=== PATIENT | female | born 1940 | race Caucasian/White ===

== ENCOUNTER 2017-07-09 18:04 | Inpatient (IN) | payer BC, OTHER ==
[~2017-07-09] VITALS: Ht 157.5 cm; Wt 98.6 kg
[2017-07-09 00:45] VITALS: BP 130/68; PULSE 81; TEMP 36.4
[~2017-07-09 18:04] MED LIST: AMOX500C3 PO; BENA1TAB53 PO; CHOL4POW6 PO; DILT-117 PO; FURO40TA3 PO; GLCSR10 PO; GLYCDRO6 OP; LEVO150T9 PO; LUTE6CAP PO; METF500T PO; MULT-845 PO; POTA10CA28 PO; TYLOTC500 PO; ZINC50TA3 PO; [UNRECOGNIZED DRUG - CODE] PO
[2017-07-09] MEDS ORDERED: SODIUM CHLORIDE 0.9% 1000ML 1,000 ML IV SCH (21:15)
[2017-07-09] MEDS ORDERED: ICU PROTOCOL FOR HYPERGLYCEMIA PRN (21:15)
[2017-07-09] MEDS ORDERED: LORAZEPAM 2 MG/ML 1 ML VIAL IV PRN (21:15)
[2017-07-09 21:55] LABS: BLOOD UREA NITROGEN 32 mg/dl (7-18); CALCIUM 9.8 mg/dl (8.5-10.1); CARBON DIOXIDE 19 mmol/L (21-32); CREATININE 1.33 mg/dl (0.60-1.20); GLUCOSE 145 mg/dl (70-99); PHOSPHORUS 4.5 mg/dl (2.5-4.9); POTASSIUM 8.2 mmol/L (3.5-5.1); SODIUM 141 mmol/L (136-145)
[2017-07-09 22:01] VITALS: BP 148/67; PULSE 84; TEMP 36.4; O2SAT 92
[2017-07-09] MEDS ORDERED: ONDANSETRON INJ 2 MG/ML 2 ML VIAL ONE (22:17)
[2017-07-09 22:38] LABS: ISTAT POTASSIUM 7.8 mEq/L (3.3-5.0); ISTAT SODIUM 143 mEq/L (135-144)
[2017-07-09] MEDS ORDERED: GLUCOSE 40% GEL 15 GM TUBE PO PRN (22:45)
[2017-07-09] MEDS ORDERED: GLUCAGON FOR INJ 1 MG VIAL SQ PRN (22:45)
[2017-07-09] MEDS ORDERED: DEXTROSE 50% 50 ML SYR IV PRN (22:45)
[2017-07-09] MEDS ORDERED: GLUCOSE 10 TABS/TUBE PO PRN (22:45)
--- NOTE | 2017-07-09 23:16 | History and Physical ---
History & Physical Date & Time of Service: Jul 09, 2017 at 21:54 Chief Complaint: Hypokalemia, Bradycardia Primary Care Physician: Betsy Jolley D.O. History of Present Illness Source: patient Patient is a 77 year old female with a past medical history of Right Sided CVA with hemiparesis in 2016, HTN, HLD, DM, Stage 2 CKD, and Hypothyroidism s/p treatment of thyroid cancer that presents as a Direct Admit from [facility] with Hyperkalemia. The patient reports having nausea and vomiting over the last week with minimal po intake. The patient also states that she has been having a productive cough but denies any shortness of breath, fevers, chills, or sweats. The patient was found to have a Potassium of 9.2 with a Creatinine of 1.4. The patient was given Sodium Bicarb 50ml, Calcium Cl 1gm, Dextrose 50% 50ml, Insulin Regular 2.5 units, Albuterol 1 amp, and 500ml of NS. The patient denies any chest pain, palpitations, shortness of breath, abdominal discomfort, or any other acute complaints. The patient at baseline has right sided hemiparesis, paralysis with sensation of the left lower extremity, and limited mobility of her left upper extremity. The patient is incontinent to urine and stool and has a steve placed at [facility] but does not have a chronic steve. The patient has only had 1 bowel movement over the last week and normally has 1 bowel movement daily. Social History Smoking Status: Never Smoker Drug Use: none Marital Status: single Housing status: lives alone Occupational Status: employed Immunizations History of Influenza Vaccine: Yes Influenza Vaccine Date: Feb 22, 2010 History of Tetanus Vaccine?: Yes History of Pneumococcal: Yes Pneumococcal Date: Apr 29, 2009 History of Hepatitis B Vaccine: No Multi-Drug Resistant Organisms History of MDRO: No Allergies Coded Allergies: Latex1 -Allergic Contact Dermititis (Verified Allergy, Intermediate, SKIN PEELS, 02/18/16) Sulfa Drugs (Verified Allergy, Intermediate, "SKIN TURNS RED", 02/18/16) Codeine (Verified Adverse Reaction, Mild, MAKES HER SICK, 02/18/16) Home Medications Scheduled Acetaminophen (Tylenol), 1,000 MG PO PRN Albuterol Sulfate (Albuterol Sulfate), 2.5 MG INH Q6 Aspirin (Aspirin), 81 MG PO DAILY Atorvastatin (Lipitor), 40 MG PO DAILY Benazepril (Lotensin), 40 MG PO HS Diltiazem Hcl Ext Rel (Tiazac), 300 MG PO DAILY Fish Oil ([place]-3), 1 CAP PO BID Furosemide (Lasix), 60 MG PO DAILY Glipizide (Glucotrol), 10 MG PO DAILY Glipizide (Glucotrol), 5 MG PO DAILY Levothyroxine Sodium (Levothyroxine Sodium), 137 MCG PO DAILY Metformin Ext Rel (Glucophage Ext Rel), 1,000 MG PO BID Multiple Vitamins W/ Minerals (Centrum Silver Adult 50+), 1 TAB PO DAILY Potassium Chloride (Micro-K Ext Rel), 10 MEQ PO DAILY Ranitidine (Zantac), 150 MG PO BID Spironolactone (Spironolactone), 25 MG PO DAILY Scheduled PRN Ondansetron Odt (Zofran Odt), 4 MG PO Q6 PRN for Nausea Tramadol HCl (Tramadol HCl), 50 MG PO TID PRN for Pain Review of Systems Constitutional: + fatigue, No fever, No chills, No sweats Respiratory: + cough, + sputum, No wheezing, No shortness of breath Cardiovascular: No chest pain, No PND, No edema, No palpitations Abdomen: No pain, No nausea, No vomiting, No diarrhea, No constipation Musculoskeletal: No joint pain Genitourinary - Female: No dysuria Physical Exam General Appearance: WD/WN, no apparent distress Head: normocephalic, atraumatic Respiratory/Chest: chest non-tender, lungs clear, normal breath sounds Cardiovascular: regular rate, rhythm, no edema, no gallop Abdomen/GI: normal bowel sounds, non tender, soft Extremities/Musculoskelatal: no calf tenderness, no pedal edema, + swelling Neurologic/Psych: alert, normal mood/affect, oriented x 3 Diagnostics Laboratory Results Results Past 24 Hours Test 07/09/17 21:12 Range/Units Microbiology Results 07/09/17 MRSA DNA Surveillance Screen, Received Pending Impression Assessment and Plan Patient is a 77 year old female with a past medical history of Right Sided CVA with hemiparesis in 2016, HTN, HLD, DM, Stage 2 CKD, and Hypothyroidism s/p treatment of thyroid cancer that presents as a Direct Admit from [facility] with Hyperkalemia Acute Hyperkalemia - Most likely 2/2 medication use (Aldactone, Benazepril, and K+) --> Currently holding - Administered at outside hospital: Sodium Bicarb 50ml, Calcium Cl 1gm, Dextrose 50% 50ml, Insulin Regular 2.5 units, Albuterol 1 amp, and 500ml of NS - STAT BMP --> Repeat K+ of 8.2 (9.2 at [facility]) - ABG: pH 7.328, PCO2 32.0, PO2 70, HCO3 16.8 - Consult Nephrology - Placement in ICU --> Temporary dialysis catheter placed - Plan for Dialysis --> Consult placed to Dr. Huang who is assessing patient - STAT EKG: NSR, No ST Changes or T wave abnormalities - 1/2 NS @ 75 mls + NaHCO3 @ 100mls/hr - CK - Lactic Acid CKD Stage 2 - Cr currently 1.33 --> Last Cr in 2016 0.76 --> Previously followed Dr. Garcia in outpatient setting - Magnesium of 1.3 --> 2gm Magnesium IV Urinary Incontinence 2/2 CVA - Steve Catheter - Urinalysis and Urine Culture - Monitor I/O Diabetes - ISS with BSG Checks AC/HS - Hold home Metformin and Glipizide Hypothyroidism - Synthroid 75 mcg IV QAM Hypertension - Hold home Benazepril, Aldactone, and Cardizem CVD - Holding home Aspirin - Holding home Tramadol GERD - Pepcid IV DVT - SCDs Resuscitation Status - DNR 77 y/o F CVA with R hemiparesis 2016, HTN, HPL, DM II, CKD II, Thyroid CA, Hypothyroidism. Presents from [facility] due to hyperkalemia primarily. She had presented to [facility] with c/o nausea and periodic vomiting over the past week in addition to a productive cough. Her initial K was 9.0. This was confirmed. She was treated prior to arrival and had a repeat K confirmed at 8.2. Interestingly, she does not have related EKG changes. OE AAO x 3 S1,2 R CTAB NT, ND No CCE A dialysis cath has been placed in her R neck Chronic R weakness is noted P: Pt has been evaluated by nephrology on arrival and dialysis is being considered She is admitted to the ICU in the interim - she was provided with Ca gluconate, bicarb, insulin/D50 - we have ordered Kayexalate - She had been prescribed an ARB, Aldactone and K which are obviously held Placed on SS for DM and can resume Diltiazem when K improves as bradycardia was reported prior to treatment Level of Care Critical Care Resuscitation Status DO NOT RESUSCITATE VTE Prophylaxis VTE Risk Assessment Done? Y/N: Yes Risk Level: Moderate Given or contraindicated: SCD's
[2017-07-09 23:18] VITALS: BP 157/77; PULSE 78; TEMP 36.4; O2SAT 92; BMI 36.0
--- NOTE | 2017-07-09 23:25 | Critical Care Consultation ---
Critical Care Consultation Date of Consultation: Jul 09, 2017. Attending Physician: Nicol Mcdonald MD Reason for Consultation: Hyperkalemia History of Present Illness Angelica Roca is 77yo retirement resident with NIDDM, HTN, HL, and 2016 stroke level her left side paralyzed that presents as a direct admit today from [facility] after increasing nausea and vomiting. She was found to have a K of 9.0 and was transferred here after initial medical management was completed in their ED. patient received 1 g of calcium chloride, 50 mEq of sodium bicarbonate , 2.5 units of insulin 2, 40 mg of IV furosemide, 1 hour long albuterol nebulizer treatment upon arrival to our hospital patient's labs will be drawn and her potassium was still elevated at 8.2. I have had a long conversation with Dr. Garner, the online communications manager afternoon nanny for [employer] this evening. Per her evaluation she states that this is not a typical presentation for hyperkalemia as patient's EKG remains at her prior baseline without signs of elevated potassium, minimal acid-base and electrolyte disturbances. She believes this is likely medication induced as the patient has been taking potassium supplements, ACEi, and mineralocorticosteroids antagonists. She has recommended dialysis emergently tonight for rapid reduction of potassium levels. Patient has undergone a right internal jugular temporary hemodialysis catheter insertion by myself this evening without consultation and dialysis has begun. Per patient she followed with Dr. Gaona to prior to her stroke when she lives locally in [place]. Now that she lives in [place] the retirement she follows with the physicians provided there. The patient denies weight loss, fever, dizziness, headache, muscle weakness, numbness, change in vision, sore throat, chest pain, palpitations, awareness of tachyarrhythmias, leg swelling, shortness of breath, bloody stools, diarrhea, constipation, abdominal pain, other changes in urine or bowel habits. Pt has had intermittent dry cough and continues with some N/V since admission. Past Medical/Surgical History Medical Problems: Acquired hypothyroidism HERMINIO (acute kidney injury) Arthritis of knee Benign essential hypertension Chronic low back pain Diabetes mellitus type 2 History of thrombolytic therapy Hyperkalemia Obesity Serum cholesterol borderline high Stroke Family History No family hx of kidney dz. Otherwise not pertinent. Social History Smoking Status: Never Smoker Drug Use: none Marital Status: single Housing Status: lives alone Occupation Status: employed Allergies Coded Allergies: Latex1 -Allergic Contact Dermititis (Verified Allergy, Intermediate, SKIN PEELS, 02/18/16) Sulfa Drugs (Verified Allergy, Intermediate, "SKIN TURNS RED", 02/18/16) Codeine (Verified Adverse Reaction, Mild, MAKES HER SICK, 02/18/16) Home Medications Scheduled Acetaminophen (Tylenol), 1,000 MG PO PRN Albuterol Sulfate (Albuterol Sulfate), 2.5 MG INH Q6 Aspirin (Aspirin), 81 MG PO DAILY Atorvastatin (Lipitor), 40 MG PO DAILY Benazepril (Lotensin), 40 MG PO HS Diltiazem Hcl Ext Rel (Tiazac), 300 MG PO DAILY Fish Oil ([place]-3), 1 CAP PO BID Furosemide (Lasix), 60 MG PO DAILY Glipizide (Glucotrol), 10 MG PO DAILY Glipizide (Glucotrol), 5 MG PO DAILY Levothyroxine Sodium (Levothyroxine Sodium), 137 MCG PO DAILY Metformin Ext Rel (Glucophage Ext Rel), 1,000 MG PO BID Multiple Vitamins W/ Minerals (Centrum Silver Adult 50+), 1 TAB PO DAILY Potassium Chloride (Micro-K Ext Rel), 10 MEQ PO DAILY Ranitidine (Zantac), 150 MG PO BID Spironolactone (Spironolactone), 25 MG PO DAILY Scheduled PRN Ondansetron Odt (Zofran Odt), 4 MG PO Q6 PRN for Nausea Tramadol HCl (Tramadol HCl), 50 MG PO TID PRN for Pain Current Inpatient Medications Current Inpatient Medications Medications (Trade) Dose Ordered Sig/Ld Route Start Time Stop Time Status Last Admin Dose Admin Acetaminophen (Tylenol Tab) 650 mg Q4H PRN PO 07/09/17 21:15 08/08/17 21:14 Lorazepam (Ativan Inj) 0.5 mg Q4H PRN IV 07/09/17 21:15 08/08/17 21:14 Miscellaneous Information (Icu Protocol For Hyperglycemia) 1 ea PRN PRN N/A 07/09/17 21:15 07/11/17 21:14 Sodium Chloride 1,000 ml @ 100 mls/hr Q10H IV 07/09/17 21:15 07/10/17 17:14 Insulin Aspart (novoLOG ASPART) SLIDING SCALE If C... Q6 SC 07/10/17 00:00 08/09/17 00:00 Glucose (Glucose 40% Gel) 15-30 GRAMS 15 GRAMS... UD PRN PO 07/09/17 22:45 08/08/17 22:44 Glucose (Glucose Chew Tab) 4-8 Tablets 4 Tabl... UD PRN PO 07/09/17 22:45 08/08/17 22:44 Dextrose (Dextrose 50% 50ML Syringe) 25-50ML OF 50% DW IV FOR... UD PRN IV 07/09/17 22:45 08/08/17 22:44 Glucagon (Glucagon Inj) 1 mg UD PRN SQ 07/09/17 22:45 08/08/17 22:44 Review of Systems 12 systems reviewed and negative other than previously mentioned in the HPI. Physical Exam Date Time Temp Pulse Resp B/P (MAP) Pulse Ox O2 Delivery O2 Flow Rate FiO2 07/09/17 22:01 36.4 84 18 148/67 (94) 92 Room Air Vital Signs - as noted Laboratory Data - as noted Physical Exam: General - NAD, appears fatigued Eyes - PERRL, EOMI No icterus, gaze conjugate ENT - Mucosa dry, no lesions or candidiasis Neck - Supple, trachea midline, no masses or lymphadenopathy, no JVD or bruits Lungs - No paradoxical chest wall movement, clear to auscultation bilaterally, no wheezes, rales, or rhonchi Heart - Reg rate and rhythm, No murmur, rubs, clicks, or gallops appreciated Abdomen - BS present, no bruits noted, tympanic to percussion, soft, nontender, nondistended, no organomegaly Extremities - No edema, pedal pulses intact, right hand in brace, right hemiparesis Neuro - A&OX3 CN:PERRL, EOMI, no facial asymmetry, uvula/tongue midline Laboratory Results Last 24 Hours Test 07/09/17 21:12 07/09/17 22:27 07/09/17 22:38 07/09/17 22:49 Sodium Level 141 mmol/L Potassium Level 8.2 mmol/L Chloride Level 117 mmol/L Carbon Dioxide Level 19 mmol/L Anion Gap 5.0 mmol/L Blood Urea Nitrogen 32 mg/dl Creatinine 1.33 mg/dl Estimated GFR () 44.9 Estimated GFR (Non- 38.7 BUN/Creatinine Ratio 24.1 Random Glucose 145 mg/dl Calcium Level 9.8 mg/dl Phosphorus Level 4.5 mg/dl Magnesium Level 1.3 mg/dl Bedside Hemoglobin 10.5 g/dl Bedside Hematocrit 31 % Bedside Blood Gas pH (LAB) 7.33 Bedside Blood Gas pCO2 (LAB) 32 mmHg Bedside Blood Gas pO2 (LAB) 70 mmHg Bedside Blood Gas HCO3 (LAB) 17 meq/L Bedside Blood Gas Total CO2 18 mEq/l Bedside Blood Gas Base Excess (LAB) -9.0 meq/L Bedside Blood Gas O2 Saturation 93.0 % Bedside Sodium 143 mEq/L Bedside Potassium 7.8 mEq/L Diagnostic Results CXR 07/09/17 without pulmonary process. Right IJ Catheter in place without pneumo. Assessment & Plan (1) Hyperkalemia (2) HERMINIO (acute kidney injury) (3) Acquired hypothyroidism (4) Benign essential hypertension (5) Diabetes mellitus type 2 (6) Obesity PLAN: Fluids/Renal: * Renal on Board * HD Catheter placed for planned emergent HD * K 8.2 now, prior 9.0, repeat after HD * Per Nephro: 1/2NS with 75meq of HCO3 @ 100mL/hr * Replace 2g MG IV * Monitor I&Os * Eason in place to gravity * Obtain U/A Neuro: * No reported pain * Neuro checks per protocol * Remaining Right Hemiparesis 06/14 to 2015 stroke Resp: * Supplemental oxygen as required; Room Air Currently * Adequate Saturations * Dry nagging cough, no production * CXR without obvious acute process CV: * At increased risk for arrhythmia 2/2 hyperkalemia * EKG unchanged from baseline, monitor * Troponin Neg at [facility] * Holding ACEi, K Supplements * Monitor on telemetry ID: * No signs of infection currently * Trend Fever Curve * WBC elevated, repeat in AM GI/Nutrition: * Sips and Chips overnight * Zofran for nausea, monitor QTc * Likely increase to full liquids as nausea allows * GERD: Continue PPI Heme: * H&H WNL * Monitor CBC * DVT Prophylaxis: SCDs ordered Endocrine: * DIDDM * Accu-Checks per protocol, started insulin infusion for 2 blood sugars greater than 180 * Holding Metformin and Glipizide * SSI in place * Hypothyroidism * Continue Synthroid Access: Difficult stick, Failed attempts by IV team. 24g currently. Consider consent for PICC in AM CCT: 65 Minutes; This time is exclusive of all separately billable procedures. Thank you for involving us in the care of this patient. Please refer to Dr. Henri Simpson's addendum for further recommendations. I have personally evaluated and examined this patient. I agree with assessment and plan of Patrizia Briceño PA-C. During my evaluation I provided consent for the temporary hemodialysis catheter. This point the patient is critically ill due to acute renal failure with severe hyperkalemia necessitating emergent dialysis.
[2017-07-09] MEDS ORDERED: SODIUM POLYST. SULF SUSP 15G/60ML PO STA (23:26)
--- NOTE | 2017-07-09 23:33 | Procedure Note ---
Procedure Note Procedure Date Jul 09, 2017. Central Line Procedure time out: side/site verified, patient ID confirmed, sterile procedure used Consent obtained: written Time of procedure: 22:20 Performed by: physician virtual reality specialist Indications: other (Hemodialysis) Prep: chlorhexadine prep, sterile drape, sterile procedures used Anesthesia: lidocaine 1% without epi Volume anesthetic (ml's): 10 Central line lumen: double Central line location: internal jugular (R) Additional details: percutaneous placement, ultrasound guidance, Selinger technique used, line sutured, good blood return CXR: appropriate position, no pneumothorax Complications: none Patient tolerated procedure: well Post-procedure vital signs: reviewed and stable Comments: Critical Care Medicine Point of Care Bedside Ultrasound Procedure: Procedural Ultrasound Procedure Date: 07/09/17 Indication: Hyperkalemia requiring Attending: Ligia Simpson DO Resident/Physician Textiles Sales Representative: Nai Briceño; BECKI If for central venous access Artery AND Vein visualized: Y Compressible Vein: Y Guidewire or Short Catheter seen in vein prior to dilation: Y Line confirmed in Vein with ultrasound: Y If no lung sliding or not obtained has CXR been ordered: Y Impression: Hyperkalemia Plan: * Line in place with good blood return * May dialyze at the Computer Operations Analyst's discretion Images obtained are saved for permanent record
--- NOTE | 2017-07-09 23:56 | Nephrology Consultation ---
Nephrology Consultation Date of Consultation: Jul 09, 2017. Attending Physician: Dr Ortiz Requesting Physician: Dr Ortiz Reason for Consultation: Hyperkalemia History of Present Illness 77 year old female [place] resident w/ stroke hx sent from her facility to [facility] this evening after a week of malaise, N, vomiting and found to have K 9.1, creat 1.6. States her vomiting had been going on for a few days and was mostly clear phlegm; no blood, no bile. PMH includes L lacunar stroke w/ R hemiparesis , hypothyroid, IDDM, HTN, HL, urethral sling surgery. She received albuterol nebs, IV insulin 5 units, 40 mg IV lasix, 1/2L NS, 1 gm calcium chloride, 1 amp sodium bicarb and was transferred directly to our icu. Her outpt meds include low dose K supplements, nathan inhibitor, spironolactone, metformin. Her ECG at outside hospital showed junctional rhythm w/ HR in 40s. Her ECG here shows NSR w/ stable/chronic changes in lead II. Past Medical/Surgical History Medical Problems: (1) Hypokalemia Status: Acute -HTN -HL -NIDDM on metformin -hypothyroid after resection for thyroid CA 2011 -previous strokes > L lacunar stroke 02/2016 -CKD 2 w/ nephrotic range proteinuria, has followed w/ Dr Gaona in the past most recently 2016 -s/p 04/2015 [facility] [place] urethral sling/partial hysterectomy -s/p knee replacement, cholecystectomy, achilles tendon repair Family History no CKD/ESRD Social History Smoking Status: Never Smoker Alcohol Use: none Drug Use: none Marital Status: single Housing Status: shelter Occupation Status: disabled Allergies Coded Allergies: Latex1 -Allergic Contact Dermititis (Verified Allergy, Intermediate, SKIN PEELS, 02/18/16) Sulfa Drugs (Verified Allergy, Intermediate, "SKIN TURNS RED", 02/18/16) Codeine (Verified Adverse Reaction, Mild, MAKES HER SICK, 02/18/16) Medications Current Inpatient Medications Medications (Trade) Dose Ordered Sig/Ld Route Start Time Stop Time Status Last Admin Dose Admin Acetaminophen (Tylenol Tab) 650 mg Q4H PRN PO 07/09/17 21:15 08/08/17 21:14 Lorazepam (Ativan Inj) 0.5 mg Q4H PRN IV 07/09/17 21:15 08/08/17 21:14 Miscellaneous Information (Icu Protocol For Hyperglycemia) 1 ea PRN PRN N/A 07/09/17 21:15 07/11/17 21:14 Sodium Chloride 1,000 ml @ 100 mls/hr Q10H IV 07/09/17 21:15 07/10/17 17:14 Home Meds and Scripts FROM LAST ADMISSion MEDS 06/2017 reviewed, remarkable for metformin, K suppls, benazepril, spironolactone, diltiazem Review of Systems Constitutional: + fatigue, No fever, No weight loss Eyes: No worsening of vision ENT: No hearing loss, No unusual epistaxis Respiratory: No cough, No shortness of breath Cardiac: No chest pain, No edema, No palpitations Abdomen: + see HPI, + nausea, + vomiting, No pain, No diarrhea Musculoskeletal: No joint pain, No muscle pain Female : + problem reported (since her stroke states that her chronic voiding sx have resolved) Neuro: + see HPI, + paralysis (R side), No memory loss, No numbness/tingling Psych: No depression symptoms, No anxiety Heme: No abnormal bleeding/bruising Endo: + fatigue Skin: No rash, No itch Physical Exam General Appearance: WD/WN, no apparent distress, + obese, + pertinent finding ( on RA, oriented x 3) Eyes: EOMI ENT: hearing grossly normal Neck: supple Respiratory/Chest: lungs clear, normal breath sounds, no respiratory distress Cardiovascular: regular rate, rhythm, no edema Abdomen: normal bowel sounds, non tender, soft, + pertinent finding (steve w/ ample yellow urine) Extremities: non-tender, no pedal edema, + pertinent finding (R hand / english teacher brace) Neurologic/Psych: alert, normal mood/affect, oriented x 3, + pertinent finding (R hemiparesis) Skin: no jaundice, warm/dry, no rash, + pallor Diagnostics Last 24 Hours Test 07/09/17 21:12 Sodium Level 141 mmol/L Potassium Level 8.2 mmol/L Chloride Level 117 mmol/L Carbon Dioxide Level 19 mmol/L Anion Gap 5.0 mmol/L Blood Urea Nitrogen 32 mg/dl Creatinine 1.33 mg/dl Estimated GFR () 44.9 Estimated GFR (Non- 38.7 BUN/Creatinine Ratio 24.1 Random Glucose 145 mg/dl Calcium Level 9.8 mg/dl Phosphorus Level 4.5 mg/dl Magnesium Level 1.3 mg/dl Diagnostic Radiology: see cxr from osh OSH labs/studies BMP > 139/ 9.1/ 115/ 17/ 34/ 1.4/ BG 126; albumin 3.1 TSH 0.12 hgb 10.9; plts 258 UACM > hazy yellow urine, 1030, 2+ protein, many bacteria, wbc, LE CXR > no acute cp process 02/2017 outpatient labs >> creat 0.6, K 4.1 Assessment & Plan 77 y/o F w/ NIDDM, hx of nephrotic range proteinuria, stroke w/ chronic R hemiparesis, HTN, HL, past urethral sling procedure had N/ V/ malaise worse midday today and sent to ER for eval where labs showed HERMINIO w/ K 9.1 at OSH, 8.2 here. Baseline creatinine 0.6. Severe hyperkalemia, likely induced by her outpatient medications and complicated by junctional cardiac rhythm at OSH This is not a typical presentation > she has minimal acid base or other electrolyte perturbations, no current ECG changes (though she has had stabilizing medical therapy); likeliest hyperkalemia is medication induced (K supplements + NATHAN + mineralcorticoid antagonist -- all of which are now held). No hemolysis or other concerns about lab error, no thyroid so no hyperthyroid role here, no CBC abnormalities to suggest pseudohyperkalemia. She would likely improve acceptably with medical therapies, but the risks if she does not are unacceptable. -will do acute dialysis tonight to lower her K; no fluid removal -indications, risks, alternatives to dialysis were discussed w/ pt >10 min; consent on chart -she may not need more than one or two dialysis treatments -recommend 1/2 NS w/ 75 mEq/ L sodium bicarbonate to run at 100 mL hourly as well Hypomagnesemia -pls give 2 gm IV mag -look to start po in AM when taking pills/po Nonoliguric HERMINIO, presume prerenal -fluids as above -hold nephrotoxic meds Hypertension on rate control med -recommend continue calcium channel grace from prior to admission w/ hold parameters Complexity high. Appreciate consult; care coordinated w/ Bashir Walker.
[2017-07-09 23:59] VITALS: O2SAT 92
[2017-07-10] VITALS (103 sets, daily range): BP systolic 53–168; BP diastolic 38–90; PULSE 70–143; TEMP 36.4–37.4; O2SAT 77–100
[2017-07-10] MEDS ORDERED: FAMOTIDINE IV INJ 20 MG in SYRINGE 3 ML IV SCH (01:00)
[2017-07-10] MEDS: SODIUM BICARBONATE 8.4% INJ 75 MEQ in SODIUM CHLORIDE 0.45% 1000ML 1,000 ML IV SCH ×2 (01:08→11:25)
[2017-07-10] MEDS ORDERED: METOCLOPRAMIDE HCL INJ 5 MG/ML 2 ML VIAL ONE (02:20)
[2017-07-10] MEDS ORDERED: MAGNESIUM SULFATE 1GM / D5W 1 GM in PREMIXED IN D5W 100 ML IV SCH (02:30)
[2017-07-10] MEDS ORDERED: ACETAMINOPHEN 500 MG TAB PO SCH (04:45)
[2017-07-10 05:43] LABS: HEMATOCRIT 30.8 % (37-47); HEMOGLOBIN 10.2 g/dL (12.0-16.0); MEAN CELL VOLUME 100.7 fL (80-100); MEAN CORPUSCULAR HEMOGLOBIN 33.3 pg (25-34); MEAN CORPUSCULAR HGB CONC 33.1 g/dl (32-36); MEAN PLATELET VOLUME 9.2 fL (7.4-10.4); PLATELET COUNT 184 K/uL (130-400); RED CELL DISTRIBUTION WIDTH CV 13.2 % (11.5-14.5); RED CELL DISTRIBUTION WIDTH SD 48.1 fL (36.4-46.3); WHITE BLOOD COUNT 16.64 K/uL (4.8-10.8)
[2017-07-10] MEDS: INSULIN ASPART 100 UNITS/ML 3 ML PEN SC SCH ×4 (06:00→17:20)
[2017-07-10 06:16] LABS: BASO % 0.1 %; BASO ABS # 0.01 K/uL (0-0.2); EOS % 0.1 %; EOS ABS # 0.02 K/uL (0-0.5); IG# 0.08 K/uL (0.00-0.02); LYMPH % 9.9 %; LYMPH ABS # 1.64 K/uL (1.2-3.4); MONO % 6.9 %; MONO ABS # 1.14 K/uL (0.11-0.59); NEUT % 82.5 %; NEUT ABS # 13.75 K/uL (1.4-6.5)
[2017-07-10 06:17] LABS: CREATININE 0.94 mg/dl (0.60-1.20)
[2017-07-10 06:18] LABS: CALCIUM 8.4 mg/dl (8.5-10.1); PHOSPHORUS 3.2 mg/dl (2.5-4.9); POTASSIUM 5.5 mmol/L (3.5-5.1)
[2017-07-10] MEDS ORDERED: OMEG10007 PO (06:29)
[2017-07-10] MEDS ORDERED: LEVO137T3 PO (06:29)
[2017-07-10] MEDS ORDERED: ONDA8TAB62 PO (06:29)
[2017-07-10] MEDS ORDERED: SPR25 PO (06:29)
[2017-07-10] MEDS ORDERED: ALBU1.257 INH (06:29)
[2017-07-10] MEDS ORDERED: METFTAB PO (06:29)
[2017-07-10] MEDS ORDERED: GLIP10TA9 PO (06:29)
[2017-07-10] MEDS ORDERED: GLIP5TAB3 PO (06:29)
[2017-07-10] MEDS ORDERED: MULT-506 PO (06:29)
[2017-07-10] MEDS ORDERED: ASPI81CH2 PO (06:29)
[2017-07-10] MEDS ORDERED: ULT50 PO (06:29)
[2017-07-10] MEDS ORDERED: ATOR-24 PO (06:29)
[2017-07-10] MEDS ORDERED: RANI150T85 PO (06:29)
--- NOTE | 2017-07-10 06:39 | DIAGNOSTIC IMAGING REPORT ---
CHEST ONE VIEW PORTABLE CLINICAL HISTORY: dialysis catheter placement tube position COMPARISON STUDY: 10/23/2011 FINDINGS: Central catheter place in superior vena cava junction with right atrium. Remainder the study is unchanged. Prominence of pulmonary vasculature is present. No evidence pneumothorax. IMPRESSION: Central catheter placed in the superior vena cava at the juncture with the right atrium. No evidence for pneumothorax. The above report was generated using voice recognition software. It may contain grammatical, syntax or spelling errors. Electronically signed by: Clifton Wesley M.D. 07/10/2017 6:38 AM Dictated Date/Time: 07/10/2017 6:35 AM
[2017-07-10 06:51] LABS: HEMOGLOBIN A1C 5.9 % (4.5-5.6)
--- NOTE | 2017-07-10 08:49 | Nephrology Progress Note ---
Nephrology Progress Note Date of Service: Jul 10, 2017. Subjective 77 yo female who presented with hyperkalemia thought to be medication induced and required a dialysis treatment last night. pt awake. appears somewhat confused with the fact she thought she was getting a kidney transplant last night but knows where she is and that she has a history of a stroke and unable to move her right side. Objective Date Time Temp Pulse Resp B/P (MAP) Pulse Ox O2 Delivery O2 Flow Rate FiO2 07/10/17 08:00 37.3 90 18 103/56 (72) 94 Nasal Cannula 2.0 07/10/17 08:00 Nasal Cannula 2.0 07/10/17 06:46 87 108/63 (78) 07/10/17 06:31 94 18 104/58 (73) 93 Nasal Cannula 2.0 07/10/17 06:16 94 107/57 (74) 87 07/10/17 05:46 97 130/71 (90) 84 07/10/17 05:31 98 120/58 (78) 86 07/10/17 05:01 99 107/71 (83) 89 07/10/17 04:46 94 119/72 (88) 90 07/10/17 04:31 96 112/67 (82) 92 07/10/17 04:16 106 121/88 (99) 83 07/10/17 04:01 36.9 94 18 122/68 (86) 89 Room Air 07/10/17 04:00 92 Room Air 07/10/17 03:46 96 103/65 (78) 90 07/10/17 03:16 96 110/64 (79) 93 07/10/17 03:14 103 104/54 (71) 92 07/10/17 03:13 99 104/54 (71) 94 07/10/17 03:01 104 129/67 (87) 94 07/10/17 03:00 100 129/67 07/10/17 02:46 101 118/61 (80) 90 07/10/17 02:45 99 118/61 07/10/17 02:32 105 119/55 (76) 92 07/10/17 02:30 105 119/55 07/10/17 02:17 114 168/90 (116) 93 07/10/17 02:15 103 168/90 07/10/17 02:01 92 18 120/66 (84) 91 Room Air 07/10/17 01:46 89 127/62 (83) 93 07/10/17 01:45 87 120/66 07/10/17 01:33 83 123/62 (82) 96 07/10/17 01:30 84 123/62 07/10/17 01:16 86 116/77 (90) 81 07/10/17 01:15 86 116/77 07/10/17 01:01 79 130/68 (88) 07/10/17 00:46 81 136/68 (90) 93 07/10/17 00:01 36.6 78 20 124/84 (97) 92 Room Air 07/09/17 23:59 92 Room Air 07/09/17 23:18 36.4 78 18 157/77 92 Room Air 07/09/17 22:01 36.4 84 18 148/67 (94) 92 Room Air Physical Exam: General-aaox3 with periods of delirium Eyes-no scleral icterus ENT-mmm Neck-supple Lungs-cta Heart-rrr Abdomen-bs+ s/nt/nd Extremities-no c/c/e Neuro-right sided hemiparesis Current Inpatient Medications Medications (Trade) Dose Ordered Sig/Ld Route Start Time Stop Time Status Last Admin Dose Admin Acetaminophen (Tylenol Tab) 650 mg Q4H PRN PO 07/09/17 21:15 08/08/17 21:14 Lorazepam (Ativan Inj) 0.5 mg Q4H PRN IV 07/09/17 21:15 08/08/17 21:14 Miscellaneous Information ([facility] Protocol For Hyperglycemia) 1 ea PRN PRN N/A 07/09/17 21:15 07/11/17 21:14 Insulin Aspart (novoLOG ASPART) SLIDING SCALE If C... Q6 SC 07/10/17 00:00 08/09/17 00:00 Glucose (Glucose 40% Gel) 15-30 GRAMS 15 GRAMS... UD PRN PO 07/09/17 22:45 08/08/17 22:44 Glucose (Glucose Chew Tab) 4-8 Tablets 4 Tabl... UD PRN PO 07/09/17 22:45 08/08/17 22:44 Dextrose (Dextrose 50% 50ML Syringe) 25-50ML OF 50% DW IV FOR... UD PRN IV 07/09/17 22:45 08/08/17 22:44 Glucagon (Glucagon Inj) 1 mg UD PRN SQ 07/09/17 22:45 08/08/17 22:44 Famotidine 20 mg/ Syringe 5 ml @ 2.5 mls/min Q12H IV 07/10/17 01:00 08/09/17 00:59 07/10/17 01:53 2.5 MLS/MIN Sodium Bicarbonate 75 meq/Sodium Chloride 1,075 ml @ 100 mls/hr [id number] IV 07/10/17 00:30 08/09/17 00:29 07/10/17 01:08 100 MLS/HR Furosemide (Lasix Tab) 60 mg DAILY PO 07/10/17 09:00 08/09/17 08:59 Multivitamins/ Minerals (Multivitamin W/ Minerals Tab) 1 tab DAILY PO 07/10/17 09:00 08/09/17 08:59 Diltiazem HCl (TIAzac CAP) 120 mg DAILY PO 07/10/17 09:00 08/09/17 08:59 Diltiazem HCl (TIAzac CAP) 180 mg DAILY PO 07/10/17 09:00 08/09/17 08:59 Levothyroxine Sodium 75 mcg/ Syringe 3.75 ml @ 2 mls/min DAILY@09 IV 07/10/17 09:00 08/09/17 08:59 Last 24 Hours Test 07/09/17 21:12 07/09/17 22:27 07/10/17 00:27 07/10/17 05:14 Sodium Level 141 mmol/L 140 mmol/L Potassium Level 8.2 mmol/L 5.5 mmol/L Chloride Level 117 mmol/L 109 mmol/L Carbon Dioxide Level 19 mmol/L 22 mmol/L Anion Gap 5.0 mmol/L 9.0 mmol/L Blood Urea Nitrogen 32 mg/dl 19 mg/dl Creatinine 1.33 mg/dl 0.94 mg/dl Estimated GFR () 44.9 68.3 Estimated GFR (Non- 38.7 58.9 BUN/Creatinine Ratio 24.1 20.5 Random Glucose 145 mg/dl 149 mg/dl Calcium Level 9.8 mg/dl 8.4 mg/dl Phosphorus Level 4.5 mg/dl 3.2 mg/dl Magnesium Level 1.3 mg/dl 1.5 mg/dl Bedside Hemoglobin 10.5 g/dl Bedside Hematocrit 31 % Bedside Blood Gas pH (LAB) 7.33 Bedside Blood Gas pCO2 (LAB) 32 mmHg Bedside Blood Gas pO2 (LAB) 70 mmHg Bedside Blood Gas HCO3 (LAB) 17 meq/L Bedside Blood Gas Total CO2 18 mEq/l Bedside Blood Gas Base Excess (LAB) -9.0 meq/L Bedside Blood Gas O2 Saturation 93.0 % Bedside Sodium 143 mEq/L Bedside Potassium 7.8 mEq/L Bedside Glucose 156 mg/dl Lactic Acid Level 1.1 mmol/L Total Creatine Kinase 114 U/L White Blood Count 16.64 K/uL Red Blood Count 3.06 M/uL Hemoglobin 10.2 g/dL Hematocrit 30.8 % Mean Corpuscular Volume 100.7 fL Mean Corpuscular Hemoglobin 33.3 pg Mean Corpuscular Hemoglobin Concent 33.1 g/dl Platelet Count 184 K/uL Mean Platelet Volume 9.2 fL Neutrophils (%) (Auto) 82.5 % Lymphocytes (%) (Auto) 9.9 % Monocytes (%) (Auto) 6.9 % Eosinophils (%) (Auto) 0.1 % Basophils (%) (Auto) 0.1 % Neutrophils # (Auto) 13.75 K/uL Lymphocytes # (Auto) 1.64 K/uL Monocytes # (Auto) 1.14 K/uL Eosinophils # (Auto) 0.02 K/uL Basophils # (Auto) 0.01 K/uL RDW Standard Deviation 48.1 fL RDW Coefficient of Variation 13.2 % Immature Granulocyte % (Auto) 0.5 % Immature Granulocyte # (Auto) 0.08 K/uL Est Creatinine Clear Calc Drug Dose 52.9 ml/min Estimated Average Glucose 123 mg/dl Hemoglobin A1c 5.9 % Test 07/10/17 05:24 07/10/17 06:26 Bedside Glucose 148 mg/dl Date/Time Source Procedure Growth Status 07/10/17 06:26 Urine,Catheterized Urine Culture Pending Ordered Assessment & Plan hyperkalemia-thought to be medication induced requiring a dialysis treatment. k is better today and urinating very well. heart rate much improved. concerned with potassium rebound with k levels trending back up. would like to repeat bmp at noon today and if k levels continue to improve, plan on removal of catheter today. however if k continues to trend back up, will do another treatment again today.
[2017-07-10] MEDS ORDERED: LEVOTHYROXINE 150 MCG TAB PO SCH (09:00)
[2017-07-10] MEDS ORDERED: FUROSEMIDE 40 MG TAB PO SCH (09:00)
[2017-07-10] MEDS: DILTIAZEM HCL 120 MG EXT REL CAP PO SCH ×2 (09:00→15:38)
[2017-07-10] MEDS ORDERED: LEVOTHYROXINE SODIUM 20 MCG/1 ML IM SCH (09:00)
[2017-07-10] MEDS: DILTIAZEM HCL (TIAzac) 180 MG CAPCR PO SCH ×2 (09:00→15:37)
[2017-07-10] MEDS: CEROVITE ADV FORMULA TAB PO SCH (09:00)
[2017-07-10] MEDS: LEVOTHYROXINE SODIUM INJ 75 MCG in SYRINGE 0 ML IV SCH (09:48)
[2017-07-10 11:32] LABS: ISTAT CREATININE 0.8 mg/dl (0.6-1.3); ISTAT IONIZED CALCIUM 1.24 mmol/l (1.12-1.32); ISTAT POTASSIUM 5.3 mEq/L (3.3-5.0)
[2017-07-10 11:43] LABS: INFLUENZA A PCR Neg for Influ A (NEG); INFLUENZA B PCR Neg for Influ B (NEG)
[2017-07-10 13:08] LABS: CALCIUM 8.5 mg/dl (8.5-10.1); CREATININE 0.93 mg/dl (0.60-1.20); POTASSIUM 5.5 mmol/L (3.5-5.1)
[2017-07-10] MEDS: HEPARIN SOD 5000 UNIT/0.5 ML CARP SC SCH ×2 (14:06→21:29)
[2017-07-10] MEDS ORDERED: METOPROLOL TARTRATE 1 MG/ML VIAL ONE ×2 (15:52→17:27)
[2017-07-10] MEDS ORDERED: ASPIRIN 81 MG CHEW PO ONE (16:30)
[2017-07-10] MEDS ORDERED: NURSING VERBAL MED ORDER ONE ×2 (17:00→17:30)
[2017-07-10] MEDS ORDERED: AMIODARONE IV BOLUS / DRIP IV STA (19:19)
[2017-07-10] MEDS ORDERED: AMIODARONE / D5W 100 ML IV SCH (19:25)
[2017-07-10] MEDS ORDERED: AMIODARONE / D5W 200 ML IV SCH (19:35)
--- NOTE | 2017-07-10 20:14 | Critical Care Progress Note ---
Critical Care Progress Note Date of Service Jul 10, 2017. Attending Dr. Simpson Subjective This is a 77-year-old female that was transferred from [facility] yesterday with a potassium greater than 9. A temporary dialysis catheter was placed on arrival in [facility] last evening and patient received urgent dialysis. Throughout the day today the patient has remained stable and mentally alert. She does have a history of previous CVA with flaccid left side. The patient is able to describe the stroke and the residual symptoms. The patient was followed by Dr. Garner for nephrology yesterday on admission. She was seen by Dr. Gaona. She is undergoing dialysis again today. The patient is alert and oriented and denies any pain, SOB, chest pain, back pain. She has no fever, chills, sweats or rigors. She further denies nausea, vomiting, or diarrhea. Objective GENERAL : No acute distress. Pleasant EYES: No icterus, gaze conjugate NOSE: No evidence of epistaxis MOUTH: No lesions or candidiasis NECK: Supple LUNGS: CTA B/L, no wheezes, rales or rhonchi HEART: Regular, rate controlled ABDOMEN: Soft, NT, ND, BS Present EXTREMITIES: No LE edema, pedal pulses intact. Flaccid right side. 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 Cardiovascular * History of paroxysmal atrial fibrillation on diltiazem as an outpatient * Continue diltiazem * Patient also got 2 doses of metoprolol today * Start on Amiodarone * Follow on telemetry * Rate controlled Pulmonary * Oxygenating well -titrate supplemental O2 to maintain saturations above 90% * Chest x-ray unremarkable Renal * Electrolyte imbalance with hyperkalemia * No history of dialysis in the past * Nephrology following * Etiology for electrolyte imbalance most likely medication related * BUN 19, creatinine 0.93 * Further management per nephrology ID * MRSA screening negative * urine culture pending * WBC 16.64 * Afebrile Endocrine * Diabetes mellitus type 2 * Hemoglobin A1c 5.9 * BSG as per protocol * Old outpatient metformin and glipizide * Continue levothyroxine for hypothyroidism Heme * Hemoglobin 10.2, hematocrit 30.8 * Follow clinically Electrolytes * Electrolyte balance as above * Dialysis and correction per nephrology * Follow serial labs Nutrition * Diet as tolerated GI * Famotidine IV access * Difficult stick * 2 peripheral IVs currently in place DVT prophylaxis * Subcu heparin every 8 hours CCT: 30 minutes independent of any procedures Thank you for including us in the care of this patient. Please refer to Dr. Simpson's addendum for further recommendations. I have personally evaluated and examined this patient. I agree with assessment and plan of Marvin Lambert PA-C. Patient converted into A. fib with RVR today. She is several months removed from her stroke, she denies any significant history of intracranial hemorrhage. I reviewed the patient's chart I was not able to find any evidence of intracranial hemorrhage. At this time we will start a heparin infusion in case the patient needs cardioversion, I have also started amiodarone for rhythm control. We were able to achieve rate control with IV beta-blockade and continuing the patient's calcium channel grace. I have personally spent 35 minutes of critical care time in the direct management of this patient. This is a life/limb threatening event. This includes time spent evaluating patient, direct bedside care, chart review, placing orders, interpretation of diagnostic studies, discussion with consultants, patient, and/or family members regarding treatment decisions, as well as other required patient management activities. This time is exclusive of all separately billable procedures, and teaching time and separate from and in addition to any other critical care service time. Consults & Procedures Consultants: Nephrology -Dr. Garner Allopathic Doctor -Dr. Simpson Procedures: Temporary dialysis catheter 07/09/2017 Hemodialysis Data Medications: Current Inpatient Medications Medications (Trade) Dose Ordered Sig/Ld Route Start Time Stop Time Status Last Admin Dose Admin Acetaminophen (Tylenol Tab) 650 mg Q4H PRN PO 07/09/17 21:15 08/08/17 21:14 Lorazepam (Ativan Inj) 0.5 mg Q4H PRN IV 07/09/17 21:15 08/08/17 21:14 Miscellaneous Information ([facility] Protocol For Hyperglycemia) 1 ea PRN PRN N/A 07/09/17 21:15 07/11/17 21:14 Glucose (Glucose 40% Gel) 15-30 GRAMS 15 GRAMS... UD PRN PO 07/09/17 22:45 08/08/17 22:44 Glucose (Glucose Chew Tab) 4-8 Tablets 4 Tabl... UD PRN PO 07/09/17 22:45 08/08/17 22:44 Dextrose (Dextrose 50% 50ML Syringe) 25-50ML OF 50% DW IV FOR... UD PRN IV 07/09/17 22:45 08/08/17 22:44 Glucagon (Glucagon Inj) 1 mg UD PRN SQ 07/09/17 22:45 08/08/17 22:44 Furosemide (Lasix Tab) 60 mg DAILY PO 07/10/17 09:00 08/09/17 08:59 Multivitamins/ Minerals (Multivitamin W/ Minerals Tab) 1 tab DAILY PO 07/10/17 09:00 08/09/17 08:59 Diltiazem HCl (TIAzac CAP) 120 mg DAILY PO 07/10/17 09:00 08/09/17 08:59 07/10/17 15:38 120 MG Diltiazem HCl (TIAzac CAP) 180 mg DAILY PO 07/10/17 09:00 08/09/17 08:59 07/10/17 15:37 180 MG Levothyroxine Sodium 75 mcg/ Syringe 3.75 ml @ 2 mls/min DAILY@09 IV 07/10/17 09:00 08/09/17 08:59 07/10/17 09:48 2 MLS/MIN Heparin Sodium (Porcine) (Heparin Sq 5000 Unit/0.5ml) 5,000 unit Q8 SC 07/10/17 14:00 08/09/17 13:59 07/10/17 14:06 5,000 UNIT Insulin Aspart (novoLOG ASPART) SLIDING SCALE If C... ACHS SC 07/10/17 21:00 08/09/17 20:59 Amiodarone HCL/ Dextrose 200 ml @ 33.3 mls/hr Q6H1M IV 07/10/17 19:35 07/11/17 01:35 Amiodarone HCL/ Dextrose 200 ml @ 16.7 mls/hr [id number] IV 07/11/17 01:35 08/10/17 01:34 I & O: 24-Hour Column 07/11/17 08:00 Intake Total 843 ml Output Total 350 ml Balance 493 ml Vital Signs: Date Time Temp Pulse Resp B/P (MAP) Pulse Ox O2 Delivery O2 Flow Rate FiO2 07/10/17 19:00 85 105/60 07/10/17 18:45 106 89/69 07/10/17 18:30 102 106/67 07/10/17 18:15 101 88/64 07/10/17 18:00 37.4 108 20 88/67 (74) 97 Nasal Cannula 2.0 07/10/17 18:00 114 88/67 07/10/17 17:45 106 113/69 07/10/17 17:30 108 89/60 07/10/17 17:30 118 99/71 07/10/17 17:15 96 99/71 07/10/17 17:00 95 99 07/10/17 17:00 106 102/50 07/10/17 16:46 114 115/56 (75) 07/10/17 16:45 87 99 07/10/17 16:45 114 115/56 07/10/17 16:33 90 111/74 (86) 99 07/10/17 16:31 105 79/68 (72) 99 07/10/17 16:30 116 99 07/10/17 16:30 90 111/74 07/10/17 16:16 106 92/71 (78) 94 07/10/17 16:15 106 92/71 07/10/17 16:15 109 99 07/10/17 16:03 128 117/69 07/10/17 16:01 128 117/69 (85) 07/10/17 16:00 120 100 07/10/17 16:00 Nasal Cannula 2.0 07/10/17 16:00 37.2 123 20 102/50 (67) 97 Nasal Cannula 2.0 07/10/17 15:59 125 111/69 07/10/17 15:55 36.4 120 111/66 (81) 07/10/17 15:47 120 111/66 (81) 84 07/10/17 15:45 111 95 07/10/17 15:31 120 102/90 (94) 79 07/10/17 15:30 106 94 07/10/17 15:20 142 123/72 (89) 85 07/10/17 15:17 143 96/76 (83) 77 07/10/17 15:15 112 95 07/10/17 15:01 86 105/65 (78) 85 07/10/17 15:00 90 87 07/10/17 13:30 37.2 76 18 115/90 (98) 96 Nasal Cannula 2.0 07/10/17 11:30 37.2 88 18 129/65 (86) 96 Nasal Cannula 2.0 07/10/17 11:20 Nasal Cannula 2.0 07/10/17 11:00 95 98 07/10/17 10:46 78 120/57 (78) 07/10/17 10:31 83 116/64 (81) 07/10/17 10:16 90 142/66 (91) 95 07/10/17 10:01 88 133/69 (90) 94 07/10/17 10:00 90 95 07/10/17 10:00 37.3 82 18 142/66 (91) 96 Nasal Cannula 2.0 07/10/17 09:51 84 133/68 (89) 89 07/10/17 09:01 76 109/67 (81) 88 07/10/17 09:00 87 94 07/10/17 08:46 87 113/69 (84) 07/10/17 08:32 98 118/90 (99) 97 07/10/17 08:16 95 101/80 (87) 95 07/10/17 08:01 85 114/70 (85) 90 07/10/17 08:00 86 95 07/10/17 08:00 37.3 90 18 103/56 (72) 94 Nasal Cannula 2.0 07/10/17 08:00 Nasal Cannula 2.0 07/10/17 08:00 Nasal Cannula 07/10/17 07:46 93 111/64 (80) 82 07/10/17 07:31 86 103/56 (72) 07/10/17 07:16 83 101/56 (71) 07/10/17 07:01 83 102/59 (73) 92 07/10/17 07:00 84 94 07/10/17 06:46 87 108/63 (78) 07/10/17 06:31 94 18 104/58 (73) 93 Nasal Cannula 2.0 07/10/17 06:16 94 107/57 (74) 87 07/10/17 05:46 97 130/71 (90) 84 07/10/17 05:31 98 120/58 (78) 86 07/10/17 05:01 99 107/71 (83) 89 07/10/17 04:46 94 119/72 (88) 90 07/10/17 04:31 96 112/67 (82) 92 07/10/17 04:16 106 121/88 (99) 83 07/10/17 04:01 36.9 94 18 122/68 (86) 89 Room Air 07/10/17 04:00 92 Room Air 07/10/17 03:46 96 103/65 (78) 90 07/10/17 03:16 96 110/64 (79) 93 07/10/17 03:14 103 104/54 (71) 92 07/10/17 03:13 99 104/54 (71) 94 07/10/17 03:01 104 129/67 (87) 94 07/10/17 03:00 100 129/67 07/10/17 02:46 101 118/61 (80) 90 07/10/17 02:45 99 118/61 07/10/17 02:32 105 119/55 (76) 92 07/10/17 02:30 105 119/55 07/10/17 02:17 114 168/90 (116) 93 07/10/17 02:15 103 168/90 07/10/17 02:01 92 18 120/66 (84) 91 Room Air 07/10/17 01:46 89 127/62 (83) 93 07/10/17 01:45 87 120/66 07/10/17 01:33 83 123/62 (82) 96 07/10/17 01:30 84 123/62 07/10/17 01:16 86 116/77 (90) 81 07/10/17 01:15 86 116/77 07/10/17 01:01 79 130/68 (88) 07/10/17 00:46 81 136/68 (90) 93 07/10/17 00:01 36.6 78 20 124/84 (97) 92 Room Air 07/09/17 23:59 92 Room Air 07/09/17 23:18 36.4 78 18 157/77 92 Room Air 07/09/17 22:01 36.4 84 18 148/67 (94) 92 Room Air Laboratory Results: Last 24 Hours Test 07/09/17 21:12 07/09/17 22:27 07/10/17 00:27 07/10/17 03:09 Sodium Level 141 mmol/L Potassium Level 8.2 mmol/L Chloride Level 117 mmol/L Carbon Dioxide Level 19 mmol/L Anion Gap 5.0 mmol/L 17.0 mmol/L Blood Urea Nitrogen 32 mg/dl Creatinine 1.33 mg/dl Estimated GFR () 44.9 Estimated GFR (Non- 38.7 BUN/Creatinine Ratio 24.1 Random Glucose 145 mg/dl Calcium Level 9.8 mg/dl Phosphorus Level 4.5 mg/dl Magnesium Level 1.3 mg/dl Bedside Hemoglobin 10.5 g/dl 8.8 g/dl Bedside Hematocrit 31 % 26 % Bedside Blood Gas pH (LAB) 7.33 Bedside Blood Gas pCO2 (LAB) 32 mmHg Bedside Blood Gas pO2 (LAB) 70 mmHg Bedside Blood Gas HCO3 (LAB) 17 meq/L Bedside Blood Gas Total CO2 18 mEq/l Bedside Blood Gas Base Excess (LAB) -9.0 meq/L Bedside Blood Gas O2 Saturation 93.0 % Bedside Sodium 143 mEq/L 140 mEq/L Bedside Potassium 7.8 mEq/L 5.3 mEq/L Bedside Glucose 156 mg/dl Lactic Acid Level 1.1 mmol/L Total Creatine Kinase 114 U/L Bedside Chloride 107 mEq/L Bedside Total CO2 22 mEq/l Bedside Blood Urea Nitrogen 17 mg/dl Bedside Creatinine 0.8 mg/dl Bedside Glucose (other) 153 mg/dl Bedside Ionized Calcium (Tammi) 1.24 mmol/l Test 07/10/17 05:14 07/10/17 05:20 07/10/17 05:24 07/10/17 10:00 White Blood Count 16.64 K/uL Red Blood Count 3.06 M/uL Hemoglobin 10.2 g/dL Hematocrit 30.8 % Mean Corpuscular Volume 100.7 fL Mean Corpuscular Hemoglobin 33.3 pg Mean Corpuscular Hemoglobin Concent 33.1 g/dl Platelet Count 184 K/uL Mean Platelet Volume 9.2 fL Neutrophils (%) (Auto) 82.5 % Lymphocytes (%) (Auto) 9.9 % Monocytes (%) (Auto) 6.9 % Eosinophils (%) (Auto) 0.1 % Basophils (%) (Auto) 0.1 % Neutrophils # (Auto) 13.75 K/uL Lymphocytes # (Auto) 1.64 K/uL Monocytes # (Auto) 1.14 K/uL Eosinophils # (Auto) 0.02 K/uL Basophils # (Auto) 0.01 K/uL RDW Standard Deviation 48.1 fL RDW Coefficient of Variation 13.2 % Immature Granulocyte % (Auto) 0.5 % Immature Granulocyte # (Auto) 0.08 K/uL Sodium Level 140 mmol/L Potassium Level 5.5 mmol/L Chloride Level 109 mmol/L Carbon Dioxide Level 22 mmol/L Anion Gap 9.0 mmol/L Blood Urea Nitrogen 19 mg/dl Creatinine 0.94 mg/dl Est Creatinine Clear Calc Drug Dose 52.9 ml/min Estimated GFR () 68.3 Estimated GFR (Non- 58.9 BUN/Creatinine Ratio 20.5 Random Glucose 149 mg/dl Estimated Average Glucose 123 mg/dl Hemoglobin A1c 5.9 % Calcium Level 8.4 mg/dl Phosphorus Level 3.2 mg/dl Magnesium Level 1.5 mg/dl Hepatitis B Surface Antigen NEG Hepatitis B Surface Antibody NEG Urine Color YELLOW Urine Appearance CLOUDY Urine pH 5.0 Urine Specific [place] 1.009 Urine Protein 1+ Urine Glucose (UA) NEG Urine Ketones 1+ Urine Occult Blood 3+ Urine Nitrite NEG Urine Bilirubin NEG Urine Urobilinogen NEG Urine Leukocyte Esterase SMALL Urine WBC (Auto) 10-30 /hpf Urine RBC (Auto) >30 /hpf Urine Hyaline Casts (Auto) 1-5 /lpf Urine Epithelial Cells (Auto) 10-20 /lpf Urine Bacteria (Auto) 2+ Urine Renal Epithelial Cells 0-5 /lpf Bedside Glucose 148 mg/dl Influenza Type A (RT-PCR) Neg for Influ A Influenza Type B (RT-PCR) Neg for Influ B Test 07/10/17 11:41 07/10/17 11:54 07/10/17 16:20 Bedside Glucose 105 mg/dl 132 mg/dl Sodium Level 140 mmol/L Potassium Level 5.5 mmol/L Chloride Level 109 mmol/L Carbon Dioxide Level 27 mmol/L Anion Gap 4.0 mmol/L Blood Urea Nitrogen 19 mg/dl Creatinine 0.93 mg/dl Est Creatinine Clear Calc Drug Dose 53.5 ml/min Estimated GFR () 69.2 Estimated GFR (Non- 59.7 BUN/Creatinine Ratio 20.2 Random Glucose 113 mg/dl Calcium Level 8.5 mg/dl
--- NOTE | 2017-07-10 20:51 | Family Medicine Progress Note ---
Progress Note Date of Service Jul 10, 2017. Subjective Pt sleeping comfortably in bed in ICU, awakened from sleep on interview. Says she feels frustrated "it's been a long night". Denies pain anywhere. ROS See HPI for pertinent positives and negatives. Constitutional: No fever, No chills ENT: + unusual epistaxis Respiratory: No cough Cardiovascular: No chest pain Abdomen: No nausea, No vomiting, No diarrhea Female : No dysuria, No urinary frequency Neurologic: + memory loss Endo: + fatigue Medications Current Inpatient Medications Medications (Trade) Dose Ordered Sig/Ld Route Start Time Stop Time Status Last Admin Dose Admin Acetaminophen (Tylenol Tab) 650 mg Q4H PRN PO 07/09/17 21:15 08/08/17 21:14 Lorazepam (Ativan Inj) 0.5 mg Q4H PRN IV 07/09/17 21:15 08/08/17 21:14 Miscellaneous Information (Icu Protocol For Hyperglycemia) 1 ea PRN PRN N/A 07/09/17 21:15 07/11/17 21:14 Glucose (Glucose 40% Gel) 15-30 GRAMS 15 GRAMS... UD PRN PO 07/09/17 22:45 08/08/17 22:44 Glucose (Glucose Chew Tab) 4-8 Tablets 4 Tabl... UD PRN PO 07/09/17 22:45 08/08/17 22:44 Dextrose (Dextrose 50% 50ML Syringe) 25-50ML OF 50% DW IV FOR... UD PRN IV 07/09/17 22:45 08/08/17 22:44 Glucagon (Glucagon Inj) 1 mg UD PRN SQ 07/09/17 22:45 08/08/17 22:44 Furosemide (Lasix Tab) 60 mg DAILY PO 07/10/17 09:00 08/09/17 08:59 Multivitamins/ Minerals (Multivitamin W/ Minerals Tab) 1 tab DAILY PO 07/10/17 09:00 08/09/17 08:59 Diltiazem HCl (TIAzac CAP) 120 mg DAILY PO 07/10/17 09:00 08/09/17 08:59 07/10/17 15:38 120 MG Diltiazem HCl (TIAzac CAP) 180 mg DAILY PO 07/10/17 09:00 08/09/17 08:59 07/10/17 15:37 180 MG Levothyroxine Sodium 75 mcg/ Syringe 3.75 ml @ 2 mls/min DAILY@09 IV 07/10/17 09:00 08/09/17 08:59 07/10/17 09:48 2 MLS/MIN Heparin Sodium (Porcine) (Heparin Sq 5000 Unit/0.5ml) 5,000 unit Q8 SC 07/10/17 14:00 08/09/17 13:59 07/10/17 14:06 5,000 UNIT Insulin Aspart (novoLOG ASPART) SLIDING SCALE If C... ACHS SC 07/10/17 21:00 08/09/17 20:59 Amiodarone HCL/ Dextrose 200 ml @ 33.3 mls/hr Q6H1M IV 07/10/17 19:35 07/11/17 01:35 Amiodarone HCL/ Dextrose 200 ml @ 16.7 mls/hr [id number] IV 07/11/17 01:35 08/10/17 01:34 Objective Vital Signs Date Time Temp Pulse Resp B/P (MAP) Pulse Ox O2 Delivery O2 Flow Rate FiO2 07/10/17 19:31 37.4 82 106/65 (79) 07/10/17 19:00 85 105/60 07/10/17 18:45 106 89/69 07/10/17 18:30 102 106/67 07/10/17 18:15 101 88/64 07/10/17 18:00 37.4 108 20 88/67 (74) 97 Nasal Cannula 2.0 07/10/17 18:00 114 88/67 07/10/17 17:45 106 113/69 07/10/17 17:30 108 89/60 07/10/17 17:30 118 99/71 07/10/17 17:15 96 99/71 07/10/17 17:00 95 99 07/10/17 17:00 106 102/50 07/10/17 16:46 114 115/56 (75) 07/10/17 16:45 87 99 07/10/17 16:45 114 115/56 07/10/17 16:33 90 111/74 (86) 99 07/10/17 16:31 105 79/68 (72) 99 07/10/17 16:30 116 99 07/10/17 16:30 90 111/74 07/10/17 16:16 106 92/71 (78) 94 07/10/17 16:15 106 92/71 07/10/17 16:15 109 99 07/10/17 16:03 128 117/69 07/10/17 16:01 128 117/69 (85) 07/10/17 16:00 120 100 07/10/17 16:00 Nasal Cannula 2.0 07/10/17 16:00 37.2 123 20 102/50 (67) 97 Nasal Cannula 2.0 07/10/17 15:59 125 111/69 07/10/17 15:55 36.4 120 111/66 (81) 07/10/17 15:47 120 111/66 (81) 84 07/10/17 15:45 111 95 07/10/17 15:31 120 102/90 (94) 79 07/10/17 15:30 106 94 07/10/17 15:20 142 123/72 (89) 85 07/10/17 15:17 143 96/76 (83) 77 07/10/17 15:15 112 95 07/10/17 15:01 86 105/65 (78) 85 07/10/17 15:00 90 87 07/10/17 13:30 37.2 76 18 115/90 (98) 96 Nasal Cannula 2.0 07/10/17 11:30 37.2 88 18 129/65 (86) 96 Nasal Cannula 2.0 07/10/17 11:20 Nasal Cannula 2.0 07/10/17 11:00 95 98 07/10/17 10:46 78 120/57 (78) 07/10/17 10:31 83 116/64 (81) 07/10/17 10:16 90 142/66 (91) 95 07/10/17 10:01 88 133/69 (90) 94 07/10/17 10:00 90 95 07/10/17 10:00 37.3 82 18 142/66 (91) 96 Nasal Cannula 2.0 07/10/17 09:51 84 133/68 (89) 89 07/10/17 09:01 76 109/67 (81) 88 07/10/17 09:00 87 94 07/10/17 08:46 87 113/69 (84) 07/10/17 08:32 98 118/90 (99) 97 07/10/17 08:16 95 101/80 (87) 95 07/10/17 08:01 85 114/70 (85) 90 07/10/17 08:00 86 95 07/10/17 08:00 37.3 90 18 103/56 (72) 94 Nasal Cannula 2.0 07/10/17 08:00 Nasal Cannula 2.0 07/10/17 08:00 Nasal Cannula 07/10/17 07:46 93 111/64 (80) 82 07/10/17 07:31 86 103/56 (72) 07/10/17 07:16 83 101/56 (71) 07/10/17 07:01 83 102/59 (73) 92 07/10/17 07:00 84 94 07/10/17 06:46 87 108/63 (78) 07/10/17 06:31 94 18 104/58 (73) 93 Nasal Cannula 2.0 07/10/17 06:16 94 107/57 (74) 87 07/10/17 05:46 97 130/71 (90) 84 07/10/17 05:31 98 120/58 (78) 86 07/10/17 05:01 99 107/71 (83) 89 07/10/17 04:46 94 119/72 (88) 90 07/10/17 04:31 96 112/67 (82) 92 07/10/17 04:16 106 121/88 (99) 83 07/10/17 04:01 36.9 94 18 122/68 (86) 89 Room Air 07/10/17 04:00 92 Room Air 07/10/17 03:46 96 103/65 (78) 90 07/10/17 03:16 96 110/64 (79) 93 07/10/17 03:14 103 104/54 (71) 92 07/10/17 03:13 99 104/54 (71) 94 07/10/17 03:01 104 129/67 (87) 94 07/10/17 03:00 100 129/67 07/10/17 02:46 101 118/61 (80) 90 07/10/17 02:45 99 118/61 07/10/17 02:32 105 119/55 (76) 92 2/28/18 02:30 105 119/55 07/10/17 02:17 114 168/90 (116) 93 07/10/17 02:15 103 168/90 07/10/17 02:01 92 18 120/66 (84) 91 Room Air 07/10/17 01:46 89 127/62 (83) 93 07/10/17 01:45 87 120/66 07/10/17 01:33 83 123/62 (82) 96 07/10/17 01:30 84 123/62 07/10/17 01:16 86 116/77 (90) 81 07/10/17 01:15 86 116/77 07/10/17 01:01 79 130/68 (88) 07/10/17 00:46 81 136/68 (90) 93 07/10/17 00:01 36.6 78 20 124/84 (97) 92 Room Air 07/09/17 23:59 92 Room Air 07/09/17 23:18 36.4 78 18 157/77 92 Room Air 07/09/17 22:01 36.4 84 18 148/67 (94) 92 Room Air Physical Exam Notes: GENERAL: Awake, AOx2, in no distress. Eason draining yellow clear urine HENT: Normocephalic, atraumatic. EYES: Normal conjunctiva. Sclera non-icteric. NECK: Supple. Dialysis port in place RESPIRATORY: Clear to auscultation. CARDIAC: Regular rate, normal rhythm. Extremities warm and well perfused. Pulses equal. ABDOMEN: Soft, non-distended. No tenderness to palpation. No rebound or guarding. No masses. NEURO: No motor deficits noted. SKIN: No rash or jaundice noted. Assessment and Plan Patient is a 77 year old female with a past medical history of Right Sided CVA with hemiparesis in 2016, HTN, HLD, DM, Stage 2 CKD, and Hypothyroidism s/p treatment of thyroid cancer that presents as a Direct Admit from [facility] with Hyperkalemia of 8.2 Acute Hyperkalemia - Most likely 2/2 medication use (Aldactone, Benazepril, and K+) --> Currently holding - Administered at outside hospital: Sodium Bicarb 50ml, Calcium Cl 1gm, Dextrose 50% 50ml, Insulin Regular 2.5 units, Albuterol 1 amp, and 500ml of NS - Repeat bmp shows K at 5.5 today. - received dialysis, per Nephro management CKD Stage 2 - last cr .9, resolved. Hypomagnesemia - Magnesium of 1.3 --> 2gm Magnesium IV given. Trending up. - Continue repletion per nephro mgmt Urinary Incontinence 2/2 CVA - Eason Catheter - Urinalysis shows small leuks, no nitrites - Urine Culture pending - Monitor I/O [id number] - ISS with BSG Checks AC/HS - Hold home Metformin and Glipizide Hypothyroidism - Synthroid 75 mcg IV QAM Hypertension - Hold home Benazepril, Aldactone, and Cardizem as above CVD - Holding home Aspirin - Holding home Tramadol GERD - Pepcid IV DVT: Heparin 5000u sc Code Status: DNR Dispo: ICU Resident Physician Supervision Note: I interviewed and examined the patient. Discussed with the resident and agree with findings and plan as documented in the note. I also discussed care with nephrology and agricultural engineering teacher team. Will follow while in ICU to assist in the transitioning of care when condition permits. Documented By: Andrew Quesada Continued [facility] stay due to: multiple IV medications needed Resident Tracking Resident Involvement: Resident Care Provided Care Provided: Adult Hospital Medicine
[2017-07-10] MEDS ORDERED: SODIUM CHLORIDE 0.9% 500ML 500 ML IV ONE (23:00)
[2017-07-10] MEDS ORDERED: HEPARIN IV LOW DOSE NO BOLUS STA (23:39)
[2017-07-11] VITALS (19 sets, daily range): BP systolic 87–122; BP diastolic 42–67; PULSE 68–103; TEMP 36.5–37.2; O2SAT 93–99
[2017-07-11 00:38] LABS: BASO % 0.2 %; BASO ABS # 0.03 K/uL (0-0.2); EOS % 3.7 %; EOS ABS # 0.53 K/uL (0-0.5); HEMATOCRIT 28.5 % (37-47); HEMOGLOBIN 9.5 g/dL (12.0-16.0); IG# 0.03 K/uL (0.00-0.02); LYMPH % 15.7 %; LYMPH ABS # 2.27 K/uL (1.2-3.4); MEAN CELL VOLUME 99.7 fL (80-100); MEAN CORPUSCULAR HEMOGLOBIN 33.2 pg (25-34); MEAN PLATELET VOLUME 9.2 fL (7.4-10.4); MONO % 7.5 %; MONO ABS # 1.09 K/uL (0.11-0.59); NEUT % 72.7 %; NEUT ABS # 10.54 K/uL (1.4-6.5); PLATELET COUNT 153 K/uL (130-400); RED CELL DISTRIBUTION WIDTH CV 13.3 % (11.5-14.5); RED CELL DISTRIBUTION WIDTH SD 47.9 fL (36.4-46.3); WHITE BLOOD COUNT 14.49 K/uL (4.8-10.8)
[2017-07-11 00:42] LABS: MEAN CORPUSCULAR HGB CONC 33.3 g/dl (32-36)
[2017-07-11 00:48] LABS: INR 1.2 (0.9-1.1); PTT PATIENT 27.5 SECONDS (21.0-31.0)
[2017-07-11] MEDS: HEPARIN 25,000 UNIT/500ML D5W 500 ML IV PRN (00:56)
[2017-07-11] MEDS: AMIODARONE / D5W 200 ML IV SCH ×2 (03:18→16:06)
[2017-07-11 05:35] LABS: BASO % 0.2 %; BASO ABS # 0.03 K/uL (0-0.2); EOS % 4.1 %; EOS ABS # 0.57 K/uL (0-0.5); HEMATOCRIT 28.4 % (37-47); HEMOGLOBIN 9.5 g/dL (12.0-16.0); IG# 0.02 K/uL (0.00-0.02); LYMPH % 16.1 %; LYMPH ABS # 2.21 K/uL (1.2-3.4); MEAN CELL VOLUME 99.6 fL (80-100); MEAN CORPUSCULAR HEMOGLOBIN 33.3 pg (25-34); MEAN CORPUSCULAR HGB CONC 33.5 g/dl (32-36); MEAN PLATELET VOLUME 9.1 fL (7.4-10.4); MONO % 8.5 %; MONO ABS # 1.17 K/uL (0.11-0.59); NEUT ABS # 9.75 K/uL (1.4-6.5); PLATELET COUNT 153 K/uL (130-400); RED CELL DISTRIBUTION WIDTH CV 13.4 % (11.5-14.5); RED CELL DISTRIBUTION WIDTH SD 48.5 fL (36.4-46.3); WHITE BLOOD COUNT 13.75 K/uL (4.8-10.8)
[2017-07-11 06:07] LABS: CALCIUM 7.4 mg/dl (8.5-10.1); CREATININE 1.03 mg/dl (0.60-1.20)
--- NOTE | 2017-07-11 06:53 | Nephrology Progress Note ---
Nephrology Progress Note Date of Service: Jul 11, 2017. Subjective 77 yo female who presented with hyperkalemia thought to be medication induced and has required two dialysis treatments. pt also went into afib yesterday and now on amio and heparin drips. pt awake and more alert. urine output decreased overnight. Objective Date Time Temp Pulse Resp B/P (MAP) Pulse Ox O2 Delivery O2 Flow Rate FiO2 07/11/17 06:31 85 101/55 (70) 95 Nasal Cannula 2.0 07/11/17 06:01 94 93/56 (68) 93 Nasal Cannula 2.0 07/11/17 05:57 87 122/42 (68) 97 Nasal Cannula 2.0 07/11/17 05:31 93 94/48 (63) 96 Nasal Cannula 2.0 07/11/17 05:01 95 104/47 (66) 95 Nasal Cannula 2.0 07/11/17 04:32 101 100/57 (71) 97 Nasal Cannula 2.0 07/11/17 04:01 37.1 80 18 106/52 (70) 95 Nasal Cannula 2.0 07/11/17 04:00 Room Air 07/11/17 03:31 94 97/50 (66) 93 Nasal Cannula 2.0 07/11/17 03:01 94 97/58 (71) 94 Nasal Cannula 2.0 07/11/17 02:31 93 91/54 (66) 99 Nasal Cannula 2.0 07/11/17 02:01 92 93/65 (74) 96 Nasal Cannula 2.0 07/11/17 01:32 93 100/48 (65) 96 Nasal Cannula 2.0 07/11/17 01:01 87 113/50 (71) 97 Nasal Cannula 2.0 07/11/17 00:31 94 20 93/55 (68) 94 Nasal Cannula 2.0 07/11/17 00:01 37.2 89 98/46 (63) 96 Nasal Cannula 2.0 07/11/17 00:01 Room Air 07/10/17 23:31 83 94/45 (61) 97 Nasal Cannula 2.0 07/10/17 23:17 114 95/50 (65) 95 Nasal Cannula 2.0 07/10/17 23:01 83 85/50 (62) 99 Nasal Cannula 2.0 07/10/17 22:46 90 88/43 (58) 96 Nasal Cannula 2.0 07/10/17 22:31 85 110/54 (72) 96 Nasal Cannula 2.0 07/10/17 22:16 89 80/38 (52) 91 Nasal Cannula 2.0 07/10/17 22:01 80 18 95/50 (65) 95 Nasal Cannula 2.0 07/10/17 21:46 70 94/51 (65) 97 Nasal Cannula 2.0 07/10/17 21:31 74 88/43 (58) 96 Nasal Cannula 2.0 07/10/17 21:16 85 96/43 (60) 97 Nasal Cannula 2.0 07/10/17 21:06 81 95/47 (63) 97 Nasal Cannula 2.0 07/10/17 20:59 76 21 98/45 (62) 91 Nasal Cannula 2.0 07/10/17 20:47 71 53/47 (49) 96 Nasal Cannula 2.0 07/10/17 20:31 87 76/46 (56) 96 Nasal Cannula 2.0 07/10/17 20:16 86 110/69 (83) 96 Nasal Cannula 2.0 07/10/17 20:05 74 96/52 (67) 97 Nasal Cannula 2.0 07/10/17 20:00 36.9 84 22 89/55 (66) 95 Nasal Cannula 2.0 07/10/17 20:00 Room Air 07/10/17 19:31 82 106/65 (79) 98 Nasal Cannula 2.0 07/10/17 19:31 37.4 82 106/65 (79) 07/10/17 19:16 108 118/69 (85) 95 Nasal Cannula 2.0 07/10/17 19:01 85 18 105/60 (75) 98 Nasal Cannula 2.0 07/10/17 19:00 85 105/60 07/10/17 18:45 106 89/69 07/10/17 18:30 102 106/67 07/10/17 18:15 101 88/64 07/10/17 18:00 37.4 108 20 88/67 (74) 97 Nasal Cannula 2.0 07/10/17 18:00 114 88/67 07/10/17 17:45 106 113/69 07/10/17 17:30 108 89/60 07/10/17 17:30 118 99/71 18 17:15 96 99/71 18 17:00 95 99 18 17:00 106 102/50 18 16:46 114 115/56 (75) 07/10/17 16:45 87 99 18 16:45 114 115/56 18 16:33 90 111/74 (86) 99 18 16:31 105 79/68 (72) 99 07/10/17 16:30 116 99 18 16:30 90 111/74 18 16:16 106 92/71 (78) 94 07/10/17 16:15 106 92/71 07/10/17 16:15 109 99 07/10/17 16:03 128 117/69 07/10/17 16:01 128 117/69 (85) 07/10/17 16:00 120 100 07/10/17 16:00 Nasal Cannula 2.0 07/10/17 16:00 37.2 123 20 102/50 (67) 97 Nasal Cannula 2.0 07/10/17 15:59 125 111/69 07/10/17 15:55 36.4 120 111/66 (81) 07/10/17 15:47 120 111/66 (81) 84 07/10/17 15:45 111 95 07/10/17 15:31 120 102/90 (94) 79 07/10/17 15:30 106 94 07/10/17 15:20 142 123/72 (89) 85 07/10/17 15:17 143 96/76 (83) 77 07/10/17 15:15 112 95 07/10/17 15:01 86 105/65 (78) 85 07/10/17 15:00 90 87 07/10/17 13:30 37.2 76 18 115/90 (98) 96 Nasal Cannula 2.0 07/10/17 11:30 37.2 88 18 129/65 (86) 96 Nasal Cannula 2.0 07/10/17 11:20 Nasal Cannula 2.0 07/10/17 11:00 95 98 07/10/17 10:46 78 120/57 (78) 07/10/17 10:31 83 116/64 (81) 07/10/17 10:16 90 142/66 (91) 95 07/10/17 10:01 88 133/69 (90) 94 07/10/17 10:00 90 95 07/10/17 10:00 37.3 82 18 142/66 (91) 96 Nasal Cannula 2.0 07/10/17 09:51 84 133/68 (89) 89 07/10/17 09:01 76 109/67 (81) 88 07/10/17 09:00 87 94 07/10/17 08:46 87 113/69 (84) 07/10/17 08:32 98 118/90 (99) 97 07/10/17 08:16 95 101/80 (87) 95 07/10/17 08:01 85 114/70 (85) 90 07/10/17 08:00 86 95 07/10/17 08:00 37.3 90 18 103/56 (72) 94 Nasal Cannula 2.0 07/10/17 08:00 Nasal Cannula 2.0 07/10/17 08:00 Nasal Cannula 07/10/17 07:46 93 111/64 (80) 82 07/10/17 07:31 86 103/56 (72) 07/10/17 07:16 83 101/56 (71) 07/10/17 07:01 83 102/59 (73) 92 07/10/17 07:00 84 94 Physical Exam: [id number] Eyes-no scleral icterus ENT-mmm Neck-supple Lungs-clear Heart-irregular Abdomen-bs+ s/nt/nd Extremities-no c/c/e Neuro-right sided hemiparesis Current Inpatient Medications Medications (Trade) Dose Ordered Sig/Ld Route Start Time Stop Time Status Last Admin Dose Admin Acetaminophen (Tylenol Tab) 650 mg Q4H PRN PO 07/09/17 21:15 08/08/17 21:14 Lorazepam (Ativan Inj) 0.5 mg Q4H PRN IV 07/09/17 21:15 08/08/17 21:14 Miscellaneous Information (Icu Protocol For Hyperglycemia) 1 ea PRN PRN N/A 07/09/17 21:15 07/11/17 21:14 Glucose (Glucose 40% Gel) 15-30 GRAMS 15 GRAMS... UD PRN PO 07/09/17 22:45 08/08/17 22:44 Glucose (Glucose Chew Tab) 4-8 Tablets 4 Tabl... UD PRN PO 07/09/17 22:45 08/08/17 22:44 Dextrose (Dextrose 50% 50ML Syringe) 25-50ML OF 50% DW IV FOR... UD PRN IV 07/09/17 22:45 08/08/17 22:44 Glucagon (Glucagon Inj) 1 mg UD PRN SQ 07/09/17 22:45 08/08/17 22:44 Furosemide (Lasix Tab) 60 mg DAILY PO 07/10/17 09:00 08/09/17 08:59 Multivitamins/ Minerals (Multivitamin W/ Minerals Tab) 1 tab DAILY PO 07/10/17 09:00 08/09/17 08:59 Diltiazem HCl (TIAzac CAP) 120 mg DAILY PO 07/10/17 09:00 08/09/17 08:59 07/10/17 15:38 120 MG Diltiazem HCl (TIAzac CAP) 180 mg DAILY PO 07/10/17 09:00 08/09/17 08:59 07/10/17 15:37 180 MG Levothyroxine Sodium 75 mcg/ Syringe 3.75 ml @ 2 mls/min DAILY@09 IV 07/10/17 09:00 08/09/17 08:59 07/10/17 09:48 2 MLS/MIN Insulin Aspart (novoLOG ASPART) SLIDING SCALE If C... ACHS SC 07/10/17 21:00 08/09/17 20:59 Amiodarone HCL/ Dextrose 200 ml @ 16.7 mls/hr [id number] IV 07/11/17 01:35 08/10/17 01:34 07/11/17 03:18 16.7 MLS/HR Heparin Sodium/ Dextrose 500 ml @ 16 mls/hr Q24H PRN IV 07/10/17 23:45 08/09/17 23:44 07/11/17 00:56 16 MLS/HR Last 24 Hours Test 07/10/17 10:00 07/10/17 11:41 07/10/17 11:54 07/10/17 16:20 Influenza Type A (RT-PCR) Neg for Influ A Influenza Type B (RT-PCR) Neg for Influ B Bedside Glucose 105 mg/dl 132 mg/dl Sodium Level 140 mmol/L Potassium Level 5.5 mmol/L Chloride Level 109 mmol/L Carbon Dioxide Level 27 mmol/L Anion Gap 4.0 mmol/L Blood Urea Nitrogen 19 mg/dl Creatinine 0.93 mg/dl Est Creatinine Clear Calc Drug Dose 53.5 ml/min Estimated GFR () 69.2 Estimated GFR (Non- 59.7 BUN/Creatinine Ratio 20.2 Random Glucose 113 mg/dl Calcium Level 8.5 mg/dl Test 07/10/17 21:35 07/11/17 00:13 07/11/17 05:07 Bedside Glucose 166 mg/dl White Blood Count 14.49 K/uL 13.75 K/uL Red Blood Count 2.86 M/uL 2.85 M/uL Hemoglobin 9.5 g/dL 9.5 g/dL Hematocrit 28.5 % 28.4 % Mean Corpuscular Volume 99.7 fL 99.6 fL Mean Corpuscular Hemoglobin 33.2 pg 33.3 pg Mean Corpuscular Hemoglobin Concent 33.3 g/dl 33.5 g/dl Platelet Count 153 K/uL 153 K/uL Mean Platelet Volume 9.2 fL 9.1 fL Neutrophils (%) (Auto) 72.7 % 71.0 % Lymphocytes (%) (Auto) 15.7 % 16.1 % Monocytes (%) (Auto) 7.5 % 8.5 % Eosinophils (%) (Auto) 3.7 % 4.1 % Basophils (%) (Auto) 0.2 % 0.2 % Neutrophils # (Auto) 10.54 K/uL 9.75 K/uL Lymphocytes # (Auto) 2.27 K/uL 2.21 K/uL Monocytes # (Auto) 1.09 K/uL 1.17 K/uL Eosinophils # (Auto) 0.53 K/uL 0.57 K/uL Basophils # (Auto) 0.03 K/uL 0.03 K/uL RDW Standard Deviation 47.9 fL 48.5 fL RDW Coefficient of Variation 13.3 % 13.4 % Immature Granulocyte % (Auto) 0.2 % 0.1 % Immature Granulocyte # (Auto) 0.03 K/uL 0.02 K/uL Prothrombin Time 12.1 SECONDS Prothromb Time International Ratio 1.2 Activated Partial Thromboplast Time 27.5 SECONDS Partial Thromboplastin Ratio 1.1 Sodium Level 138 mmol/L Potassium Level 4.0 mmol/L Chloride Level 104 mmol/L Carbon Dioxide Level 27 mmol/L Anion Gap 7.0 mmol/L Blood Urea Nitrogen 11 mg/dl Creatinine 1.03 mg/dl Est Creatinine Clear Calc Drug Dose 48.3 ml/min Estimated GFR () 61.2 Estimated GFR (Non- 52.8 BUN/Creatinine Ratio 10.2 Random Glucose 139 mg/dl Calcium Level 7.4 mg/dl Phosphorus Level 3.0 mg/dl Magnesium Level 1.8 mg/dl Assessment & Plan hyperkalemia-thought to be medication induced requiring two dialysis treatments. k is now 4. urination has trended down. in my clinical opinion, appears dry and may have had an element of atn given junctional bradycardia on admission and then afib yesterday. would leave dialysis catheter in for another 24 hours and re-evaluate tomorrow. would stop the lasix and start normal saline.
[2017-07-11 07:30] LABS: PTT PATIENT 30.1 SECONDS (21.0-31.0)
[2017-07-11] MEDS: SODIUM CHLORIDE 0.9% 1000ML 1,000 ML IV SCH ×2 (07:44→17:18)
[2017-07-11] MEDS: CEROVITE ADV FORMULA TAB PO SCH (07:44)
[2017-07-11] MEDS: DILTIAZEM HCL 120 MG EXT REL CAP PO SCH (07:45)
[2017-07-11] MEDS: DILTIAZEM HCL (TIAzac) 180 MG CAPCR PO SCH (07:45)
[2017-07-11] MEDS: INSULIN ASPART 100 UNITS/ML 3 ML PEN SC SCH ×4 (07:47→20:38)
[2017-07-11] MEDS ORDERED: NURSING VERBAL MED ORDER ONE (08:00)
[2017-07-11] MEDS ORDERED: HEPARIN IV BOLUS 4,500 UNIT in SYRINGE 0 ML IV ONE (08:45)
[2017-07-11] MEDS: LEVOTHYROXINE SODIUM INJ 75 MCG in SYRINGE 0 ML IV SCH (08:52)
--- NOTE | 2017-07-11 08:56 | DIAGNOSTIC IMAGING REPORT ---
(RENAL)RETROPERITON COMP HISTORY: 77 years-old Female anthony acute kidney injury COMPARISON: Renal ultrasound 11/25/2015 TECHNIQUE: Multiple real-time sonographic images of the kidneys and urinary bladder were obtained assessing grayscale appearance FINDINGS: Study is a portable exam. Study is limited secondary to patient body habitus. The right kidney measures 12.3 cm in length and demonstrates no hydronephrosis, renal calculi or suspicious focal renal mass lesions. 1.1 cm cyst of the interpolar right kidney is noted. The left kidney measures 9.7 cm in length and appears unremarkable, however subvisualized. No left-sided renal calculi, hydronephrosis or suspicious mass lesions identified. Eason catheter is noted within a collapsed urinary bladder lumen. IMPRESSION: 1. Limited study as above without renal calculi or hydronephrosis. 2. Eason catheter noted within a collapsed urinary bladder lumen. The above report was generated using voice recognition software. It may contain grammatical, syntax or spelling errors. Electronically signed by: Emigdio Pisano M.D. 07/11/2017 8:55 AM Dictated Date/Time: 07/11/2017 8:52 AM
--- NOTE | 2017-07-11 09:11 | Critical Care Progress Note ---
Critical Care Progress Note Date of Service Jul 11, 2017. Attending Dr. Simpson Subjective Pt had an uneventful night. Pt is noted to continue in A. FIb; however, her vitals remain stable. Pt was dialyzed overnight and Potassium now 4.0. UOP decreased overnight, pt did receive (1) 500 mL NSS bolus overnight. The patient denies fever, dizziness, headache, change in vision, sore throat, chest pain, palpitations, awareness of tachyarrhythmias, leg swelling, shortness of breath, cough, nausea, vomiting, bloody stools, diarrhea, constipation, abdominal pain, other changes in urine or bowel habits. Objective GENERAL : No acute distress. Pleasant EYES: No icterus, gaze conjugate NOSE: No evidence of epistaxis MOUTH: No lesions or candidiasis NECK: Supple LUNGS: CTA B/L, no wheezes, rales or rhonchi HEART: Regular, rate controlled ABDOMEN: Soft, NT, ND, BS Present EXTREMITIES: No LE edema, pedal pulses intact. Flaccid right side. NEURO: A&OX3 Assessment & Plan (1) Hyperkalemia (2) HERMINIO (acute kidney injury) (3) Acquired hypothyroidism (4) Benign essential hypertension (5) Diabetes mellitus type 2 (6) Obesity Renal * Electrolyte imbalance with hyperkalemia * Hyperkalemia thought to be medication induced * HD last night, K now 4.0 * Nephro will re-evaluate in AM as to removal of HD Temp Catheter * Dr. Gaona following * BUN 11, creatinine 1.03 Neuro * Alert and oriented, previously [facility] ICU Positive. 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 Fib on 07/10 * Transition Amiodarone infusion to Amiodarone PO 200mg BID * Continue diltiazem * Rate controlled Pulmonary * Pt on supplental O2 with adequate saturations * Last Chest x-ray unremarkable ID * MRSA screening negative * urine culture pending * WBC 13.75, trending down * Afebrile * No indication for Abx Endocrine * Diabetes mellitus type 2 * Hemoglobin A1c 5.9 * Discontinue and suggest no sulfonylureas in the future * BSG as per protocol * holding outpatient metformin and glipizide * Continue levothyroxine for hypothyroidism Heme * H&H: 9.5/28.4, Stable * Follow clinically Nutrition * Diet as tolerated GI * Continue Famotidine IV access * Difficult stick * 2 peripheral IVs currently in place DVT prophylaxis * Heparin infusion start secondary to A. Fib Stable for downgrade to Telemetry. Critical Care Time: 0 Minutes; Level 3 Inpatient Billing. This time is exclusive of all separately billable procedures. Thank you for involving us in the care of this patient. Please refer to Dr. Henri Simpson's addendum for further recommendations. I have personally evaluated and examined this patient. I agree with assessment and plan of Patrizia Briceño PA-C. I discussed the case with the hospitalist. Patient's has bled score is 3-4 depending on what her renal function may return to. That does place her at high risk for bleeding events. At this point we are continuing the heparin infusion and then I am deferring decision for anticoagulation to the hospitalist service. Her rhythm continues to be atrial fibrillation however she is certainly rate controlled at this time. She is stable for downgrade out of the ICU to telemetry status. Discussed the treatment plan of nephrology, we will continue the dialysis catheter for 24 hours in hopes that her renal function improves that she no longer needs dialysis. Consults & Procedures Consultants: Nephrology -Dr. Garner Recreation Director -Dr. Simpson Procedures: Temporary dialysis catheter 07/09/2017 Hemodialysis Data Medications: Current Inpatient Medications Medications (Trade) Dose Ordered Sig/Ld Route Start Time Stop Time Status Last Admin Dose Admin Acetaminophen (Tylenol Tab) 650 mg Q4H PRN PO 07/09/17 21:15 08/08/17 21:14 Lorazepam (Ativan Inj) 0.5 mg Q4H PRN IV 07/09/17 21:15 08/08/17 21:14 Miscellaneous Information (Icu Protocol For Hyperglycemia) 1 ea PRN PRN N/A 07/09/17 21:15 07/11/17 21:14 Glucose (Glucose 40% Gel) 15-30 GRAMS 15 GRAMS... UD PRN PO 07/09/17 22:45 08/08/17 22:44 Glucose (Glucose Chew Tab) 4-8 Tablets 4 Tabl... UD PRN PO 07/09/17 22:45 08/08/17 22:44 Dextrose (Dextrose 50% 50ML Syringe) 25-50ML OF 50% DW IV FOR... UD PRN IV 07/09/17 22:45 08/08/17 22:44 Glucagon (Glucagon Inj) 1 mg UD PRN SQ 07/09/17 22:45 08/08/17 22:44 Multivitamins/ Minerals (Multivitamin W/ Minerals Tab) 1 tab DAILY PO 07/10/17 09:00 08/09/17 08:59 07/11/17 07:44 1 TAB Diltiazem HCl (TIAzac CAP) 120 mg DAILY PO 07/10/17 09:00 08/09/17 08:59 07/11/17 07:45 120 MG Diltiazem HCl (TIAzac CAP) 180 mg DAILY PO 07/10/17 09:00 08/09/17 08:59 07/11/17 07:45 180 MG Levothyroxine Sodium 75 mcg/ Syringe 3.75 ml @ 2 mls/min DAILY@09 IV 07/10/17 09:00 08/09/17 08:59 07/10/17 09:48 2 MLS/MIN Insulin Aspart (novoLOG ASPART) SLIDING SCALE If C... ACHS SC 07/10/17 21:00 08/09/17 20:59 07/11/17 07:47 3 UNITS Amiodarone HCL/ Dextrose 200 ml @ 16.7 mls/hr [id number] IV 07/11/17 01:35 08/10/17 01:34 07/11/17 03:18 16.7 MLS/HR Heparin Sodium/ Dextrose 500 ml @ 19 mls/hr Q24H PRN IV 07/10/17 23:45 08/09/17 23:44 07/11/17 00:56 16 MLS/HR Sodium Chloride 1,000 ml @ 100 mls/hr Q10H IV 07/11/17 07:00 08/10/17 06:59 07/11/17 07:44 100 MLS/HR Heparin Sodium (Porcine) 4500 unit/Syringe 4.5 ml @ 10 mls/min NOW ONCE IV 07/11/17 08:45 07/11/17 08:46 Vital Signs: Date Time Temp Pulse Resp B/P (MAP) Pulse Ox O2 Delivery O2 Flow Rate FiO2 07/11/17 06:31 85 101/55 (70) 95 Nasal Cannula 2.0 07/11/17 06:01 94 93/56 (68) 93 Nasal Cannula 2.0 07/11/17 05:57 87 122/42 (68) 97 Nasal Cannula 2.0 07/11/17 05:31 93 94/48 (63) 96 Nasal Cannula 2.0 07/11/17 05:01 95 104/47 (66) 95 Nasal Cannula 2.0 07/11/17 04:32 101 100/57 (71) 97 Nasal Cannula 2.0 07/11/17 04:01 37.1 80 18 106/52 (70) 95 Nasal Cannula 2.0 07/11/17 04:00 Room Air 07/11/17 03:31 94 97/50 (66) 93 Nasal Cannula 2.0 07/11/17 03:01 94 97/58 (71) 94 Nasal Cannula 2.0 07/11/17 02:31 93 91/54 (66) 99 Nasal Cannula 2.0 07/11/17 02:01 92 93/65 (74) 96 Nasal Cannula 2.0 07/11/17 01:32 93 100/48 (65) 96 Nasal Cannula 2.0 07/11/17 01:01 87 113/50 (71) 97 Nasal Cannula 2.0 07/11/17 00:31 94 20 93/55 (68) 94 Nasal Cannula 2.0 07/11/17 00:01 37.2 89 98/46 (63) 96 Nasal Cannula 2.0 07/11/17 00:01 Room Air 07/10/17 23:31 83 94/45 (61) 97 Nasal Cannula 2.0 07/10/17 23:17 114 95/50 (65) 95 Nasal Cannula 2.0 07/10/17 23:01 83 85/50 (62) 99 Nasal Cannula 2.0 07/10/17 22:46 90 88/43 (58) 96 Nasal Cannula 2.0 07/10/17 22:31 85 110/54 (72) 96 Nasal Cannula 2.0 07/10/17 22:16 89 80/38 (52) 91 Nasal Cannula 2.0 07/10/17 22:01 80 18 95/50 (65) 95 Nasal Cannula 2.0 07/10/17 21:46 70 94/51 (65) 97 Nasal Cannula 2.0 07/10/17 21:31 74 88/43 (58) 96 Nasal Cannula 2.0 07/10/17 21:16 85 96/43 (60) 97 Nasal Cannula 2.0 07/10/17 21:06 81 95/47 (63) 97 Nasal Cannula 2.0 07/10/17 20:59 76 21 98/45 (62) 91 Nasal Cannula 2.0 07/10/17 20:47 71 53/47 (49) 96 Nasal Cannula 2.0 07/10/17 20:31 87 76/46 (56) 96 Nasal Cannula 2.0 07/10/17 20:16 86 110/69 (83) 96 Nasal Cannula 2.0 07/10/17 20:05 74 96/52 (67) 97 Nasal Cannula 2.0 07/10/17 20:00 36.9 84 22 89/55 (66) 95 Nasal Cannula 2.0 07/10/17 20:00 Room Air 07/10/17 19:31 82 106/65 (79) 98 Nasal Cannula 2.0 07/10/17 19:31 37.4 82 106/65 (79) 07/10/17 19:16 108 118/69 (85) 95 Nasal Cannula 2.0 07/10/17 19:01 85 18 105/60 (75) 98 Nasal Cannula 2.0 07/10/17 19:00 85 105/60 07/10/17 18:45 106 89/69 07/10/17 18:30 102 106/67 07/10/17 18:15 101 88/64 07/10/17 18:00 37.4 108 20 88/67 (74) 97 Nasal Cannula 2.0 07/10/17 18:00 114 88/67 07/10/17 17:45 106 113/69 07/10/17 17:30 108 89/60 07/10/17 17:30 118 99/71 07/10/17 17:15 96 99/71 07/10/17 17:00 95 99 07/10/17 17:00 106 102/50 07/10/17 16:46 114 115/56 (75) 07/10/17 16:45 87 99 07/10/17 16:45 114 115/56 07/10/17 16:33 90 111/74 (86) 99 18 16:31 105 79/68 (72) 99 18 16:30 116 99 18 16:30 90 111/74 18 16:16 106 92/71 (78) 94 18 16:15 106 92/71 18 16:15 109 99 18 16:03 128 117/69 18 16:01 128 117/69 (85) 07/10/17 16:00 120 100 07/10/17 16:00 Nasal Cannula 2.0 07/10/17 16:00 37.2 123 20 102/50 (67) 97 Nasal Cannula 2.0 07/10/17 15:59 125 111/69 07/10/17 15:55 36.4 120 111/66 (81) 07/10/17 15:47 120 111/66 (81) 84 07/10/17 15:45 111 95 07/10/17 15:31 120 102/90 (94) 79 07/10/17 15:30 106 94 07/10/17 15:20 142 123/72 (89) 85 07/10/17 15:17 143 96/76 (83) 77 07/10/17 15:15 112 95 07/10/17 15:01 86 105/65 (78) 85 07/10/17 15:00 90 87 07/10/17 13:30 37.2 76 18 115/90 (98) 96 Nasal Cannula 2.0 07/10/17 11:30 37.2 88 18 129/65 (86) 96 Nasal Cannula 2.0 07/10/17 11:20 Nasal Cannula 2.0 07/10/17 11:00 95 98 07/10/17 10:46 78 120/57 (78) 07/10/17 10:31 83 116/64 (81) 07/10/17 10:16 90 142/66 (91) 95 07/10/17 10:01 88 133/69 (90) 94 07/10/17 10:00 90 95 07/10/17 10:00 37.3 82 18 142/66 (91) 96 Nasal Cannula 2.0 07/10/17 09:51 84 133/68 (89) 89 07/10/17 09:01 76 109/67 (81) 88 07/10/17 09:00 87 94 07/10/17 08:46 87 113/69 (84) Laboratory Results: Last 24 Hours Test 07/10/17 10:00 07/10/17 11:41 07/10/17 11:54 07/10/17 16:20 Influenza Type A (RT-PCR) Neg for Influ A Influenza Type B (RT-PCR) Neg for Influ B Bedside Glucose 105 mg/dl 132 mg/dl Sodium Level 140 mmol/L Potassium Level 5.5 mmol/L Chloride Level 109 mmol/L Carbon Dioxide Level 27 mmol/L Anion Gap 4.0 mmol/L Blood Urea Nitrogen 19 mg/dl Creatinine 0.93 mg/dl Est Creatinine Clear Calc Drug Dose 53.5 ml/min Estimated GFR () 69.2 Estimated GFR (Non- 59.7 BUN/Creatinine Ratio 20.2 Random Glucose 113 mg/dl Calcium Level 8.5 mg/dl Test 07/10/17 21:35 07/11/17 00:13 07/11/17 05:07 07/11/17 06:59 Bedside Glucose 166 mg/dl White Blood Count 14.49 K/uL 13.75 K/uL Red Blood Count 2.86 M/uL 2.85 M/uL Hemoglobin 9.5 g/dL 9.5 g/dL Hematocrit 28.5 % 28.4 % Mean Corpuscular Volume 99.7 fL 99.6 fL Mean Corpuscular Hemoglobin 33.2 pg 33.3 pg Mean Corpuscular Hemoglobin Concent 33.3 g/dl 33.5 g/dl Platelet Count 153 K/uL 153 K/uL Mean Platelet Volume 9.2 fL 9.1 fL Neutrophils (%) (Auto) 72.7 % 71.0 % Lymphocytes (%) (Auto) 15.7 % 16.1 % Monocytes (%) (Auto) 7.5 % 8.5 % Eosinophils (%) (Auto) 3.7 % 4.1 % Basophils (%) (Auto) 0.2 % 0.2 % Neutrophils # (Auto) 10.54 K/uL 9.75 K/uL Lymphocytes # (Auto) 2.27 K/uL 2.21 K/uL Monocytes # (Auto) 1.09 K/uL 1.17 K/uL Eosinophils # (Auto) 0.53 K/uL 0.57 K/uL Basophils # (Auto) 0.03 K/uL 0.03 K/uL RDW Standard Deviation 47.9 fL 48.5 fL RDW Coefficient of Variation 13.3 % 13.4 % Immature Granulocyte % (Auto) 0.2 % 0.1 % Immature Granulocyte # (Auto) 0.03 K/uL 0.02 K/uL Prothrombin Time 12.1 SECONDS Prothromb Time International Ratio 1.2 Activated Partial Thromboplast Time 27.5 SECONDS 30.1 SECONDS Partial Thromboplastin Ratio 1.1 1.2 Sodium Level 138 mmol/L Potassium Level 4.0 mmol/L Chloride Level 104 mmol/L Carbon Dioxide Level 27 mmol/L Anion Gap 7.0 mmol/L Blood Urea Nitrogen 11 mg/dl Creatinine 1.03 mg/dl Est Creatinine Clear Calc Drug Dose 48.3 ml/min Estimated GFR () 61.2 Estimated GFR (Non- 52.8 BUN/Creatinine Ratio 10.2 Random Glucose 139 mg/dl Calcium Level 7.4 mg/dl Phosphorus Level 3.0 mg/dl Magnesium Level 1.8 mg/dl
--- NOTE | 2017-07-11 11:01 | ECHOCARDIOGRAM REPORT ---
*NOTICE TO RECEIVING [employer] This information is strictly Confidential and protected under [place] law. [place] law prohibits you from making any further disclosure of this information unless further disclosure is expressly permitted by the written consent of the person to whom it pertains or is authorized by law. A general authorization for the release of medical or other information is not sufficient for this purpose. Hospital accepts no responsibility if the information is made available to any other person, INCLUDING THE PATIENT. Interpretation Summary * Name: TIA LOTT Study Date: 07/11/2017 06:27 AM BP: 101/55 mmHg * Patient Location: .MSICU\[id number]\E105\S\1 HR: 90 * : 1940 (M/d/yyyy) Gender: Female Height: 62 in * Age: 77 yrs Ethnicity: CA Weight: 197 lb * Ordering Physician: Henri Simpson * Referring Physician: UNKNOWN * Performed By: Laura Pierre RDCS * * Reason For Study: AFIB * BSA: 1.9 m2 * -- Conclusions -- * There is borderline concentric left ventricular hypertrophy. * Left ventricular systolic function is mildly reduced. * The right ventricular systolic function is reduced as assessed by tricuspid annular plane systolic excursion (TAPSE) (TAPSE <1.6 cm). * The left atrium is borderline dilated. * There is mild to moderate tricuspid regurgitation. * Right ventricular systolic pressure is elevated at 30-40mmHg. Procedure Details * A contrast injection of Definity was performed to improve assessment of LV function. * Contrast was injected into an intravenous site in the right arm. * One vial of Definity ultrasound contrast was diluted in normal saline to a total volume of 10 ml. A total of '1' ml of solution was administered during imaging. * Lot # [id number] of Definity utilized for procedure. * Expiration date 1 JUL 01. * The attending nurse who injected the contrast agent was LISA DUNN. Left Ventricle * The left ventricle is normal in size. * There is borderline concentric left ventricular hypertrophy. * Ejection Fraction = 45-50%. * Left ventricular systolic function is mildly reduced. * There are regional wall motion abnormalities as specified. * Basal segments appear to contract normally with severe hypokinesis of the entire apex, slightly better wall motion in the inferior apex. Possibly consistent with Takotsubo Right Ventricle * The right ventricle is normal size. * The right ventricular systolic function is reduced as assessed by tricuspid annular plane systolic excursion (TAPSE) (TAPSE <1.6 cm). Atria * The left atrium is borderline dilated. * Right atrial size is normal. Mitral Valve * The mitral valve is grossly normal. * Significant mitral regurgitation is absent. Tricuspid Valve * The tricuspid valve is not well visualized. * There is mild to moderate tricuspid regurgitation. * Right ventricular systolic pressure is elevated at 30-40mmHg. Aortic Valve * The aortic valve is not well visualized. * No hemodynamically significant valvular aortic stenosis. * There is no significant aortic regurgitation. Great Vessels * The aortic root is normal size. Pericardium/Pleural * There is no pericardial effusion. MMode 2D Measurements and Calculations IVSd 1.4 cm IVSs 1.8 cm LVIDd 4.3 cm LVIDs 3.0 cm LVPWd 1.2 cm LVPWs 1.9 cm IVS/LVPW 1.1 FS 30.6 % EDV(Teich) 85.2 ml ESV(Teich) 35.5 ml EF(Teich) 58.4 % EDV(cubed) 82.1 ml ESV(cubed) 27.4 ml EF(cubed) 66.6 % % IVS thick 28.7 % % LVPW thick 51.8 % LV mass(C)d 209.8 grams LV mass(C)dI 110.5 grams/m\S\2 LV mass(C)s 220.2 grams LV mass(C)sI 115.9 grams/m\S\2 SV(Teich) 49.7 ml SI(Teich) 26.2 ml/m\S\2 SV(cubed) 54.6 ml SI(cubed) 28.8 ml/m\S\2 Ao root diam 3.5 cm Ao root area 9.8 cm\S\2 LA dimension 4.0 cm LA/Ao 1.1 LVAd ap4 33.0 cm\S\2 LVLd ap4 7.6 cm EDV(MOD-sp4) 108.4 ml EDV(sp4-el) 121.1 ml LVAs ap4 20.8 cm\S\2 LVLs ap4 6.7 cm ESV(MOD-sp4) 50.1 ml ESV(sp4-el) 55.1 ml EF(MOD-sp4) 53.8 % EF(sp4-el) 54.5 % LVAd ap2 28.7 cm\S\2 LVLd ap2 8.1 cm EDV(MOD-sp2) 86.4 ml EDV(sp2-el) 86.3 ml LVAs ap2 17.5 cm\S\2 LVLs ap2 7.0 cm ESV(MOD-sp2) 34.4 ml ESV(sp2-el) 36.8 ml EF(MOD-sp2) 60.2 % EF(sp2-el) 57.4 % LVLd %diff 6.3 % EDV(MOD-bp) 96.2 ml LVLs %diff 5.2 % ESV(MOD-bp) 41.4 ml EF(MOD-bp) 57.0 % SV(MOD-sp4) 58.4 ml SI(MOD-sp4) 30.7 ml/m\S\2 SV(MOD-sp2) 52.0 ml SI(MOD-sp2) 27.4 ml/m\S\2 SV(MOD-bp) 54.8 ml SI(MOD-bp) 28.9 ml/m\S\2 SV(sp4-el) 66.0 ml SI(sp4-el) 34.7 ml/m\S\2 SV(sp2-el) 49.6 ml SI(sp2-el) 26.1 ml/m\S\2 Doppler Measurements and Calculations Ao V2 max 173.2 cm/sec Ao max PG 12.0 mmHg Ao max PG (full) 8.6 mmHg LV V1 max PG 3.4 mmHg LV V1 max 91.7 cm/sec TR max joe 276.1 cm/sec
[2017-07-11] MEDS ORDERED: CALCIUM GLUCONATE 10% 1,000 MG in SODIUM CHLORIDE 0.9% 50ML 50 ML IV ONE (15:15)
[2017-07-11 15:56] LABS: PTT PATIENT 107.1 SECONDS (21.0-31.0)
[2017-07-11] MEDS: CEFTRIAXONE SOD INJ 1 GM in DEXTROSE 5% ADD-VANTAGE 50ML 50 ML IV SCH (16:23)
--- NOTE | 2017-07-11 19:09 | Family Medicine Progress Note ---
Progress Note Date of Service Jul 11, 2017. Subjective Pt resting comfortably in bed in ICU, much more alert and conversational this morning. Denies pain anywhere. ROS See HPI for pertinent positives and negatives. Medications Current Inpatient Medications Medications (Trade) Dose Ordered Sig/Ld Route Start Time Stop Time Status Last Admin Dose Admin Acetaminophen (Tylenol Tab) 650 mg Q4H PRN PO 07/09/17 21:15 08/08/17 21:14 Lorazepam (Ativan Inj) 0.5 mg Q4H PRN IV 07/09/17 21:15 08/08/17 21:14 Miscellaneous Information (Icu Protocol For Hyperglycemia) 1 ea PRN PRN N/A 07/09/17 21:15 07/11/17 21:14 Glucose (Glucose 40% Gel) 15-30 GRAMS 15 GRAMS... UD PRN PO 07/09/17 22:45 08/08/17 22:44 Glucose (Glucose Chew Tab) 4-8 Tablets 4 Tabl... UD PRN PO 07/09/17 22:45 08/08/17 22:44 Dextrose (Dextrose 50% 50ML Syringe) 25-50ML OF 50% DW IV FOR... UD PRN IV 07/09/17 22:45 08/08/17 22:44 Glucagon (Glucagon Inj) 1 mg UD PRN SQ 07/09/17 22:45 08/08/17 22:44 Multivitamins/ Minerals (Multivitamin W/ Minerals Tab) 1 tab DAILY PO 07/10/17 09:00 08/09/17 08:59 07/11/17 07:44 1 TAB Diltiazem HCl (TIAzac CAP) 120 mg DAILY PO 07/10/17 09:00 08/09/17 08:59 07/11/17 07:45 120 MG Diltiazem HCl (TIAzac CAP) 180 mg DAILY PO 07/10/17 09:00 08/09/17 08:59 07/11/17 07:45 180 MG Insulin Aspart (novoLOG ASPART) SLIDING SCALE If C... ACHS SC 07/10/17 21:00 08/09/17 20:59 07/11/17 11:51 1 UNITS Amiodarone HCL/ Dextrose 200 ml @ 16.7 mls/hr [id number] IV 07/11/17 01:35 07/11/17 21:00 07/11/17 16:06 16.7 MLS/HR Heparin Sodium/ Dextrose 500 ml @ 19 mls/hr Q24H PRN IV 07/10/17 23:45 08/09/17 23:44 07/11/17 00:56 16 MLS/HR Sodium Chloride 1,000 ml @ 100 mls/hr Q10H IV 07/11/17 07:00 08/10/17 06:59 07/11/17 17:18 100 MLS/HR Amiodarone HCl (Cordarone Tab) 200 mg BID PO 07/11/17 21:00 08/10/17 20:59 Miscellaneous (Stop Order) 1 ea TODAY@2100 ONCE N/A 07/11/17 21:00 07/11/17 21:01 Levothyroxine Sodium (Synthroid Tab) 137 mcg DAILYBB PO 07/12/17 06:00 08/11/17 05:59 Ceftriaxone Sodium 1 gm/ Dextrose 50 ml @ 100 mls/hr Q24H IV 07/11/17 16:00 07/16/17 15:59 07/11/17 16:23 100 MLS/HR Objective Vital Signs Date Time Temp Pulse Resp B/P (MAP) Pulse Ox O2 Delivery O2 Flow Rate FiO2 07/11/17 16:00 37.1 79 16 95/60 (72) 94 Mechanical Ventilator 50 07/11/17 16:00 Nasal Cannula 2.0 07/11/17 12:00 Nasal Cannula 2.0 07/11/17 12:00 37.1 68 16 87/53 (64) 96 Nasal Cannula 2.0 07/11/17 08:00 Nasal Cannula 07/11/17 08:00 36.8 103 18 106/54 (71) 98 Nasal Cannula 2.0 07/11/17 08:00 Room Air 07/11/17 06:31 85 101/55 (70) 95 Nasal Cannula 2.0 07/11/17 06:01 94 93/56 (68) 93 Nasal Cannula 2.0 07/11/17 05:57 87 122/42 (68) 97 Nasal Cannula 2.0 07/11/17 05:31 93 94/48 (63) 96 Nasal Cannula 2.0 07/11/17 05:01 95 104/47 (66) 95 Nasal Cannula 2.0 07/11/17 04:32 101 100/57 (71) 97 Nasal Cannula 2.0 07/11/17 04:01 37.1 80 18 106/52 (70) 95 Nasal Cannula 2.0 07/11/17 04:00 Room Air 07/11/17 03:31 94 97/50 (66) 93 Nasal Cannula 2.0 07/11/17 03:01 94 97/58 (71) 94 Nasal Cannula 2.0 07/11/17 02:31 93 91/54 (66) 99 Nasal Cannula 2.0 07/11/17 02:01 92 93/65 (74) 96 Nasal Cannula 2.0 07/11/17 01:32 93 100/48 (65) 96 Nasal Cannula 2.0 07/11/17 01:01 87 113/50 (71) 97 Nasal Cannula 2.0 07/11/17 00:31 94 20 93/55 (68) 94 Nasal Cannula 2.0 07/11/17 00:01 37.2 89 98/46 (63) 96 Nasal Cannula 2.0 07/11/17 00:01 Room Air 07/10/17 23:31 83 94/45 (61) 97 Nasal Cannula 2.0 07/10/17 23:17 114 95/50 (65) 95 Nasal Cannula 2.0 07/10/17 23:01 83 85/50 (62) 99 Nasal Cannula 2.0 07/10/17 22:46 90 88/43 (58) 96 Nasal Cannula 2.0 07/10/17 22:31 85 110/54 (72) 96 Nasal Cannula 2.0 07/10/17 22:16 89 80/38 (52) 91 Nasal Cannula 2.0 07/10/17 22:01 80 18 95/50 (65) 95 Nasal Cannula 2.0 07/10/17 21:46 70 94/51 (65) 97 Nasal Cannula 2.0 07/10/17 21:31 74 88/43 (58) 96 Nasal Cannula 2.0 07/10/17 21:16 85 96/43 (60) 97 Nasal Cannula 2.0 07/10/17 21:06 81 95/47 (63) 97 Nasal Cannula 2.0 07/10/17 20:59 76 21 98/45 (62) 91 Nasal Cannula 2.0 07/10/17 20:47 71 53/47 (49) 96 Nasal Cannula 2.0 07/10/17 20:31 87 76/46 (56) 96 Nasal Cannula 2.0 07/10/17 20:16 86 110/69 (83) 96 Nasal Cannula 2.0 07/10/17 20:05 74 96/52 (67) 97 Nasal Cannula 2.0 07/10/17 20:00 36.9 84 22 89/55 (66) 95 Nasal Cannula 2.0 07/10/17 20:00 Room Air 07/10/17 19:31 82 106/65 (79) 98 Nasal Cannula 2.0 07/10/17 19:31 37.4 82 106/65 (79) 07/10/17 19:16 108 118/69 (85) 95 Nasal Cannula 2.0 Physical Exam Notes: GENERAL: Awake, AOx3, in no distress. Eason draining yellow clear urine HENT: Normocephalic, atraumatic. EYES: Normal conjunctiva. Sclera non-icteric. NECK: Supple. Dialysis port in place RESPIRATORY: Clear to auscultation. CARDIAC: Irregularly regular rhythm. Extremities warm and well perfused. Pulses equal. ABDOMEN: Soft, non-distended. No tenderness to palpation. No rebound or guarding. No masses. NEURO: Right sided hemiparesis, chronic. SKIN: No rash or jaundice noted. Laboratory Results 07/11/17 05:07 Red Blood Count 2.85, Mean Corpuscular Volume 99.6, Mean Corpuscular Hemoglobin 33.3, Mean Corpuscular Hemoglobin Concent 33.5, Mean Platelet Volume 9.1, Neutrophils (%) (Auto) 71.0, Lymphocytes (%) (Auto) 16.1, Monocytes (%) (Auto) 8.5, Eosinophils (%) (Auto) 4.1, Basophils (%) (Auto) 0.2, Neutrophils # (Auto) 9.75, Lymphocytes # (Auto) 2.21, Monocytes # (Auto) 1.17, Eosinophils # (Auto) 0.57, Basophils # (Auto) 0.03 07/11/17 05:07 Test 07/10/17 21:35 07/11/17 00:13 07/11/17 05:07 07/11/17 08:58 Bedside Glucose 166 mg/dl (70-90) Prothrombin Time 12.1 SECONDS (9.0-12.0) Prothromb Time International Ratio 1.2 (0.9-1.1) White Blood Count 13.75 K/uL (4.8-10.8) Red Blood Count 2.85 M/uL (4.2-5.4) Hemoglobin 9.5 g/dL (12.0-16.0) Hematocrit 28.4 % (37-47) Mean Corpuscular Volume 99.6 fL (80-100) Mean Corpuscular Hemoglobin 33.3 pg (25-34) Mean Corpuscular Hemoglobin Concent 33.5 g/dl (32-36) Platelet Count 153 K/uL (130-400) Mean Platelet Volume 9.1 fL (7.4-10.4) Neutrophils (%) (Auto) 71.0 % Lymphocytes (%) (Auto) 16.1 % Monocytes (%) (Auto) 8.5 % Eosinophils (%) (Auto) 4.1 % Basophils (%) (Auto) 0.2 % Neutrophils # (Auto) 9.75 K/uL (1.4-6.5) Lymphocytes # (Auto) 2.21 K/uL (1.2-3.4) Monocytes # (Auto) 1.17 K/uL (0.11-0.59) Eosinophils # (Auto) 0.57 K/uL (0-0.5) Basophils # (Auto) 0.03 K/uL (0-0.2) RDW Standard Deviation 48.5 fL (36.4-46.3) RDW Coefficient of Variation 13.4 % (11.5-14.5) Immature Granulocyte % (Auto) 0.1 % Immature Granulocyte # (Auto) 0.02 K/uL (0.00-0.02) Anion Gap 7.0 mmol/L (3-11) Est Creatinine Clear Calc Drug Dose 48.3 ml/min Estimated GFR () 61.2 Estimated GFR (Non- 52.8 BUN/Creatinine Ratio 10.2 (10-20) Calcium Level 7.4 mg/dl (8.5-10.1) Phosphorus Level 3.0 mg/dl (2.5-4.9) Magnesium Level 1.8 mg/dl (1.8-2.4) Ionized Calcium 0.98 mmol/l (1.12-1.32) Test 07/11/17 14:47 Activated Partial Thromboplast Time 107.1 SECONDS (21.0-31.0) Partial Thromboplastin Ratio 4.1 Assessment and Plan Patient is a 77 year old female with a past medical history of Right Sided CVA with hemiparesis in 2016, HTN, HLD, DM, Stage 2 CKD, and Hypothyroidism s/p treatment of thyroid cancer that presents as a Direct Admit from [facility] with Hyperkalemia of 8.2 Acute Hyperkalemia - resolved - Most likely 2/2 medication use (Aldactone, Benazepril, and K+) --> Currently holding these medications - Administered at outside hospital: Sodium Bicarb 50ml, Calcium Cl 1gm, Dextrose 50% 50ml, Insulin Regular 2.5 units, Albuterol 1 amp, and 500ml of NS - Repeat bmp shows K at 4 today. - received dialysis, per Nephro management. Port still in place tomorrow in case additional dialysis needed, but not scheduled as of now. New Onset AFIB overnight - rate controlled - Amiodarone drip running. Plan to begin PO 200mg this evening. CKD Stage 2 - last cr .9, resolved. Hypomagnesemia - repleted - Magnesium of 1.8, resolved. Urinary Incontinence 2/2 CVA - Eason Catheter - Urinalysis shows small leuks, no nitrites - Urine Culture growing gram negative bacilli -- Rocephin 1gm IV daily started DAY 1 07/11. - Monitor I/O -- output decreasing yesterday evening. Following. [id number] - ISS with BSG Checks AC/HS - Hold home Metformin and Glipizide Hypothyroidism - Synthroid 75 mcg IV QAM Hypertension - Hold home Benazepril, Aldactone, and Cardizem as above CVD - Holding home Aspirin - Holding home Tramadol GERD - Pepcid IV DVT: SCD's Code Status: DNR Dispo: ICU Resident Physician Supervision Note: I was present with Dr. Perez during the history and exam. I discussed the case with the resident and agree with the findings and plan as documented in the note. I also discussed the case with ICU team and nephrology distributor sales consultant. PLAN 1) Amiodarone can be converted to PO tomorrow. 2) Continue heparin and start coumadin once HD cath discontinued. 3) Add Rocephin for UTI. Documented By: Andrew Quesada Continued [facility] stay due to: multiple IV medications needed Resident Tracking Resident Involvement: Resident Care Provided Care Provided: Adult Hospital Medicine
[2017-07-11] MEDS: AMIODARONE 200 MG TAB PO SCH (20:39)
[2017-07-11] MEDS ORDERED: AMIODARONE DRIP - STOP ORDER ONE (21:00)
[2017-07-11] MEDS ORDERED: HEPARIN IV BOLUS 3,000 UNIT in SYRINGE 0 ML IV ONE (23:45)
[2017-07-12] VITALS (8 sets, daily range): BP systolic 110–131; BP diastolic 52–70; PULSE 78–105; TEMP 36.7–37.5; O2SAT 91–96
[2017-07-12] MEDS: SODIUM CHLORIDE 0.9% 1000ML 1,000 ML IV SCH ×2 (03:45→17:06)
[2017-07-12 05:22] LABS: BASO % 0.1 %; BASO ABS # 0.01 K/uL (0-0.2); HEMATOCRIT 26.9 % (37-47); IG# 0.05 K/uL (0.00-0.02); LYMPH ABS # 2.03 K/uL (1.2-3.4); MEAN CELL VOLUME 99.3 fL (80-100); MEAN CORPUSCULAR HEMOGLOBIN 33.2 pg (25-34); MEAN CORPUSCULAR HGB CONC 33.5 g/dl (32-36); MEAN PLATELET VOLUME 8.9 fL (7.4-10.4); MONO % 9.8 %; MONO ABS # 1.17 K/uL (0.11-0.59); NEUT % 67.7 %; PLATELET COUNT 148 K/uL (130-400); RED CELL DISTRIBUTION WIDTH CV 13.6 % (11.5-14.5); RED CELL DISTRIBUTION WIDTH SD 48.7 fL (36.4-46.3); WHITE BLOOD COUNT 11.96 K/uL (4.8-10.8)
[2017-07-12 05:54] LABS: CALCIUM 7.2 mg/dl (8.5-10.1); CREATININE 1.54 mg/dl (0.60-1.20); POTASSIUM 3.8 mmol/L (3.5-5.1)
[2017-07-12 06:09] LABS: PTT PATIENT 94.9 SECONDS (21.0-31.0)
[2017-07-12] MEDS: LEVOTHYROXINE 137 MCG TAB PO SCH (06:35)
[2017-07-12] MEDS: DILTIAZEM HCL (TIAzac) 180 MG CAPCR PO SCH (08:18)
[2017-07-12] MEDS: CEROVITE ADV FORMULA TAB PO SCH (08:18)
[2017-07-12] MEDS: AMIODARONE 200 MG TAB PO SCH ×2 (08:18→21:22)
[2017-07-12] MEDS: DILTIAZEM HCL 120 MG EXT REL CAP PO SCH (08:18)
[2017-07-12] MEDS: INSULIN ASPART 100 UNITS/ML 3 ML PEN SC SCH ×4 (08:20→21:00)
[2017-07-12] MEDS: HEPARIN 25,000 UNIT/500ML D5W 500 ML IV PRN ×3 (08:20→19:24)
[2017-07-12] MEDS ORDERED: MAGNESIUM OXIDE 400 MG TAB PO ONE (10:15)
[2017-07-12] MEDS ORDERED: ACETAMINOPHEN 500 MG TAB PO PRN (10:45)
--- NOTE | 2017-07-12 12:16 | Nephrology Progress Note ---
Nephrology Progress Note Date of Service: Jul 12, 2017. Subjective up in chair; on RA, ongoing thick cough. no pain. minimal UOP; team debating whether to start coumadin; on heparin gtt currently Objective Date Time Temp Pulse Resp B/P (MAP) Pulse Ox O2 Delivery O2 Flow Rate FiO2 07/12/17 06:00 Nasal Cannula 2.0 07/12/17 04:00 36.8 81 16 118/67 (84) 94 Nasal Cannula 2.0 07/12/17 00:00 Nasal Cannula 2.0 07/12/17 00:00 37.5 85 22 118/63 (81) 96 Nasal Cannula 2.0 07/11/17 20:00 Nasal Cannula 2.0 07/11/17 20:00 36.5 74 24 117/67 (84) 97 Nasal Cannula 2.0 07/11/17 16:00 37.1 79 16 95/60 (72) 94 Mechanical Ventilator 50 07/11/17 16:00 Nasal Cannula 2.0 07/11/17 12:00 Nasal Cannula 2.0 07/11/17 12:00 37.1 68 16 87/53 (64) 96 Nasal Cannula 2.0 Physical Exam: General-up in chair on RA, A& O x 3, thick cough recurrently in exam Eyes-eomi ENT-mmm Neck-supple, R IJ Lungs-coarse/ diminished Heart-irregular in 100s; trace BL edema Abdomen-steve w/ scant brown urine; NT, +BS Extremities-trace edema Neuro-R hemiparesis, fluent speech Current Inpatient Medications Medications (Trade) Dose Ordered Sig/Ld Route Start Time Stop Time Status Last Admin Dose Admin Acetaminophen (Tylenol Tab) 650 mg Q4H PRN PO 07/09/17 21:15 08/08/17 21:14 Lorazepam (Ativan Inj) 0.5 mg Q4H PRN IV 07/09/17 21:15 08/08/17 21:14 Glucose (Glucose 40% Gel) 15-30 GRAMS 15 GRAMS... UD PRN PO 07/09/17 22:45 08/08/17 22:44 Glucose (Glucose Chew Tab) 4-8 Tablets 4 Tabl... UD PRN PO 07/09/17 22:45 08/08/17 22:44 Dextrose (Dextrose 50% 50ML Syringe) 25-50ML OF 50% DW IV FOR... UD PRN IV 07/09/17 22:45 08/08/17 22:44 Glucagon (Glucagon Inj) 1 mg UD PRN SQ 07/09/17 22:45 08/08/17 22:44 Multivitamins/ Minerals (Multivitamin W/ Minerals Tab) 1 tab DAILY PO 07/10/17 09:00 08/09/17 08:59 07/12/17 08:18 1 TAB Diltiazem HCl (TIAzac CAP) 120 mg DAILY PO 07/10/17 09:00 08/09/17 08:59 07/12/17 08:18 120 MG Diltiazem HCl (TIAzac CAP) 180 mg DAILY PO 07/10/17 09:00 08/09/17 08:59 07/12/17 08:18 180 MG Insulin Aspart (novoLOG ASPART) SLIDING SCALE If C... ACHS SC 07/10/17 21:00 08/09/17 20:59 07/12/17 08:20 3 UNITS Heparin Sodium/ Dextrose 500 ml @ 14 mls/hr Q24H PRN IV 07/10/17 23:45 08/09/17 23:44 07/12/17 08:20 14 MLS/HR Sodium Chloride 1,000 ml @ 100 mls/hr Q10H IV 07/11/17 07:00 08/10/17 06:59 07/12/17 03:45 100 MLS/HR Amiodarone HCl (Cordarone Tab) 200 mg BID PO 07/11/17 21:00 08/10/17 20:59 07/12/17 08:18 200 MG Levothyroxine Sodium (Synthroid Tab) 137 mcg DAILYBB PO 07/12/17 06:00 08/11/17 05:59 07/12/17 06:35 137 MCG Ceftriaxone Sodium 1 gm/ Dextrose 50 ml @ 100 mls/hr Q24H IV 07/11/17 16:00 07/16/17 15:59 07/11/17 16:23 100 MLS/HR Magnesium Oxide (Mag-Ox Tab) 400 mg QAM PO 07/13/17 09:00 08/12/17 08:59 Acetaminophen (Tylenol Tab) 500 mg Q4H PRN PO 07/12/17 10:45 08/11/17 10:44 UNV Last 24 Hours Test 07/11/17 14:47 07/11/17 16:00 07/11/17 20:36 07/11/17 22:38 Activated Partial Thromboplast Time 107.1 SECONDS 41.0 SECONDS Partial Thromboplastin Ratio 4.1 1.6 Bedside Glucose 131 mg/dl 148 mg/dl Test 07/12/17 05:03 07/12/17 06:38 07/12/17 10:58 White Blood Count 11.96 K/uL Red Blood Count 2.71 M/uL Hemoglobin 9.0 g/dL Hematocrit 26.9 % Mean Corpuscular Volume 99.3 fL Mean Corpuscular Hemoglobin 33.2 pg Mean Corpuscular Hemoglobin Concent 33.5 g/dl Platelet Count 148 K/uL Mean Platelet Volume 8.9 fL Neutrophils (%) (Auto) 67.7 % Lymphocytes (%) (Auto) 17.0 % Monocytes (%) (Auto) 9.8 % Eosinophils (%) (Auto) 5.0 % Basophils (%) (Auto) 0.1 % Neutrophils # (Auto) 8.10 K/uL Lymphocytes # (Auto) 2.03 K/uL Monocytes # (Auto) 1.17 K/uL Eosinophils # (Auto) 0.60 K/uL Basophils # (Auto) 0.01 K/uL RDW Standard Deviation 48.7 fL RDW Coefficient of Variation 13.6 % Immature Granulocyte % (Auto) 0.4 % Immature Granulocyte # (Auto) 0.05 K/uL Activated Partial Thromboplast Time 94.9 SECONDS Partial Thromboplastin Ratio 3.7 Sodium Level 139 mmol/L Potassium Level 3.8 mmol/L Chloride Level 106 mmol/L Carbon Dioxide Level 26 mmol/L Anion Gap 7.0 mmol/L Blood Urea Nitrogen 15 mg/dl Creatinine 1.54 mg/dl Est Creatinine Clear Calc Drug Dose 32.8 ml/min Estimated GFR () 37.6 Estimated GFR (Non- 32.4 BUN/Creatinine Ratio 9.6 Random Glucose 137 mg/dl Calcium Level 7.2 mg/dl Phosphorus Level 4.0 mg/dl Magnesium Level 1.7 mg/dl Bedside Glucose 135 mg/dl 203 mg/dl Assessment & Plan 77 y/o F w/ NIDDM, hx of nephrotic range proteinuria, stroke w/ chronic R hemiparesis, HTN, HL, past urethral sling procedure had N/ V/ malaise worse midday today and sent to ER for eval where labs showed HERMINIO w/ K 9.1 at OSH, 8.2 here. Baseline creatinine 0.6. Currently on Severe hyperkalemia on presentation, likely induced by her outpatient medications and complicated by junctional cardiac rhythm at OSH. She needed 2 dialysis treatments to optimize K, which is currently acceptable Borderline oliguric acute renal failure, creatinine more than double her baseline -concern for ATN looking at brown urine -may be ischemic ATN given her labile and often lower blood pressures past 24- 48 hrs >repeat CXR, UACM, urine cx, blood cxs (has had 1 gm ceftriaxone) >>given her labile renal function which is still worsening, pls leave dialysis cath in place one more day Hypomagnesemia -on po mag Labile blood pressures w/ new onset a fib -per primary service; cont NS for now pending CXR results Complexity high. Appreciate consult.
[2017-07-12 13:09] LABS: PTT PATIENT 34.4 SECONDS (21.0-31.0)
[2017-07-12] MEDS ORDERED: HEPARIN IV BOLUS 4,500 UNIT in SYRINGE 0 ML IV ONE (13:30)
--- NOTE | 2017-07-12 13:58 | DIAGNOSTIC IMAGING REPORT ---
CHEST ONE VIEW PORTABLE CLINICAL HISTORY: Cough. Bradycardia. COMPARISON STUDY: Chest radiograph September 06, 2017. FINDINGS: The tip of the right internal jugular central line projects over the distal SVC. There is no pneumothorax or pleural effusion. No evidence for pulmonary edema. Moderate cardiomegaly. No consolidation is identified. IMPRESSION: No acute cardiopulmonary findings. No change in appearance of the chest. Electronically signed by: Humberto Naranjo M.D. 07/12/2017 1:57 PM Dictated Date/Time: 07/12/2017 1:56 PM
[2017-07-12] MEDS: CEFTRIAXONE SOD INJ 1 GM in DEXTROSE 5% ADD-VANTAGE 50ML 50 ML IV SCH (17:09)
--- NOTE | 2017-07-12 17:32 | Family Medicine Progress Note ---
Progress Note Date of Service Jul 12, 2017. Subjective Pt resting comfortably in bed in ICU, much more alert and conversational this morning. Denies pain anywhere. Has questions about "what is afib" and also complains of a cough that sometimes brings up mucus. She says that when she tries to drink water it makes her gag some. Says she used to be on thick liquids after her stroke a few years ago, but had transitioned to clear liquids since then. ROS See HPI for pertinent positives and negatives. Medications Current Inpatient Medications Medications (Trade) Dose Ordered Sig/Ld Route Start Time Stop Time Status Last Admin Dose Admin Acetaminophen (Tylenol Tab) 650 mg Q4H PRN PO 07/09/17 21:15 08/08/17 21:14 Lorazepam (Ativan Inj) 0.5 mg Q4H PRN IV 07/09/17 21:15 08/08/17 21:14 Glucose (Glucose 40% Gel) 15-30 GRAMS 15 GRAMS... UD PRN PO 07/09/17 22:45 08/08/17 22:44 Glucose (Glucose Chew Tab) 4-8 Tablets 4 Tabl... UD PRN PO 07/09/17 22:45 08/08/17 22:44 Dextrose (Dextrose 50% 50ML Syringe) 25-50ML OF 50% DW IV FOR... UD PRN IV 07/09/17 22:45 08/08/17 22:44 Glucagon (Glucagon Inj) 1 mg UD PRN SQ 07/09/17 22:45 08/08/17 22:44 Multivitamins/ Minerals (Multivitamin W/ Minerals Tab) 1 tab DAILY PO 07/10/17 09:00 08/09/17 08:59 07/12/17 08:18 1 TAB Diltiazem HCl (TIAzac CAP) 120 mg DAILY PO 07/10/17 09:00 08/09/17 08:59 07/12/17 08:18 120 MG Diltiazem HCl (TIAzac CAP) 180 mg DAILY PO 07/10/17 09:00 08/09/17 08:59 07/12/17 08:18 180 MG Insulin Aspart (novoLOG ASPART) SLIDING SCALE If C... ACHS SC 07/10/17 21:00 08/09/17 20:59 07/12/17 17:11 3 UNITS Heparin Sodium/ Dextrose 500 ml @ 17 mls/hr Q24H PRN IV 07/10/17 23:45 08/09/17 23:44 07/12/17 19:24 17 MLS/HR Sodium Chloride 1,000 ml @ 100 mls/hr Q10H IV 07/11/17 07:00 08/10/17 06:59 Future Hold 07/12/17 03:45 100 MLS/HR Amiodarone HCl (Cordarone Tab) 200 mg BID PO 07/11/17 21:00 08/10/17 20:59 07/12/17 21:22 200 MG Levothyroxine Sodium (Synthroid Tab) 137 mcg DAILYBB PO 07/12/17 06:00 08/11/17 05:59 07/12/17 06:35 137 MCG Ceftriaxone Sodium 1 gm/ Dextrose 50 ml @ 100 mls/hr Q24H IV 07/11/17 16:00 07/16/17 15:59 07/12/17 17:09 100 MLS/HR Magnesium Oxide (Mag-Ox Tab) 400 mg QAM PO 07/13/17 09:00 08/12/17 08:59 Acetaminophen (Tylenol Tab) 500 mg Q4H PRN PO 07/12/17 10:45 08/11/17 10:44 Objective Vital Signs Date Time Temp Pulse Resp B/P (MAP) Pulse Ox O2 Delivery O2 Flow Rate FiO2 07/13/17 04:00 Room Air 07/13/17 03:14 37.1 83 18 119/57 (77) 91 Room Air 07/12/17 23:59 Room Air 07/12/17 23:40 37.4 78 18 131/60 (83) 91 Room Air 07/12/17 21:17 84 116/70 (85) 92 Room Air 07/12/17 20:29 Room Air 07/12/17 19:27 36.7 88 18 93 2.0 07/12/17 16:25 36.7 88 18 118/68 (85) 93 Room Air 07/12/17 16:00 Room Air 07/12/17 12:00 Room Air 07/12/17 10:51 36.9 79 18 110/52 (71) 96 Room Air 07/12/17 08:22 37.1 105 16 117/65 (82) 94 Room Air 07/12/17 08:00 Room Air 07/12/17 06:00 Nasal Cannula 2.0 Physical Exam Notes: GENERAL: Awake, AOx3, in no distress. Eason draining DARK colored urine. HENT: Normocephalic, atraumatic. EYES: Normal conjunctiva. Sclera non-icteric. NECK: Supple. Dialysis port in place RESPIRATORY: Slight crackles in the bases. CARDIAC: Irregularly regular rhythm. Extremities warm and well perfused. Pulses equal. ABDOMEN: Soft, non-distended. No tenderness to palpation. No rebound or guarding. No masses. NEURO: Right sided hemiparesis, chronic. SKIN: No rash or jaundice noted. Laboratory Results Test 07/12/17 20:43 07/12/17 21:16 07/13/17 04:44 Bedside Glucose 124 mg/dl (70-90) Urine Color BROWN Urine Appearance TURBID (CLEAR) Urine pH 5.5 (4.5-7.5) Urine Specific [place] >= 1.030 (1.000-1.030) Urine Protein 2+ (NEG) Urine Glucose (UA) NEG (NEG) Urine Ketones TRACE (NEG) Urine Occult Blood 3+ (NEG) Urine Nitrite NEG (NEG) Urine Bilirubin NEG (NEG) Urine Urobilinogen NEG (NEG) Urine Leukocyte Esterase NEG (NEG) Urine RBC >30 /hpf (0-4) Urine WBC >30 /hpf (0-5) Urine Epithelial Cells >30 /lpf (0-5) Urine Bacteria 2+ (NEG) Urine Hyaline Casts 5-10 /lpf (0-5) Urine Granular Casts 1-5 /lpf (0) Assessment and Plan Patient is a 77 year old female with a past medical history of Right Sided CVA with hemiparesis in 2016, HTN, HLD, DM, Stage 2 CKD, and Hypothyroidism s/p treatment of thyroid cancer that presents as a Direct Ad[facility] from [facility] with Hyperkalemia of 8.2 Acute Hyperkalemia - resolved - Most likely multifactorial 2/2 medication use and worsening kidney function - Home meds of Aldactone, Benazepril, and K+ --> Currently holding these medications - received dialysis x 2 thus far, per Nephro management. Port still in place tomorrow in case additional dialysis needed, but not scheduled as of now. New Onset AFIB - now rate controlled - Amiodarone PO 200mg BID - on Tele CKD Stage 2 --> 3 - Worsening creatinine, oliguric. - fluids stopped per Dr. Garner's rec, encourage oral hydration - speech eval consulted. - Nephro following - repeat CXR today showed no change, no acute edema. Day team can consider restarting gentle fluids if still dry. Hypomagnesemia - repleted - Follow. Urinary Incontinence 06/14 CVA - Eason Catheter - Urinalysis shows small leuks, no nitrites - Urine Culture growing gram negative bacilli -- Rocephin 1gm IV daily started DAY 2 07/12. - Monitor I/O -- output decreasing yesterday evening. Following. [id number] - ISS with BSG Checks AC/HS - Hold home Metformin and Glipizide Hypothyroidism - Synthroid 75 mcg IV QAM Hypertension - Hold home Benazepril, Aldactone, and Cardizem as above CVD - Holding home Aspirin - Holding home Tramadol GERD - Pepcid IV DVT: SCD's Code Status: DNR Dispo: Tele. Bed is on hold at her SNF. Discussed her case at length with Daughter Carmel Roca who lives out [place]. Please call her to update over the weekend phone: [phone]. Discharge planning: snf facility Resident Tracking Resident Involvement: Resident Care Provided Care Provided: Adult Hospital Medicine History Resident Physician Supervision Note: I was present with Dr. Perez during the history and exam. I discussed the case with the resident and agree with the findings and plan as documented in the note. Any exceptions or clarifications are listed here. Pt reports improving fatigue and malaise. At present, with decreasing UOP and changesin urine quality, would leave dialysis catheter in and follow w/ nephrology w/ lab studies in case of worsening renal function. Additionally, rate/rhythm control with present regimen appears stable.
[2017-07-12 20:38] LABS: PTT PATIENT 56.5 SECONDS (21.0-31.0)
[2017-07-13 03:14] VITALS: BP 119/57; PULSE 83; TEMP 37.1; O2SAT 91
[2017-07-13] MEDS: LEVOTHYROXINE 137 MCG TAB PO SCH (05:51)
[2017-07-13 06:23] LABS: BASO % 0.1 %; BASO ABS # 0.02 K/uL (0-0.2); EOS % 4.2 %; EOS ABS # 0.58 K/uL (0-0.5); HEMATOCRIT 28.5 % (37-47); HEMOGLOBIN 9.3 g/dL (12.0-16.0); IG# 0.04 K/uL (0.00-0.02); LYMPH % 14.1 %; LYMPH ABS # 1.93 K/uL (1.2-3.4); MEAN CELL VOLUME 99.3 fL (80-100); MEAN CORPUSCULAR HEMOGLOBIN 32.4 pg (25-34); MEAN CORPUSCULAR HGB CONC 32.6 g/dl (32-36); MEAN PLATELET VOLUME 9.7 fL (7.4-10.4); MONO % 9.2 %; MONO ABS # 1.26 K/uL (0.11-0.59); NEUT % 72.1 %; NEUT ABS # 9.82 K/uL (1.4-6.5); PLATELET COUNT 193 K/uL (130-400); RED CELL DISTRIBUTION WIDTH CV 13.5 % (11.5-14.5); RED CELL DISTRIBUTION WIDTH SD 48.5 fL (36.4-46.3); WHITE BLOOD COUNT 13.65 K/uL (4.8-10.8)
[2017-07-13 06:49] LABS: PTT PATIENT 42.4 SECONDS (21.0-31.0)
[2017-07-13 07:01] LABS: CALCIUM 7.6 mg/dl (8.5-10.1); CREATININE 1.64 mg/dl (0.60-1.20); PHOSPHORUS 4.2 mg/dl (2.5-4.9); POTASSIUM 3.7 mmol/L (3.5-5.1)
[2017-07-13] MEDS ORDERED: HEPARIN IV BOLUS 3,000 UNIT in SYRINGE 0 ML IV ONE (08:00)
[2017-07-13 08:27] VITALS: BP 127/88; PULSE 118; TEMP 36.6; O2SAT 91
[2017-07-13] MEDS: INSULIN ASPART 100 UNITS/ML 3 ML PEN SC SCH ×4 (08:31→21:00)
[2017-07-13] MEDS: HEPARIN 25,000 UNIT/500ML D5W 500 ML IV PRN ×2 (08:31→16:36)
[2017-07-13] MEDS: AMIODARONE 200 MG TAB PO SCH ×2 (08:34→21:36)
[2017-07-13] MEDS: DILTIAZEM HCL 120 MG EXT REL CAP PO SCH (08:34)
[2017-07-13] MEDS: MAGNESIUM OXIDE 400 MG TAB PO SCH (08:34)
[2017-07-13] MEDS: DILTIAZEM HCL (TIAzac) 180 MG CAPCR PO SCH (08:34)
[2017-07-13] MEDS: CEROVITE ADV FORMULA TAB PO SCH (08:34)
[2017-07-13] MEDS ORDERED: AMIODARONE IV BOLUS / DRIP IV STA (10:16)
--- NOTE | 2017-07-13 11:09 | Family Medicine Progress Note ---
Progress Note Date of Service Jul 13, 2017. Subjective Pt evaluation today including: conversation w/ patient, physical exam, chart review, lab review, review of studies, conversation w/ senior treasury consultant, review of inpatient medication list Patient well, denies any acute overnight events. She is not aware of her rapid heart rate, is not feeling chest pain, palpitations, dyspnea or lightheadedness. She does feel trapped in bed, and would like to get out of bed more. She otherwise denies fevers/chills, headaches, abdominal pain, lower extremity swelling (although she is complaining that her right, paralyzed leg is uncomfortable) or rashes. She is tolerating diet without nausea or vomiting but admits to diminished appetite. She has Eason in place. ROS is unremarkable except as noted above. Objective Vital Signs Date Time Temp Pulse Resp B/P (MAP) Pulse Ox O2 Delivery O2 Flow Rate FiO2 07/13/17 08:27 36.6 118 18 127/88 (101) 91 07/13/17 08:20 Room Air 07/13/17 04:00 Room Air 07/13/17 03:14 37.1 83 18 119/57 (77) 91 Room Air 07/12/17 23:59 Room Air 07/12/17 23:40 37.4 78 18 131/60 (83) 91 Room Air 07/12/17 21:17 84 116/70 (85) 92 Room Air 07/12/17 20:29 Room Air 07/12/17 19:27 36.7 88 18 93 2.0 07/12/17 16:25 36.7 88 18 118/68 (85) 93 Room Air 07/12/17 16:00 Room Air 07/12/17 12:00 Room Air Physical Exam Notes: GENERAL: Awake, AOx3, in no distress. HENT: Normocephalic, atraumatic. EYES: Normal conjunctiva. Sclera non-icteric. NECK: Supple. Dialysis port in place on right side RESPIRATORY: Normal chest wall mechanics. Diminished breath sounds, slight crackles in the bases. CARDIAC: Irregularly regular rhythm. Tachycardic. Extremities warm and well perfused. Pulses equal. ABDOMEN: Soft, non-distended. No tenderness to palpation. No rebound or guarding. No masses. GENITOURINARY: Eason draining dark colored urine. EXTREMITIES: Calves supple. Trace pitting edema in lower extremities bilaterally NEURO: Right sided hemiparesis, chronic. SKIN: No rash or jaundice noted. Laboratory Results Results Past 24 Hours Test 07/12/17 12:39 07/12/17 16:28 07/12/17 20:00 07/12/17 20:43 Range/Units Activated Partial Thromboplast Time 34.4 56.5 21.0-31.0 SECONDS Partial Thromboplastin Ratio 1.3 2.2 Bedside Glucose 134 124 70-90 mg/dl Test 07/12/17 21:16 07/13/17 05:46 07/13/17 06:47 07/13/17 11:29 Range/Units Urine Color BROWN Urine Appearance TURBID CLEAR Urine pH 5.5 4.5-7.5 Urine Specific [place] >= 1.030 1.000-1.030 Urine Protein 2+ NEG Urine Glucose (UA) NEG NEG Urine Ketones TRACE NEG Urine Occult Blood 3+ NEG Urine Nitrite NEG NEG Urine Bilirubin NEG NEG Urine Urobilinogen NEG NEG Urine Leukocyte Esterase NEG NEG Urine RBC >30 0-4 /hpf Urine WBC >30 0-5 /hpf Urine Epithelial Cells >30 0-5 /lpf Urine Bacteria 2+ NEG Urine Hyaline Casts 5-10 0-5 /lpf Urine Granular Casts 1-5 0 /lpf White Blood Count 13.65 4.8-10.8 K/uL Red Blood Count 2.87 4.2-5.4 M/uL Hemoglobin 9.3 12.0-16.0 g/dL Hematocrit 28.5 37-47 % Mean Corpuscular Volume 99.3 80-100 fL Mean Corpuscular Hemoglobin 32.4 25-34 pg Mean Corpuscular Hemoglobin Concent 32.6 32-36 g/dl Platelet Count 193 130-400 K/uL Mean Platelet Volume 9.7 7.4-10.4 fL Neutrophils (%) (Auto) 72.1 % Lymphocytes (%) (Auto) 14.1 % Monocytes (%) (Auto) 9.2 % Eosinophils (%) (Auto) 4.2 % Basophils (%) (Auto) 0.1 % Neutrophils # (Auto) 9.82 1.4-6.5 K/uL Lymphocytes # (Auto) 1.93 1.2-3.4 K/uL Monocytes # (Auto) 1.26 0.11-0.59 K/uL Eosinophils # (Auto) 0.58 0-0.5 K/uL Basophils # (Auto) 0.02 0-0.2 K/uL RDW Standard Deviation 48.5 36.4-46.3 fL RDW Coefficient of Variation 13.5 11.5-14.5 % Immature Granulocyte % (Auto) 0.3 % Immature Granulocyte # (Auto) 0.04 0.00-0.02 K/uL Activated Partial Thromboplast Time 42.4 21.0-31.0 SECONDS Partial Thromboplastin Ratio 1.6 Sodium Level 140 136-145 mmol/L Potassium Level 3.7 3.5-5.1 mmol/L Chloride Level 107 98-107 mmol/L Carbon Dioxide Level 24 21-32 mmol/L Anion Gap 9.0 3-11 mmol/L Blood Urea Nitrogen 16 7-18 mg/dl Creatinine 1.64 0.60-1.20 mg/dl Est Creatinine Clear Calc Drug Dose 31.9 ml/min Estimated GFR () 34.8 Estimated GFR (Non- 30.1 BUN/Creatinine Ratio 9.8 10-20 Random Glucose 122 70-99 mg/dl Calcium Level 7.6 8.5-10.1 mg/dl Phosphorus Level 4.2 2.5-4.9 mg/dl Magnesium Level 1.9 1.8-2.4 mg/dl Total Creatine Kinase 56 26-192 U/L Bedside Glucose 132 164 70-90 mg/dl Microbiology Results 07/12/17 Blood Culture, Received Pending 07/12/17 Blood Culture, Received Pending 07/12/17 Urine Culture, Received Pending Assessment and Plan 77 year old female with a past medical history of CVA with right-sided hemiparesis in 2016, HTN, HLD, DM, CKD, and hypothyroidism s/p treatment of thyroid cancer admitted from [facility] with hyperkalemia of 9.1 there. Acute kidney injury on background CKD Stage 2, now CKD 3 Nephrology consulted, recs appreciated. - Worsening creatinine 1.64 today (was 0.93 on 07/10) - Patient oliguric. Restarted small bolus of 1/2 NS IVF. Encourage PO intake of fluids. - Monitor I/O -- output decreasing yesterday evening New onset a.fib/a.flutter - Rate poorly controlled on diltiazem 300mg (home dose) - HR still 130. Increased to Diltiazem 360mg ER starting 07/14/17 - Diltiazem 30mg q6h for today given she already received AM dose Diltiazem 300mg ER - Amiodarone PO 200mg BID discontinued, attempts to convert with amiodarone bolus and drip today - Anticoagulation with heparin - Cardiology consulted - Keep patient on telemetry Urinary tract infection, on background of incontinence 2/2 CVA - Eason Catheter in place - Initial UA showed small leuks, no nitrites, urine culture grew klebsiella pneumoniae and E.coli. Patient started on ceftriaxone - currently day 3 - Repeat UA shows protein and blood, no leuks, no nitrites. Urine culture pending - Trace blood cultures Acute hyperkalemia - resolved Most likely multifactorial 2/2 medication use and worsening kidney function. Nephrology consulted, recs appreciated. S/p dialysis x 2 thus far - Hold home meds: Aldactone, benazepril, and K+ - Maintain neck port for additional dialysis, if warranted, not scheduled as of now Hypomagnesemia - MgO supplement daily, trend Mg+ DMII - Hold home metformin and glipizide - ISS with BSG checks ac/hs Hypothyroidism - Continue levothyroxine daily Hypertension - Hold home benazepril, Aldactone - Continue diltiazem as above History of CVA - Continue heparin drip - Holding home Aspirin - Holding home Tramadol VTE ppx - SCDs - Heparin DO NOT RESUSCITATE Continued [facility] stay due to: multiple IV medications needed Discharge planning: [facility] facility Resident Tracking Resident Involvement: Resident Care Provided Care Provided: Adult Hospital Medicine Assessment/Plan Resident Physician Supervision Note: I was present with Dr. Gill during the history and exam. I discussed the case with the resident and agree with the findings and plan as documented in the note. Any exceptions or clarifications are listed here. Patient complains of improved persistent fatigue. Tolerating amiodarone at present with improved rate. S1/S2 with irregularly/irregular rhythm. Rhonchorous breath sounds b/l without rales. At present, would rebolus and resume IV amio w/ increased PO per cardiology recommendations, increase dilt to 360mg and monitor on telemetry for now. Nephrology consultation aware of oliguria which is persistent and increased Cr.
[2017-07-13] MEDS ORDERED: AMIODARONE / D5W 100 ML IV ONE (11:15)
[2017-07-13] MEDS ORDERED: AMIODARONE / D5W 200 ML IV SCH (11:24)
[2017-07-13 12:06] VITALS: BP 143/57; PULSE 83; TEMP 36.9; O2SAT 94
[2017-07-13] MEDS: DILTIAZEM HCL 30 MG TAB PO SCH ×3 (12:41→23:41)
--- NOTE | 2017-07-13 13:30 | CARDIOLOGY CONSULTATION ---
DATE OF CONSULTATION: 07/13/2017 REQUESTING: Dr. Kenzie Gill. PATIENT FLOW COORDINATOR: Blake Marshall D.O., [facility]. REASON FOR CONSULTATION: Atrial fibrillation with a rapid ventricular response. Dear Dr. Gill, thank you for requesting cardiology consultation on Angelica with regards to her atrial fibrillation with a rapid ventricular response. As you know, she was admitted to [facility] from [facility] secondary to significant hyperkalemia with a potassium of 9.2 and a creatinine of 1.4. PAST MEDICAL HISTORY: Significant for a right-sided stroke in the Fall of 2015 status post TPA for a left MCA stroke. She was transferred to [facility] for potential thrombectomy. She is currently completely paralyzed on the right side and lives in a jail. She needs complete help to even transfer from her bed to a wheelchair and she needs someone to push her in her wheelchair. She received treatment for her acute renal failure and her acute hyperkalemia. She was in the ICU briefly. In the ICU, she went into atrial fibrillation with a rapid ventricular response. She was placed on amiodarone drip. She has transiently converted back to sinus but for the most part has remained in atrial fibrillation with a rapid ventricular response. She has not had any pauses and with conversion to sinus rhythm last evening, there were no significant pauses. She currently denies any chest pain or chest pressure. She denies any palpitations, fluttering or skips, lightheadedness, dizziness, presyncope, syncope. She has no significant lower extremity edema. She is incontinent of urine at her jail and as noted is completely dependent for her care. She previously lived in [place] and now lives in [place] in a jail to be closer to her son. The rest of review of system otherwise negative. PAST MEDICAL HISTORY: 1. Paroxysmal atrial fibrillation. 2. Left MCA stroke February 2016, status post TPA. 3. Hypertension. 4. Hyperlipidemia. 5. Diabetes mellitus type 2. 6. Chronic kidney disease stage II. 7. Hypothyroidism status post treatment for thyroid cancer. SOCIAL HISTORY: She is a lifetime nonsmoker. She currently lives in a jail due to her medical conditions. Family Hx --non contributory ALLERGIES: LATEX, SULFA, CODEINE. OUTPATIENT MEDICATIONS: Reviewed in detail. She was on diltiazem 300 mg daily as well as benazepril. PHYSICAL EXAMINATION: GENERAL: She is awake, alert, oriented x3. She is completely paralyzed on the right side. VITAL SIGNS: Her heart rate is 118, respirations 18, blood pressure 127/88, her sats 91%. NECK: Mildly reduced carotid upstrokes. No evidence of carotid bruits or venous pressure could not be assessed due to a catheter in her neck. HEENT: Her sclerae is anicteric. Her hearing is normal. LUNGS: Clear to auscultation bilaterally. No rales, rhonchi or wheezing. HEART: Irregular rate and rhythm (tachycardic). No appreciable murmurs or rubs. ABDOMEN: Soft, nontender, nondistended. Positive bowel sounds. EXTREMITIES: No clubbing, cyanosis or edema. PSYCHIATRIC: She does appear frustrated appropriately over her medical issues. LABORATORY STUDIES: White count 13.65, platelet count of 193. Sodium 140, potassium 3.7, chloride 107, and CO2 of 24. IMAGING DATA: Chest x-ray from 07/12/2017 - no acute cardiopulmonary findings. Echocardiogram: Mild left ventricular dysfunction, EF in the range of 45-50%. The basal segments appear to contract normally with severe hypokinesis of the entire apex, possibly representing a Takotsubo cardiomyopathy. No significant valvular abnormalities. IMPRESSION: 1. Atrial fibrillation with a rapid ventricular response. 2. 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 3. Hypertension. 4. Hyperlipidemia. 5. 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 I agree with restarting her amiodarone drip. It appears in the medical record that she was just switched to p.o. without a 24-hour overlap between IV and p.o. amiodarone. I would continue her amiodarone in addition diltiazem has been added to her medical regimen. I agree with a 360 mg daily starting tomorrow. I do wonder if her stroke in 2016 was not related to asymptomatic atrial fibrillation as she is completely asymptomatic with it currently and although she presented in what appears to be sinus rhythm at that time, she likely was having aFib. She is currently on a heparin drip and will need to be anticoagulated with a goal INR of 2-3. If her renal function stabilizes then NOAC's could be considered. She has no anginal symptoms or heart failure symptoms. In addition, there have been no pauses when she has been in and out of sinus rhythm, my hope is with amiodarone, she will hopefully convert back to sinus on her own. In addition, I would change the loading dose of her amiodarone orally to 400 mg b.i.d. for the next 3 days and then 400 mg a day thereafter. Thank you for allowing us to participate in her care. NIRANJAN
[2017-07-13 15:27] LABS: PTT PATIENT 50.3 SECONDS (21.0-31.0)
--- NOTE | 2017-07-13 16:13 | Nephrology Progress Note ---
Nephrology Progress Note Date of Service: Jul 13, 2017. Subjective out of icu; on RA, today less cough. no pain but + leg discomfort w/ current position. minimal UOP; on heparin gtt currently Objective Date Time Temp Pulse Resp B/P (MAP) Pulse Ox O2 Delivery O2 Flow Rate FiO2 07/13/17 12:06 36.9 83 18 143/57 (85) 94 07/13/17 12:00 Room Air 07/13/17 08:27 36.6 118 18 127/88 (101) 91 07/13/17 08:20 Room Air 07/13/17 04:00 Room Air 07/13/17 03:14 37.1 83 18 119/57 (77) 91 Room Air 07/12/17 23:59 Room Air 07/12/17 23:40 37.4 78 18 131/60 (83) 91 Room Air 07/12/17 21:17 84 116/70 (85) 92 Room Air 07/12/17 20:29 Room Air 07/12/17 19:27 36.7 88 18 93 2.0 07/12/17 16:25 36.7 88 18 118/68 (85) 93 Room Air 07/12/17 16:00 Room Air Physical Exam: General-in bed on RA, A& O x 3 no cough Eyes-eomi ENT-mmm Neck-supple, R IJ temp cath Lungs-coarse/ diminished Heart-irregular in 80s; trace BL edema Abdomen-steve w/ scant urine; NT, +BS Extremities-trace edema Neuro-R hemiparesis, fluent speech Current Inpatient Medications Medications (Trade) Dose Ordered Sig/Ld Route Start Time Stop Time Status Last Admin Dose Admin Acetaminophen (Tylenol Tab) 650 mg Q4H PRN PO 07/09/17 21:15 08/08/17 21:14 Lorazepam (Ativan Inj) 0.5 mg Q4H PRN IV 07/09/17 21:15 08/08/17 21:14 Glucose (Glucose 40% Gel) 15-30 GRAMS 15 GRAMS... UD PRN PO 07/09/17 22:45 08/08/17 22:44 Glucose (Glucose Chew Tab) 4-8 Tablets 4 Tabl... UD PRN PO 07/09/17 22:45 08/08/17 22:44 Dextrose (Dextrose 50% 50ML Syringe) 25-50ML OF 50% DW IV FOR... UD PRN IV 07/09/17 22:45 08/08/17 22:44 Glucagon (Glucagon Inj) 1 mg UD PRN SQ 07/09/17 22:45 08/08/17 22:44 Multivitamins/ Minerals (Multivitamin W/ Minerals Tab) 1 tab DAILY PO 07/10/17 09:00 08/09/17 08:59 07/13/17 08:34 1 TAB Insulin Aspart (novoLOG ASPART) SLIDING SCALE If C... ACHS SC 07/10/17 21:00 08/09/17 20:59 07/13/17 12:43 6 UNITS Heparin Sodium/ Dextrose 500 ml @ 18 mls/hr Q24H PRN IV 07/10/17 23:45 08/09/17 23:44 07/13/17 08:31 18 MLS/HR Sodium Chloride 1,000 ml @ 100 mls/hr Q10H IV 07/11/17 07:00 08/10/17 06:59 Future Hold 07/12/17 03:45 100 MLS/HR Levothyroxine Sodium (Synthroid Tab) 137 mcg DAILYBB PO 07/12/17 06:00 08/11/17 05:59 07/13/17 05:51 137 MCG Ceftriaxone Sodium 1 gm/ Dextrose 50 ml @ 100 mls/hr Q24H IV 07/11/17 16:00 07/16/17 15:59 07/12/17 17:09 100 MLS/HR Magnesium Oxide (Mag-Ox Tab) 400 mg QAM PO 07/13/17 09:00 08/12/17 08:59 07/13/17 08:34 400 MG Acetaminophen (Tylenol Tab) 500 mg Q4H PRN PO 07/12/17 10:45 08/11/17 10:44 Diltiazem HCl (Cardizem Tab) 30 mg Q6H PO 07/13/17 12:00 08/12/17 11:59 07/13/17 12:41 30 MG Diltiazem HCl (TIAzac CAP) 360 mg QAM PO 07/14/17 09:00 08/13/17 08:59 Amiodarone HCL/ Dextrose 200 ml @ 33.3 mls/hr Q6H1M IV 07/13/17 11:24 07/13/17 17:24 07/13/17 11:49 33.3 MLS/HR Amiodarone HCL/ Dextrose 200 ml @ 16.7 mls/hr [id number] IV 07/13/17 17:24 08/12/17 17:23 Amiodarone HCl (Cordarone Tab) 400 mg BID PO 07/13/17 21:00 08/12/17 20:59 Last 24 Hours Test 07/12/17 16:28 07/12/17 20:00 07/12/17 20:43 07/12/17 21:16 Bedside Glucose 134 mg/dl 124 mg/dl Activated Partial Thromboplast Time 56.5 SECONDS Partial Thromboplastin Ratio 2.2 Urine Color BROWN Urine Appearance TURBID Urine pH 5.5 Urine Specific [place] >= 1.030 Urine Protein 2+ Urine Glucose (UA) NEG Urine Ketones TRACE Urine Occult Blood 3+ Urine Nitrite NEG Urine Bilirubin NEG Urine Urobilinogen NEG Urine Leukocyte Esterase NEG Urine RBC >30 /hpf Urine WBC >30 /hpf Urine Epithelial Cells >30 /lpf Urine Bacteria 2+ Urine Hyaline Casts 5-10 /lpf Urine Granular Casts 1-5 /lpf Test 07/13/17 05:46 07/13/17 06:47 07/13/17 11:29 07/13/17 14:27 White Blood Count 13.65 K/uL Red Blood Count 2.87 M/uL Hemoglobin 9.3 g/dL Hematocrit 28.5 % Mean Corpuscular Volume 99.3 fL Mean Corpuscular Hemoglobin 32.4 pg Mean Corpuscular Hemoglobin Concent 32.6 g/dl Platelet Count 193 K/uL Mean Platelet Volume 9.7 fL Neutrophils (%) (Auto) 72.1 % Lymphocytes (%) (Auto) 14.1 % Monocytes (%) (Auto) 9.2 % Eosinophils (%) (Auto) 4.2 % Basophils (%) (Auto) 0.1 % Neutrophils # (Auto) 9.82 K/uL Lymphocytes # (Auto) 1.93 K/uL Monocytes # (Auto) 1.26 K/uL Eosinophils # (Auto) 0.58 K/uL Basophils # (Auto) 0.02 K/uL RDW Standard Deviation 48.5 fL RDW Coefficient of Variation 13.5 % Immature Granulocyte % (Auto) 0.3 % Immature Granulocyte # (Auto) 0.04 K/uL Activated Partial Thromboplast Time 42.4 SECONDS Partial Thromboplastin Ratio 1.6 Sodium Level 140 mmol/L Potassium Level 3.7 mmol/L Chloride Level 107 mmol/L Carbon Dioxide Level 24 mmol/L Anion Gap 9.0 mmol/L Blood Urea Nitrogen 16 mg/dl Creatinine 1.64 mg/dl Est Creatinine Clear Calc Drug Dose 31.9 ml/min Estimated GFR () 34.8 Estimated GFR (Non- 30.1 BUN/Creatinine Ratio 9.8 Random Glucose 122 mg/dl Calcium Level 7.6 mg/dl Phosphorus Level 4.2 mg/dl Magnesium Level 1.9 mg/dl Total Creatine Kinase 56 U/L Bedside Glucose 132 mg/dl 164 mg/dl Date/Time Source Procedure Growth Status 07/12/17 21:16 Urine,Catheterized Urine Culture - Final THREE TYPES OF ORGANISMS PRESENT, ALL... Complete Assessment & Plan 77 y/o F w/ NIDDM, hx of nephrotic range proteinuria, stroke w/ chronic R hemiparesis, HTN, HL, past urethral sling procedure had N/ V/ malaise worse midday today and sent to ER for eval where labs showed HERMINIO w/ K 9.1 at OSH, 8.2 here. Baseline creatinine 0.6. Severe hyperkalemia on presentation, likely induced by her outpatient medications and complicated by junctional cardiac rhythm at OSH. She needed 2 dialysis treatments to optimize K, which is currently acceptable Borderline oliguric acute renal failure, creatinine more than double her baseline, probably now plateau'd: ischemic ATN -attributed to labile and often lower blood pressures 07/10-07/11 -no volume overload on CXR 07/12 -f/u pending blood cxs (drawn after she has had 1 gm ceftriaxone) >>>>please remove dialysis catheter Hypomagnesemia; resolved on po mag Labile blood pressures most recently 07/11 w/ new onset a fib -CXR clear; IVF were stopped yesterday for ? reason >> will order 1/2 NS 1/2 L Appreciate consult.
[2017-07-13] MEDS: CEFTRIAXONE SOD INJ 1 GM in DEXTROSE 5% ADD-VANTAGE 50ML 50 ML IV SCH (16:22)
[2017-07-13 16:28] VITALS: BP 130/63; PULSE 88; TEMP 37.4; O2SAT 92
[2017-07-13] MEDS: SODIUM CHLORIDE 0.45% 1000ML 500 ML IV SCH ×2 (16:33→22:30)
[2017-07-13] MEDS: AMIODARONE / D5W 200 ML IV SCH (16:36)
[2017-07-13 20:32] VITALS: BP 121/54; PULSE 68; TEMP 37.2; O2SAT 93
[2017-07-13 23:55] VITALS: BP 121/54; PULSE 72; TEMP 37.2; O2SAT 91
[2017-07-14] VITALS (7 sets, daily range): BP systolic 103–136; BP diastolic 56–69; PULSE 65–80; TEMP 36.4–37.4; O2SAT 91–94; Ht 157.5 cm; Wt 98.6 kg
[2017-07-14] MEDS: SODIUM CHLORIDE 0.45% 1000ML 500 ML IV SCH ×2 (05:09→11:51)
[2017-07-14] MEDS: DILTIAZEM HCL 30 MG TAB PO SCH (05:10)
[2017-07-14] MEDS: AMIODARONE / D5W 200 ML IV SCH ×2 (05:10→17:32)
[2017-07-14] MEDS: LEVOTHYROXINE 137 MCG TAB PO SCH (05:11)
[2017-07-14] MEDS ORDERED: NURSING VERBAL MED ORDER ONE (05:45)
--- NOTE | 2017-07-14 07:11 | Family Medicine Progress Note ---
Progress Note Date of Service Jul 14, 2017. Subjective Pt evaluation today including: conversation w/ patient, conversation w/ family , physical exam, chart review, lab review, review of studies, conversation w/ sustainability consultant, review of inpatient medication list Patient well, denies any acute overnight events. She was told she converted to sinus rhythm overnight, but was not aware of when it occurred. She remains asymptomatic of cardiac complaints currently. No chest pain, palpitations, dyspnea or lightheadedness. She saw therapy yesterday, and would like to get out of bed more. She otherwise denies fevers/chills, headaches, abdominal pain, lower extremity swelling or rashes. She describes poor appetite and some nausea with diet. She has Eason in place. ROS is unremarkable except as noted above. Objective Vital Signs Date Time Temp Pulse Resp B/P (MAP) Pulse Ox O2 Delivery O2 Flow Rate FiO2 07/14/17 05:05 65 103/69 (80) 07/14/17 04:00 91 Room Air 07/14/17 03:53 37.2 68 16 125/58 (80) 91 Room Air 07/13/17 23:55 91 Room Air 07/13/17 23:55 37.2 72 16 121/54 (76) 91 Room Air 07/13/17 20:32 37.2 68 20 121/54 (76) 93 07/13/17 19:40 Room Air 07/13/17 16:28 37.4 88 20 130/63 (85) 92 Room Air 07/13/17 15:40 Room Air 07/13/17 12:06 36.9 83 18 143/57 (85) 94 07/13/17 12:00 Room Air 07/13/17 08:27 36.6 118 18 127/88 (101) 91 07/13/17 08:20 Room Air Physical Exam Notes: GENERAL: Awake, AOx3, in no distress. HENT: Normocephalic, atraumatic. EYES: Normal conjunctiva. Sclera non-icteric. NECK: Supple. Dialysis port removed from right neck. Bandage dry. RESPIRATORY: Normal chest wall mechanics. Diminished breath sounds, slight crackles in the bases. CARDIAC: Regular rhythm and rate. Peripheral pulses equal. ABDOMEN: Soft, non-distended. No tenderness to palpation. No rebound or guarding. No masses. GENITOURINARY: Eason draining dark colored urine. EXTREMITIES: Calves supple. Extremities warm and well perfused. Trace pitting edema in lower extremities bilaterally NEURO: Right sided hemiparesis, chronic. Slight drawl to speech secondary to previous stroke. SKIN: No rash or jaundice noted. Laboratory Results Results Past 24 Hours Test 07/13/17 16:19 07/13/17 20:33 07/14/17 06:08 07/14/17 06:47 Range/Units Bedside Glucose 167 151 155 70-90 mg/dl White Blood Count 15.30 4.8-10.8 K/uL Red Blood Count 2.73 4.2-5.4 M/uL Hemoglobin 9.0 12.0-16.0 g/dL Hematocrit 27.1 37-47 % Mean Corpuscular Volume 99.3 80-100 fL Mean Corpuscular Hemoglobin 33.0 25-34 pg Mean Corpuscular Hemoglobin Concent 33.2 32-36 g/dl Platelet Count 208 130-400 K/uL Mean Platelet Volume 9.7 7.4-10.4 fL Neutrophils (%) (Auto) 75.1 % Lymphocytes (%) (Auto) 11.8 % Monocytes (%) (Auto) 8.8 % Eosinophils (%) (Auto) 3.7 % Basophils (%) (Auto) 0.2 % Neutrophils # (Auto) 11.49 1.4-6.5 K/uL Lymphocytes # (Auto) 1.80 1.2-3.4 K/uL Monocytes # (Auto) 1.35 0.11-0.59 K/uL Eosinophils # (Auto) 0.57 0-0.5 K/uL Basophils # (Auto) 0.03 0-0.2 K/uL RDW Standard Deviation 48.6 36.4-46.3 fL RDW Coefficient of Variation 13.6 11.5-14.5 % Immature Granulocyte % (Auto) 0.4 % Immature Granulocyte # (Auto) 0.06 0.00-0.02 K/uL Activated Partial Thromboplast Time 44.2 21.0-31.0 SECONDS Partial Thromboplastin Ratio 1.7 Sodium Level 139 136-145 mmol/L Potassium Level 3.7 3.5-5.1 mmol/L Chloride Level 106 98-107 mmol/L Carbon Dioxide Level 25 21-32 mmol/L Anion Gap 8.0 3-11 mmol/L Blood Urea Nitrogen 18 7-18 mg/dl Creatinine 1.66 0.60-1.20 mg/dl Est Creatinine Clear Calc Drug Dose 32.0 ml/min Estimated GFR () 34.3 Estimated GFR (Non- 29.6 BUN/Creatinine Ratio 10.7 10-20 Random Glucose 142 70-99 mg/dl Calcium Level 7.7 8.5-10.1 mg/dl Phosphorus Level 3.9 2.5-4.9 mg/dl Magnesium Level 1.9 1.8-2.4 mg/dl Test 07/14/17 10:54 07/14/17 14:39 Range/Units Bedside Glucose 153 70-90 mg/dl Activated Partial Thromboplast Time 41.9 21.0-31.0 SECONDS Partial Thromboplastin Ratio 1.6 Assessment and Plan 77 year old female with a past medical history of CVA with right-sided hemiparesis in 2016, HTN, HLD, DM, CKD, and hypothyroidism s/p treatment of thyroid cancer admitted from [facility] with hyperkalemia of 9.1 there. Acute kidney injury on background CKD Stage 2, now CKD 3 Nephrology consulted, recs appreciated. - Stable creatinine 1.66 today (was 0.93 on 07/10) - Patient's oliguria improved with IVF , but no significant improvement in creatinine - ?new baseline. - IVF 1/2 NSS @ 80cc/hr discontinued. Assess hydration status tomorrow to determine if need for further IVF. Encourage PO intake of fluids. - Monitor I/O Paroxysmal a.fib/a.flutter - newly diagnosed Cardiology consulted, recs appreciated. - Diltiazem ER increased to 360mg daily (07/14/17) - Continue Amiodarone PO 400 BID loading dose with IV amiodarone for 24 hours more, then transition to PO amiodarone only with diltiazem - Anticoagulation with heparin, with warfarin 5mg commenced today. Trend INR. Goal INR 2-3. Patient may be a candidate for NOAC once creatinine stabilizes - Keep patient on telemetry Urinary tract infection, on background of incontinence 2/2 CVA - Eason Catheter in place - Initial UA showed small leuks, no nitrites, urine culture grew klebsiella pneumoniae and E.coli. Patient started on ceftriaxone - currently day 4 - Repeat UA shows protein and blood, no leuks, no nitrites. Urine culture shows mixed poonam - Plans to transition to PO Keflex 500mg BID tomorrow Acute hyperkalemia - resolved Most likely multifactorial 2/2 medication use and worsening kidney function. Nephrology consulted, recs appreciated. S/p dialysis x 2. Neck port removed - Hold home meds: Aldactone, benazepril, and K+ Hypomagnesemia - MgO supplement daily, Mg+ levels stable DMII - Hold home metformin and glipizide - ISS with BSG checks ac/hs Hypothyroidism - Continue levothyroxine daily Hypertension - Hold home benazepril, Aldactone - Continue diltiazem as above History of CVA, possibly secondary to asymptomatic paroxysmal a/fib - Continue heparin drip, plus transition to PO anticoagulation as above - Continue Aspirin VTE ppx - SCDs - Heparin Discussed her case at length with daughter Carmel Roca who lives out [place]. She was informed of progress and further management plans, and all questions were answered to her satisfaction. Please call her to update in the next few days. . DO NOT RESUSCITATE Continued [facility] stay due to: other (Arrythmia, not fully controlled) Discharge planning: half-way facility Resident Tracking Resident Involvement: Resident Care Provided Care Provided: Adult Hospital Medicine Assessment/Plan Resident Physician Supervision Note: I was present with Dr. Gill during the history and exam. I discussed the case with the resident and agree with the findings and plan as documented in the note. Any exceptions or clarifications are listed here. Patient complains of improved persistent fatigue, still feeling 'guerline' overall. Tolerating amiodarone at present with improved rate. S1/S2 nl. Rhonchorous breath sounds b/l without rales mildly improved. Transitioning to oral amiodarone (continuing drip through tomorrow), as well as diltiazem 360mg. Improved urine output with elevated creatinine 1.6 stable from previous, bearing repeat in AM.
[2017-07-14 07:16] LABS: BASO % 0.2 %; BASO ABS # 0.03 K/uL (0-0.2); EOS % 3.7 %; EOS ABS # 0.57 K/uL (0-0.5); HEMATOCRIT 27.1 % (37-47); IG# 0.06 K/uL (0.00-0.02); LYMPH % 11.8 %; MEAN CELL VOLUME 99.3 fL (80-100); MEAN CORPUSCULAR HGB CONC 33.2 g/dl (32-36); MEAN PLATELET VOLUME 9.7 fL (7.4-10.4); MONO % 8.8 %; MONO ABS # 1.35 K/uL (0.11-0.59); NEUT % 75.1 %; NEUT ABS # 11.49 K/uL (1.4-6.5); PLATELET COUNT 208 K/uL (130-400); RED CELL DISTRIBUTION WIDTH CV 13.6 % (11.5-14.5); RED CELL DISTRIBUTION WIDTH SD 48.6 fL (36.4-46.3)
[2017-07-14 07:22] LABS: PTT PATIENT 44.2 SECONDS (21.0-31.0)
[2017-07-14] MEDS ORDERED: HEPARIN IV BOLUS 3,000 UNIT in SYRINGE 0 ML IV ONE (07:45)
[2017-07-14 07:54] LABS: CALCIUM 7.7 mg/dl (8.5-10.1); CREATININE 1.66 mg/dl (0.60-1.20); POTASSIUM 3.7 mmol/L (3.5-5.1)
[2017-07-14 07:56] LABS: PHOSPHORUS 3.9 mg/dl (2.5-4.9)
[2017-07-14] MEDS: MAGNESIUM OXIDE 400 MG TAB PO SCH (08:08)
[2017-07-14] MEDS: AMIODARONE 200 MG TAB PO SCH ×2 (08:08→22:39)
[2017-07-14] MEDS: CEROVITE ADV FORMULA TAB PO SCH (08:08)
[2017-07-14] MEDS: DILTIAZEM HCL (TIAzac) 180 MG CAPCR PO SCH (08:08)
[2017-07-14] MEDS: INSULIN ASPART 100 UNITS/ML 3 ML PEN SC SCH ×4 (08:13→21:00)
[2017-07-14] MEDS: HEPARIN 25,000 UNIT/500ML D5W 500 ML IV PRN ×2 (08:14→22:40)
--- NOTE | 2017-07-14 10:29 | Cardiology Follow-Up ---
Subjective General Date of Service: Jul 14, 2017. Pt evaluation today including: conversation w/ patient, chart review, lab review History of Present Illness The patient is a 77 year old female Allergies Coded Allergies: Latex1 -Allergic Contact Dermititis (Verified Allergy, Intermediate, SKIN PEELS, 02/18/16) Sulfa Drugs (Verified Allergy, Intermediate, "SKIN TURNS RED", 02/18/16) Codeine (Verified Adverse Reaction, Mild, MAKES HER SICK, 02/18/16) Social History Smoking Status: Never Smoker Hx Tobacco Use In Past Year?: No Hx Alcohol Use - Type And Amou: No Hx Substance Use - Type And Am: No Problem List Medical Problems: (1) Hypokalemia Status: Acute Review of Systems Respiratory: No shortness of breath, No dyspnea at rest Cardiac: No chest pain, No edema, No palpitations Additional ROS Details: cold Physical Exam Vital Signs Last Vital Signs Documentation Date Time Temp Pulse Resp B/P (MAP) Pulse Ox O2 Delivery O2 Flow Rate FiO2 07/14/17 08:32 36.9 73 22 136/68 (90) 94 Room Air 07/12/17 19:27 2.0 07/11/17 16:00 50 Physical Exam Constitutional: General Apperance: obese Level of Distress: chronically ill Lungs: Respiratory effort: no dyspnea Auscultation: breath sounds normal, no wheezing, no rales/crackles, no rhonchi Cardiovascular: Heart Auscultation: RRR, no murmurs, no rubs, no gallops Abdomen: Bowel Sounds: normal Inspection & Palpation: soft, non-distended, no tenderness, guarding & rebound Extremities: no edema Assessment and Plan Assessment and Plan IMPRESSION: 1. Atrial fibrillation with a rapid ventricular response. 2. 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 3. Hypertension. 4. Hyperlipidemia. 5. 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 As noted in the consult. ?? 2015 stroke secondary to Asymptomatic Afib Converted overnight--24 More hours of PO and IV amio then PO amio with cardizem Watch HR with cardizem BP well controlled Heparin to either coumadin with Goal INR 2-3 or NOAC once [employer] SPECIALIST stabilizes Laboratory Results Last 24 Hours Test 07/13/17 11:29 07/13/17 14:27 07/13/17 16:19 07/13/17 20:33 Bedside Glucose 164 mg/dl 167 mg/dl 151 mg/dl Activated Partial Thromboplast Time 50.3 SECONDS Partial Thromboplastin Ratio 1.9 Test 07/14/17 06:08 07/14/17 06:47 White Blood Count 15.30 K/uL Red Blood Count 2.73 M/uL Hemoglobin 9.0 g/dL Hematocrit 27.1 % Mean Corpuscular Volume 99.3 fL Mean Corpuscular Hemoglobin 33.0 pg Mean Corpuscular Hemoglobin Concent 33.2 g/dl Platelet Count 208 K/uL Mean Platelet Volume 9.7 fL Neutrophils (%) (Auto) 75.1 % Lymphocytes (%) (Auto) 11.8 % Monocytes (%) (Auto) 8.8 % Eosinophils (%) (Auto) 3.7 % Basophils (%) (Auto) 0.2 % Neutrophils # (Auto) 11.49 K/uL Lymphocytes # (Auto) 1.80 K/uL Monocytes # (Auto) 1.35 K/uL Eosinophils # (Auto) 0.57 K/uL Basophils # (Auto) 0.03 K/uL RDW Standard Deviation 48.6 fL RDW Coefficient of Variation 13.6 % Immature Granulocyte % (Auto) 0.4 % Immature Granulocyte # (Auto) 0.06 K/uL Activated Partial Thromboplast Time 44.2 SECONDS Partial Thromboplastin Ratio 1.7 Sodium Level 139 mmol/L Potassium Level 3.7 mmol/L Chloride Level 106 mmol/L Carbon Dioxide Level 25 mmol/L Anion Gap 8.0 mmol/L Blood Urea Nitrogen 18 mg/dl Creatinine 1.66 mg/dl Est Creatinine Clear Calc Drug Dose 32.0 ml/min Estimated GFR () 34.3 Estimated GFR (Non- 29.6 BUN/Creatinine Ratio 10.7 Random Glucose 142 mg/dl Calcium Level 7.7 mg/dl Phosphorus Level 3.9 mg/dl Magnesium Level 1.9 mg/dl Bedside Glucose 155 mg/dl
[2017-07-14 15:12] LABS: PTT PATIENT 41.9 SECONDS (21.0-31.0)
[2017-07-14] MEDS: CEFTRIAXONE SOD INJ 1 GM in DEXTROSE 5% ADD-VANTAGE 50ML 50 ML IV SCH (15:54)
[2017-07-14] MEDS: WARFARIN SOD 5 MG TAB PO SCH (15:54)
[2017-07-14] MEDS: ACETAMINOPHEN 325 MG TAB PO PRN (17:36)
[2017-07-14 23:36] LABS: PTT PATIENT 44.3 SECONDS (21.0-31.0)
[2017-07-15 00:07] VITALS: BP 119/67; PULSE 80; TEMP 37.6; O2SAT 91
[2017-07-15] MEDS ORDERED: HEPARIN IV BOLUS 3,000 UNIT in SYRINGE 0 ML IV ONE (00:15)
[2017-07-15] MEDS: LEVOTHYROXINE 137 MCG TAB PO SCH (06:09)
[2017-07-15] MEDS: AMIODARONE / D5W 200 ML IV SCH (06:10)
[2017-07-15 07:14] LABS: HEMATOCRIT 28.5 % (37-47); HEMOGLOBIN 9.6 g/dL (12.0-16.0); MEAN CELL VOLUME 97.6 fL (80-100); MEAN CORPUSCULAR HEMOGLOBIN 32.9 pg (25-34); MEAN CORPUSCULAR HGB CONC 33.7 g/dl (32-36); MEAN PLATELET VOLUME 9.4 fL (7.4-10.4); PLATELET COUNT 247 K/uL (130-400); RED CELL DISTRIBUTION WIDTH CV 13.4 % (11.5-14.5); RED CELL DISTRIBUTION WIDTH SD 47.4 fL (36.4-46.3)
[2017-07-15 07:20] VITALS: BP 138/71; PULSE 77; TEMP 37.7; O2SAT 92
[2017-07-15 07:28] LABS: PTT PATIENT 61.3 SECONDS (21.0-31.0)
[2017-07-15 07:29] LABS: INR 1.2 (0.9-1.1)
[2017-07-15 07:39] LABS: CALCIUM 7.5 mg/dl (8.5-10.1); CREATININE 1.46 mg/dl (0.60-1.20); POTASSIUM 3.6 mmol/L (3.5-5.1)
--- NOTE | 2017-07-15 07:54 | Family Medicine Progress Note ---
Progress Note Date of Service Jul 15, 2017. Subjective Pt evaluation today including: conversation w/ patient Voiding: steve catheter in place Angelica did not feel well today. Reports she was nauseated this morning when her breakfast came and that made her throw up. She has not had a BM in about a week , while previously used to go every 2-3 days. At baseline she wears adult diapers and is incontinent of stool and urine, which she reports is since her stroke. She has a steve in place. She feels weak. She denies any pain, swelling , new bleeding or bruising, or other concerns. PM Update: Left a voicemail for her daughter to call us back. Her son was in the room and I updated him on her hospital course. He says the nausea has been persistent since before going to [facility] and was the reason she was sent there from [facility]. The pt reports her bowels have moved today. Constitutional: + weakness, No fever, No chills, No sweats ENT: No hearing loss Respiratory: No cough, No sputum Skin: No rash All Other Systems: Reviewed and Negative Medications Current Inpatient Medications Medications (Trade) Dose Ordered Sig/Ld Route Start Time Stop Time Status Last Admin Dose Admin Acetaminophen (Tylenol Tab) 650 mg Q4H PRN PO 07/09/17 21:15 08/08/17 21:14 07/14/17 17:36 650 MG Lorazepam (Ativan Inj) 0.5 mg Q4H PRN IV 07/09/17 21:15 08/08/17 21:14 Glucose (Glucose 40% Gel) 15-30 GRAMS 15 GRAMS... UD PRN PO 07/09/17 22:45 08/08/17 22:44 Glucose (Glucose Chew Tab) 4-8 Tablets 4 Tabl... UD PRN PO 07/09/17 22:45 08/08/17 22:44 Dextrose (Dextrose 50% 50ML Syringe) 25-50ML OF 50% DW IV FOR... UD PRN IV 07/09/17 22:45 08/08/17 22:44 Glucagon (Glucagon Inj) 1 mg UD PRN SQ 07/09/17 22:45 08/08/17 22:44 Multivitamins/ Minerals (Multivitamin W/ Minerals Tab) 1 tab DAILY PO 07/10/17 09:00 08/09/17 08:59 07/14/17 08:08 1 TAB Insulin Aspart (novoLOG ASPART) SLIDING SCALE If C... ACHS SC 07/10/17 21:00 08/09/17 20:59 07/14/17 17:32 3 UNITS Heparin Sodium/ Dextrose 500 ml @ 20 mls/hr Q24H PRN IV 07/10/17 23:45 08/09/17 23:44 07/14/17 22:40 19 MLS/HR Sodium Chloride 1,000 ml @ 100 mls/hr Q10H IV 07/11/17 07:00 08/10/17 06:59 Future Hold 07/12/17 03:45 100 MLS/HR Levothyroxine Sodium (Synthroid Tab) 137 mcg DAILYBB PO 07/12/17 06:00 08/11/17 05:59 07/15/17 06:09 137 MCG Magnesium Oxide (Mag-Ox Tab) 400 mg QAM PO 07/13/17 09:00 08/12/17 08:59 07/14/17 08:08 400 MG Acetaminophen (Tylenol Tab) 500 mg Q4H PRN PO 07/12/17 10:45 08/11/17 10:44 Diltiazem HCl (TIAzac CAP) 360 mg QAM PO 07/14/17 09:00 08/13/17 08:59 07/14/17 08:08 360 MG Amiodarone HCL/ Dextrose 200 ml @ 16.7 mls/hr [id number] IV 07/13/17 17:24 08/12/17 17:23 07/15/17 06:10 16.7 MLS/HR Amiodarone HCl (Cordarone Tab) 400 mg BID PO 07/13/17 21:00 08/12/17 20:59 07/14/17 22:39 400 MG Enteral Nutritional Formula (Boost Glucose Control) 1 can DAILY PO 07/15/17 09:00 08/14/17 08:59 Warfarin Sodium (Coumadin Tab) 5 mg DAILY@16 PO 07/14/17 16:00 08/13/17 15:59 07/14/17 15:54 5 MG Cephalexin Monohydrate (Keflex Cap) 500 mg BID PO 07/15/17 09:00 07/17/17 08:59 Aspirin (Aspirin Chew) 81 mg DAILY PO 07/15/17 09:00 08/14/17 08:59 Objective Vital Signs Date Time Temp Pulse Resp B/P (MAP) Pulse Ox O2 Delivery O2 Flow Rate FiO2 07/15/17 04:00 Room Air 07/15/17 00:07 37.6 80 18 119/67 (84) 91 Room Air 07/14/17 23:59 Room Air 07/14/17 20:37 36.7 68 20 132/68 (89) 92 Room Air 07/14/17 20:00 Room Air 07/14/17 16:28 36.4 80 20 128/66 (86) 92 Room Air 07/14/17 16:15 Room Air 07/14/17 12:39 37.4 72 20 119/56 (77) 91 Room Air 07/14/17 12:20 Room Air 07/14/17 08:32 36.9 73 22 136/68 (90) 94 Room Air 07/14/17 08:20 Room Air Physical Exam General Appearance: WD/WN, no apparent distress Eyes: normal inspection, PERRL ENT: hearing grossly normal Neck: supple, no JVD Respiratory/Chest: lungs clear, normal breath sounds, no respiratory distress Cardiovascular: regular rate, rhythm, no murmur Abdomen: normal bowel sounds, non tender, soft, + distended Extremities: non-tender, normal inspection, no pedal edema, no calf tenderness , + pertinent finding (R sided hemiplegia) Neurologic/Psychiatric: alert, normal mood/affect, oriented x 3 Skin: no rash Laboratory Results Last 24 Hours Test 07/14/17 10:54 07/14/17 14:39 07/14/17 16:27 07/14/17 20:38 Bedside Glucose 153 mg/dl 174 mg/dl 137 mg/dl Activated Partial Thromboplast Time 41.9 SECONDS Partial Thromboplastin Ratio 1.6 Test 07/14/17 23:07 07/15/17 06:48 07/15/17 06:51 Activated Partial Thromboplast Time 44.3 SECONDS 61.3 SECONDS Partial Thromboplastin Ratio 1.7 2.4 White Blood Count 19.50 K/uL Red Blood Count 2.92 M/uL Hemoglobin 9.6 g/dL Hematocrit 28.5 % Mean Corpuscular Volume 97.6 fL Mean Corpuscular Hemoglobin 32.9 pg Mean Corpuscular Hemoglobin Concent 33.7 g/dl RDW Standard Deviation 47.4 fL RDW Coefficient of Variation 13.4 % Platelet Count 247 K/uL Mean Platelet Volume 9.4 fL Prothrombin Time 12.5 SECONDS Prothromb Time International Ratio 1.2 Sodium Level 137 mmol/L Potassium Level 3.6 mmol/L Chloride Level 104 mmol/L Carbon Dioxide Level 23 mmol/L Anion Gap 10.0 mmol/L Blood Urea Nitrogen 21 mg/dl Creatinine 1.46 mg/dl Est Creatinine Clear Calc Drug Dose 36.7 ml/min Estimated GFR () 40.1 Estimated GFR (Non- 34.6 BUN/Creatinine Ratio 14.5 Random Glucose 152 mg/dl Calcium Level 7.5 mg/dl Bedside Glucose 157 mg/dl Assessment and Plan Mrs Roca is a 77 yo F, on day 7 of admission for paroxysmal atrial fibrillation, HERMINIO, hyperkalemia, and now has nausea. Nausea - No further Zofran due to QTc prolongation - Reglan provided, if needs anything overnight, provide Compazine or Phenergan - DDx: Amiodarone loading dose-related vs constipation Paroxysmal atrial fibrillation - Switched to PO Amiodarone and Diltiazem today - Will add Beta grace for further rate control - Anticoagulated with heparin drip & Coumadin, hopefully can switch to NOAC as renal fxn improves Urinary tract infection - At baseline, is incontinent of urine and stool into her diaper due to CVA. Currently has Steve. - Urine shows Klebsiella and E Coli UTI - Discussed w/Pharmacy. Will avoid Levaquin due to prolonged QTc. Will switch back to Ceftriaxone IV today and reassess tomorrow. Leukocytosis - Continue to monitor for other signs of infection. - CXR was obtained today, appears WNL - If spikes further fevers, will obtain cultures Prolonged QTc - Magnesium IV provided today - Recheck EKG tomorrow Hyperkalemia, resolved - Had dialysis x 2 while in the ICU through neck port (removed) - Home meds on hold: Aldactone, Benazepril, and K+ Supplementation Type II Diabetes Mellitus - Metformin and Glipizide on hold - Insulin sliding scale - BSG AC and HS Hypothyroidism - Continue levothyroxine daily Hypertension - Hold home benazepril, Aldactone - Continue diltiazem as above History of CVA, possibly secondary to asymptomatic paroxysmal a/fib - Continue heparin drip, plus transition to PO anticoagulation as above - Continue Aspirin VTE: Heparin drip, SCDs [facility] Code status: DNR Updated son today in person as per HPI. D[place]: [place] . Resident Physician Supervision Note: I interviewed and examined the patient. Discussed with Dr. Nicholson and agree with findings and plan as documented in the note. Any exceptions or clarifications are listed here: None As mentioned the pt had some nausea today, she also has significant constipation. She continued to bounce in and out of afib and cardiology is adjusting rate controlling medications. vitals show rates up to 120 at times in afib, blood pressure is lower but acceptable car is irregularly irregular, lungs are with some decrease at bases that improved with deep inspiration Atrial fibrillation with RVR, Herminio resolving, and dm, concern for UTI poa, klebsiella and E coli, attempts to rate control afib with amiodarone and diltiazem and full anticoagulation uti is treated with IV ceftriaxone Documented By: Byron Ochoa Resident Tracking Resident Involvement: Resident Care Provided Care Provided: Adult Hospital Medicine
[2017-07-15] MEDS ORDERED: ONDANSETRON 4 MG TAB PO PRN (08:00)
[2017-07-15] MEDS ORDERED: LACTULOSE SYRUP 30 GM/45 ML UDP PO PRN (08:00)
--- NOTE | 2017-07-15 08:47 | Cardiology Follow-Up ---
Subjective General Date of Service: Jul 15, 2017. Pt evaluation today including: conversation w/ patient, chart review, lab review History of Present Illness The patient is a 77 year old female Allergies Coded Allergies: Latex1 -Allergic Contact Dermititis (Verified Allergy, Intermediate, SKIN PEELS, 02/18/16) Sulfa Antibiotics (Verified Allergy, Unknown, "SKIN TURNS RED", 07/14/17) Codeine (Verified Adverse Reaction, Mild, MAKES HER SICK, 02/18/16) Social History Smoking Status: Never Smoker Hx Tobacco Use In Past Year?: No Hx Alcohol Use - Type And Amou: No Hx Substance Use - Type And Am: No Problem List Medical Problems: (1) Hypokalemia Status: Acute Review of Systems Respiratory: No cough, No shortness of breath, No dyspnea at rest Cardiac: No chest pain, No edema, No palpitations Additional ROS Details: Nauseated this am Physical Exam Vital Signs Last Vital Signs Documentation Date Time Temp Pulse Resp B/P (MAP) Pulse Ox O2 Delivery O2 Flow Rate FiO2 07/15/17 07:20 37.7 77 18 138/71 (93) 92 Room Air 07/12/17 19:27 2.0 07/11/17 16:00 50 Physical Exam Constitutional: General Apperance: obese Level of Distress: chronically ill Lungs: Respiratory effort: no dyspnea Auscultation: breath sounds normal, no wheezing, no rales/crackles, no rhonchi Cardiovascular: Heart Auscultation: RRR, no murmurs, no rubs, no gallops Abdomen: Bowel Sounds: normal Inspection & Palpation: soft, non-distended, no tenderness, guarding & rebound Extremities: no edema Assessment and Plan Assessment and Plan IMPRESSION: 1. Atrial fibrillation with a rapid ventricular response. 2. 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 3. Hypertension. 4. Hyperlipidemia. 5. 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 As noted in the consult. ?? 2015 stroke secondary to Asymptomatic Afib Just after seeing patient she went back into Afib w/ RVR 24; continue IV amio then PO amio with cardizem Stat 12 lead EKG--ST depression on monitor just to r/o ACS BP well controlled Heparin to either coumadin with Goal INR 2-3 or NOAC once CHEMICAL INSTRUMENTATION OFFICER stabilizes Laboratory Results Last 24 Hours Test 07/14/17 10:54 07/14/17 14:39 07/14/17 16:27 07/14/17 20:38 Bedside Glucose 153 mg/dl 174 mg/dl 137 mg/dl Activated Partial Thromboplast Time 41.9 SECONDS Partial Thromboplastin Ratio 1.6 Test 07/14/17 23:07 07/15/17 06:48 07/15/17 06:51 Activated Partial Thromboplast Time 44.3 SECONDS 61.3 SECONDS Partial Thromboplastin Ratio 1.7 2.4 White Blood Count 19.50 K/uL Red Blood Count 2.92 M/uL Hemoglobin 9.6 g/dL Hematocrit 28.5 % Mean Corpuscular Volume 97.6 fL Mean Corpuscular Hemoglobin 32.9 pg Mean Corpuscular Hemoglobin Concent 33.7 g/dl RDW Standard Deviation 47.4 fL RDW Coefficient of Variation 13.4 % Platelet Count 247 K/uL Mean Platelet Volume 9.4 fL Prothrombin Time 12.5 SECONDS Prothromb Time International Ratio 1.2 Sodium Level 137 mmol/L Potassium Level 3.6 mmol/L Chloride Level 104 mmol/L Carbon Dioxide Level 23 mmol/L Anion Gap 10.0 mmol/L Blood Urea Nitrogen 21 mg/dl Creatinine 1.46 mg/dl Est Creatinine Clear Calc Drug Dose 36.7 ml/min Estimated GFR () 40.1 Estimated GFR (Non- 34.6 BUN/Creatinine Ratio 14.5 Random Glucose 152 mg/dl Calcium Level 7.5 mg/dl Bedside Glucose 157 mg/dl
[2017-07-15] MEDS ORDERED: CEPHALEXIN MONOHYDRATE 500 MG CAP PO SCH (09:00)
[2017-07-15] MEDS ORDERED: ONDANSETRON INJ 2 MG/ML 2 ML VIAL IV PRN (09:00)
[2017-07-15] MEDS ORDERED: ACETAMINOPHEN IV 650 MG in EMPTY BAG 0 ML IV PRN (09:00)
[2017-07-15] MEDS: INSULIN ASPART 100 UNITS/ML 3 ML PEN SC SCH ×4 (09:09→20:59)
[2017-07-15] MEDS ORDERED: ONDANSETRON INJ 2 MG/ML 2 ML VIAL IV ONE (09:15)
--- NOTE | 2017-07-15 09:39 | DIAGNOSTIC IMAGING REPORT ---
CHEST ONE VIEW PORTABLE CLINICAL HISTORY: 77 years-old Female presenting with ?aspiration. TECHNIQUE: Portable upright AP view of the chest was obtained. COMPARISON: 07/12/2017. FINDINGS: Atherosclerosis of aortic arch. Tortuosity of the descending thoracic aorta. Cardiac silhouette enlarged. Mildly low lung volumes with hypoventilatory changes. Slight obscuration of the hemidiaphragms, left greater than right. No other focal opacity. No large effusion or pneumothorax. Degenerative changes of the thoracic spine. Degenerative changes of the bilateral glenohumeral joints. External leads overlie the right upper quadrant degrading evaluation. IMPRESSION: 1. Minimal vague bibasilar opacities greater on the left, which could represent atelectasis or aspiration. Mildly low lung volumes. Electronically signed by: Shashi Odonnell M.D. 07/15/2017 9:37 AM Dictated Date/Time: 07/15/2017 9:36 AM
[2017-07-15] MEDS: METOCLOPRAMIDE HCL INJ 5 MG/ML 2 ML VIAL IV. SCH ×3 (10:25→21:37)
[2017-07-15] MEDS: AMIODARONE 200 MG TAB PO SCH ×2 (10:25→21:36)
[2017-07-15] MEDS: SENNA 8.6 MG TAB PO SCH (10:25)
[2017-07-15] MEDS: CEROVITE ADV FORMULA TAB PO SCH (10:25)
[2017-07-15] MEDS: MAGNESIUM OXIDE 400 MG TAB PO SCH (10:26)
[2017-07-15] MEDS: ASPIRIN 81 MG CHEW PO SCH (10:26)
[2017-07-15] MEDS: BOOST GLUCOSE CONTROL PO SCH (10:26)
[2017-07-15] MEDS: DILTIAZEM HCL (TIAzac) 180 MG CAPCR PO SCH (10:26)
[2017-07-15 11:25] VITALS: BP 107/65; PULSE 106; TEMP 37.2; O2SAT 91
[2017-07-15] MEDS ORDERED: MAGNESIUM SULFATE 1GM / D5W 1 GM in PREMIXED IN D5W 100 ML IV ONE (12:15)
[2017-07-15] MEDS ORDERED: GLYCERIN ADULT SUPP 12 EA SUPP PR PRN (13:30)
[2017-07-15] MEDS ORDERED: CEFTRIAXONE SOD INJ 1 GM in DEXTROSE 5% ADD-VANTAGE 50ML 50 ML IV SCH (14:30)
[2017-07-15 16:00] VITALS: BP 151/72; PULSE 68; TEMP 37.1; O2SAT 92
[2017-07-15] MEDS: WARFARIN SOD 5 MG TAB PO SCH (17:30)
[2017-07-15] MEDS ORDERED: PROCHLORPERAZINE INJ 5 MG in SYRINGE 4 ML IV PRN (18:30)
--- NOTE | 2017-07-15 19:12 | Nephrology Progress Note ---
Nephrology Progress Note Date of Service: Jul 15, 2017. Subjective on RA, some c/o being on liquids - claims she can't stay hydrated. cont to state she can't find a comfortable spot. still w/ borderline UOP; remains on heparin gtt currently Objective Date Time Temp Pulse Resp B/P (MAP) Pulse Ox O2 Delivery O2 Flow Rate FiO2 07/15/17 16:00 37.1 68 22 151/72 (98) 92 Room Air 07/15/17 16:00 Room Air 07/15/17 12:00 Room Air 07/15/17 11:25 37.2 106 28 107/65 (79) 91 Room Air 07/15/17 08:00 Room Air 07/15/17 07:20 37.7 77 18 138/71 (93) 92 Room Air 07/15/17 04:00 Room Air 07/15/17 00:07 37.6 80 18 119/67 (84) 91 Room Air 07/14/17 23:59 Room Air 07/14/17 20:37 36.7 68 20 132/68 (89) 92 Room Air 07/14/17 20:00 Room Air Physical Exam: General-in bed on RA, A& O x 3 no cough Eyes-eomi ENT-mmm Neck-supple, R IJ temp cath Lungs-coarse/ diminished Heart-irregular in 80s; trace BL edema Abdomen-steve w/ scant urine; NT, +BS Extremities-trace edema Neuro-R hemiparesis, fluent speech Current Inpatient Medications Medications (Trade) Dose Ordered Sig/Ld Route Start Time Stop Time Status Last Admin Dose Admin Acetaminophen (Tylenol Tab) 650 mg Q4H PRN PO 07/09/17 21:15 08/08/17 21:14 07/14/17 17:36 650 MG Glucose (Glucose 40% Gel) 15-30 GRAMS 15 GRAMS... UD PRN PO 07/09/17 22:45 08/08/17 22:44 Glucose (Glucose Chew Tab) 4-8 Tablets 4 Tabl... UD PRN PO 07/09/17 22:45 08/08/17 22:44 Dextrose (Dextrose 50% 50ML Syringe) 25-50ML OF 50% DW IV FOR... UD PRN IV 07/09/17 22:45 08/08/17 22:44 Glucagon (Glucagon Inj) 1 mg UD PRN SQ 07/09/17 22:45 08/08/17 22:44 Multivitamins/ Minerals (Multivitamin W/ Minerals Tab) 1 tab DAILY PO 07/10/17 09:00 08/09/17 08:59 07/15/17 10:25 1 TAB Insulin Aspart (novoLOG ASPART) SLIDING SCALE If C... ACHS SC 07/10/17 21:00 08/09/17 20:59 07/15/17 12:32 2 UNITS Heparin Sodium/ Dextrose 500 ml @ 20 mls/hr Q24H PRN IV 07/10/17 23:45 08/09/17 23:44 07/14/17 22:40 19 MLS/HR Sodium Chloride 1,000 ml @ 100 mls/hr Q10H IV 07/11/17 07:00 08/10/17 06:59 Future Hold 07/12/17 03:45 100 MLS/HR Levothyroxine Sodium (Synthroid Tab) 137 mcg DAILYBB PO 07/12/17 06:00 08/11/17 05:59 07/15/17 06:09 137 MCG Magnesium Oxide (Mag-Ox Tab) 400 mg QAM PO 07/13/17 09:00 08/12/17 08:59 07/15/17 10:26 400 MG Acetaminophen (Tylenol Tab) 500 mg Q4H PRN PO 07/12/17 10:45 08/11/17 10:44 Diltiazem HCl (TIAzac CAP) 360 mg QAM PO 07/14/17 09:00 08/13/17 08:59 07/15/17 10:26 360 MG Enteral Nutritional Formula (Boost Glucose Control) 1 can DAILY PO 07/15/17 09:00 08/14/17 08:59 Warfarin Sodium (Coumadin Tab) 5 mg DAILY@16 PO 07/14/17 16:00 08/13/17 15:59 07/15/17 17:30 5 MG Aspirin (Aspirin Chew) 81 mg DAILY PO 07/15/17 09:00 08/14/17 08:59 07/15/17 10:26 81 MG Senna (Senokot Tab) 17.2 mg QAM PO 07/15/17 09:00 08/14/17 08:59 07/15/17 10:25 17.2 MG Ondansetron HCl (Zofran Tab) 4 mg Q6H PRN PO 07/15/17 08:00 08/14/17 07:59 Lactulose (Chronulac Syrup) 30 gm Q6HWA PRN PO 07/15/17 08:00 08/14/17 07:59 07/15/17 09:35 30 GM Acetaminophen 650 mg/Empty Bag 65 ml @ 260 mls/hr Q6H PRN IV 07/15/17 09:00 08/14/17 08:59 07/15/17 09:30 260 MLS/HR Potassium Chloride (Klor-Con M10) 20 meq BID PO 07/15/17 21:00 07/16/17 09:01 Amiodarone HCl (Cordarone Tab) 200 mg BID PO 07/15/17 09:45 08/12/17 09:44 07/15/17 10:25 200 MG Metoclopramide HCl (Reglan Inj) 10 mg Q6H IV. 07/15/17 10:00 08/14/17 09:59 07/15/17 17:28 10 MG Glycerin (Glycerin Adult Supp) 1 ea Q4H PRN NE 07/15/17 13:30 08/14/17 13:29 Metoprolol Tartrate (Lopressor Tab) 12.5 mg BID PO 07/15/17 21:00 08/14/17 20:59 Ceftriaxone Sodium 1 gm/ Dextrose 50 ml @ 100 mls/hr Q24H IV 07/15/17 14:30 07/17/17 14:29 07/15/17 14:28 100 MLS/HR Prochlorperazine Edisylate 5 mg/ Syringe 5 ml @ 5 mls/min Q6H PRN IV 07/15/17 18:30 08/14/17 18:29 Last 24 Hours Test 07/14/17 20:38 07/14/17 23:07 07/15/17 06:48 07/15/17 06:51 Bedside Glucose 137 mg/dl 157 mg/dl Activated Partial Thromboplast Time 44.3 SECONDS 61.3 SECONDS Partial Thromboplastin Ratio 1.7 2.4 White Blood Count 19.50 K/uL Red Blood Count 2.92 M/uL Hemoglobin 9.6 g/dL Hematocrit 28.5 % Mean Corpuscular Volume 97.6 fL Mean Corpuscular Hemoglobin 32.9 pg Mean Corpuscular Hemoglobin Concent 33.7 g/dl RDW Standard Deviation 47.4 fL RDW Coefficient of Variation 13.4 % Platelet Count 247 K/uL Mean Platelet Volume 9.4 fL Prothrombin Time 12.5 SECONDS Prothromb Time International Ratio 1.2 Sodium Level 137 mmol/L Potassium Level 3.6 mmol/L Chloride Level 104 mmol/L Carbon Dioxide Level 23 mmol/L Anion Gap 10.0 mmol/L Blood Urea Nitrogen 21 mg/dl Creatinine 1.46 mg/dl Est Creatinine Clear Calc Drug Dose 36.7 ml/min Estimated GFR () 40.1 Estimated GFR (Non- 34.6 BUN/Creatinine Ratio 14.5 Random Glucose 152 mg/dl Calcium Level 7.5 mg/dl Magnesium Level 1.9 mg/dl Test 07/15/17 11:04 07/15/17 16:26 Bedside Glucose 202 mg/dl 167 mg/dl Assessment & Plan 77 y/o F w/ NIDDM, hx of nephrotic range proteinuria, stroke w/ chronic R hemiparesis, HTN, HL, past urethral sling procedure had N/ V/ malaise worse midday today and sent to ER for eval where labs showed HERMINIO w/ K 9.1 at OSH, 8.2 here. Baseline creatinine 0.6. Severe hyperkalemia on presentation, likely induced by her outpatient medications and complicated by junctional cardiac rhythm at OSH. She needed 2 dialysis treatments to optimize K, which is currently acceptable Borderline oliguric acute renal failure, creatinine more than double her baseline, remains plateau'd: ischemic ATN -attributed to labile and often lower blood pressures 07/10-07/11 -on lasix/spironolactone as outpt - IV lasix prn only at this point -daily bmp -consider steve removal if clinically indicated for infection or other concerns ; ideally would keep it longer though Mild LV dysfunction > ? Takotsubo [employer]ENT MET[employer] TESTS Hypomagnesemia; resolved on po mag Labile blood pressures most recently 07/11 w/ new onset a fib -on heparin gtt and coumadin -bp have been less labile past 48-72 hrs Abtx > for UTI +/- aspiration; tmax this am 37.7; on thickened liquids; blood cxs negative; does have steve Appreciate consult.
[2017-07-15 20:24] VITALS: BP 132/52; PULSE 72; TEMP 36.4; O2SAT 96
[2017-07-15] MEDS: METOPROLOL TARTRATE 25 MG TAB PO SCH (21:36)
[2017-07-15] MEDS: POTASSIUM CHLORIDE 10 MEQ TABCR PO SCH (21:37)
[2017-07-16] VITALS (8 sets, daily range): BP systolic 107–143; BP diastolic 44–68; PULSE 64–81; TEMP 36.5–38; O2SAT 95–99
[2017-07-16] MEDS: HEPARIN 25,000 UNIT/500ML D5W 500 ML IV PRN (01:33)
[2017-07-16] MEDS: ACETAMINOPHEN 325 MG TAB PO PRN (04:34)
[2017-07-16] MEDS: METOCLOPRAMIDE HCL INJ 5 MG/ML 2 ML VIAL IV. SCH ×4 (04:34→19:28)
[2017-07-16] MEDS: LEVOTHYROXINE 137 MCG TAB PO SCH (06:05)
[2017-07-16 06:43] LABS: HEMATOCRIT 25.4 % (37-47); HEMOGLOBIN 8.5 g/dL (12.0-16.0); MEAN CELL VOLUME 98.8 fL (80-100); MEAN CORPUSCULAR HEMOGLOBIN 33.1 pg (25-34); MEAN CORPUSCULAR HGB CONC 33.5 g/dl (32-36); MEAN PLATELET VOLUME 9.5 fL (7.4-10.4); PLATELET COUNT 245 K/uL (130-400); RED CELL DISTRIBUTION WIDTH CV 13.3 % (11.5-14.5); RED CELL DISTRIBUTION WIDTH SD 47.7 fL (36.4-46.3); WHITE BLOOD COUNT 20.52 K/uL (4.8-10.8)
[2017-07-16 06:57] LABS: PTT PATIENT 64.1 SECONDS (21.0-31.0)
[2017-07-16 07:42] LABS: ALBUMIN 1.7 gm/dl (3.4-5.0); CALCIUM 7.2 mg/dl (8.5-10.1); CREATININE 1.7 mg/dl (0.60-1.20); POTASSIUM 3.1 mmol/L (3.5-5.1)
[2017-07-16 07:45] LABS: TOTAL PROTEIN 4.9 gm/dl (6.4-8.2)
[2017-07-16] MEDS: DILTIAZEM HCL (TIAzac) 180 MG CAPCR PO SCH (08:09)
[2017-07-16] MEDS: AMIODARONE 200 MG TAB PO SCH ×2 (08:10→19:17)
[2017-07-16] MEDS: INSULIN ASPART 100 UNITS/ML 3 ML PEN SC SCH ×4 (08:16→20:18)
[2017-07-16] MEDS: METOPROLOL TARTRATE 25 MG TAB PO SCH ×2 (08:16→19:17)
--- NOTE | 2017-07-16 08:38 | Cardiology Follow-Up ---
Subjective General Date of Service: Jul 16, 2017. Pt evaluation today including: conversation w/ patient, chart review, lab review, review of studies History of Present Illness The patient is a 77 year old female Allergies Coded Allergies: Latex1 -Allergic Contact Dermititis (Verified Allergy, Intermediate, SKIN PEELS, 02/18/16) Sulfa Antibiotics (Verified Allergy, Unknown, "SKIN TURNS RED", 07/14/17) Codeine (Verified Adverse Reaction, Mild, MAKES HER SICK, 02/18/16) Social History Smoking Status: Never Smoker Hx Tobacco Use In Past Year?: No Hx Alcohol Use - Type And Amou: No Hx Substance Use - Type And Am: No Problem List Medical Problems: (1) Hypokalemia Status: Acute Review of Systems Respiratory: + cough, No shortness of breath, No dyspnea at rest Cardiac: No chest pain, No edema, No palpitations Physical Exam Vital Signs Last Vital Signs Documentation Date Time Temp Pulse Resp B/P (MAP) Pulse Ox O2 Delivery O2 Flow Rate FiO2 07/16/17 07:05 36.6 80 28 107/49 (68) 95 Nasal Cannula 2.0 07/11/17 16:00 50 Physical Exam Constitutional: General Apperance: obese Level of Distress: chronically ill Lungs: Respiratory effort: no dyspnea Auscultation: breath sounds normal, no wheezing, no rales/crackles, no rhonchi Cardiovascular: Heart Auscultation: RRR, no murmurs, no rubs, no gallops Abdomen: Bowel Sounds: normal Inspection & Palpation: soft, non-distended, no tenderness, guarding & rebound Extremities: no edema Assessment and Plan Assessment and Plan IMPRESSION: 1. Atrial fibrillation with a rapid ventricular response. 2. 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 3. Hypertension. 4. Hyperlipidemia. 5. 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 As noted in the consult. ?? 2016 stroke secondary to Asymptomatic Afib Difficult situation. She is still in and out of Afib. If we attempt rate control only she has little BP room to increase BB/CCB and I would not use dig given HERMINIO and hyperkalemia this admit Amio can prolong QT and her QT was normal on admission and prolonged when in Afib. Avoid other QT prolonging drugs and Keep K > 4.0 and Mg> 2.0. She will need 100meq of K+ today and not taking PO well. If QT does not improve tomorrow with normal electrolytes then we will need to stop Amio.\\ Heparin to either coumadin with Goal INR 2-3 or NOAC once [employer] stabilizes D/W Nursing and house staff Laboratory Results Last 24 Hours Test 07/15/17 11:04 07/15/17 16:26 07/15/17 20:26 07/16/17 06:15 Bedside Glucose 202 mg/dl 167 mg/dl 150 mg/dl White Blood Count 20.52 K/uL Red Blood Count 2.57 M/uL Hemoglobin 8.5 g/dL Hematocrit 25.4 % Mean Corpuscular Volume 98.8 fL Mean Corpuscular Hemoglobin 33.1 pg Mean Corpuscular Hemoglobin Concent 33.5 g/dl RDW Standard Deviation 47.7 fL RDW Coefficient of Variation 13.3 % Platelet Count 245 K/uL Mean Platelet Volume 9.5 fL Activated Partial Thromboplast Time 64.1 SECONDS Partial Thromboplastin Ratio 2.5 Test 07/16/17 06:32 07/16/17 07:10 Bedside Glucose 158 mg/dl Sodium Level 140 mmol/L Potassium Level 3.1 mmol/L Chloride Level 107 mmol/L Carbon Dioxide Level 25 mmol/L Anion Gap 8.0 mmol/L Blood Urea Nitrogen 25 mg/dl Creatinine 1.70 mg/dl Est Creatinine Clear Calc Drug Dose 30.9 ml/min Estimated GFR () 33.4 Estimated GFR (Non- 28.8 BUN/Creatinine Ratio 14.6 Random Glucose 144 mg/dl Calcium Level 7.2 mg/dl Total Bilirubin 0.3 mg/dl Aspartate Amino Transf (AST/SGOT) 7 U/L Alanine Aminotransferase (ALT/SGPT) 13 U/L Alkaline Phosphatase 71 U/L Total Protein 4.9 gm/dl Albumin 1.7 gm/dl Globulin 3.1 gm/dl Albumin/Globulin Ratio 0.5
--- NOTE | 2017-07-16 08:58 | Family Medicine Progress Note ---
Progress Note Date of Service Jul 16, 2017. Subjective Pt evaluation today including: conversation w/ patient Was sleeping comfortably. Per RN, pt had about 8 loose BMs overnight. She did not feel up to taking most of her meds this morning. Denies any other concerns. Constitutional: No fever, No chills ENT: No hearing loss Respiratory: No cough, No sputum Abdomen: + diarrhea All Other Systems: Reviewed and Negative Medications Current Inpatient Medications Medications (Trade) Dose Ordered Sig/Ld Route Start Time Stop Time Status Last Admin Dose Admin Acetaminophen (Tylenol Tab) 650 mg Q4H PRN PO 07/09/17 21:15 08/08/17 21:14 07/16/17 04:34 650 MG Glucose (Glucose 40% Gel) 15-30 GRAMS 15 GRAMS... UD PRN PO 07/09/17 22:45 08/08/17 22:44 Glucose (Glucose Chew Tab) 4-8 Tablets 4 Tabl... UD PRN PO 07/09/17 22:45 08/08/17 22:44 Dextrose (Dextrose 50% 50ML Syringe) 25-50ML OF 50% DW IV FOR... UD PRN IV 07/09/17 22:45 08/08/17 22:44 Glucagon (Glucagon Inj) 1 mg UD PRN SQ 07/09/17 22:45 08/08/17 22:44 Multivitamins/ Minerals (Multivitamin W/ Minerals Tab) 1 tab DAILY PO 07/10/17 09:00 08/09/17 08:59 07/15/17 10:25 1 TAB Insulin Aspart (novoLOG ASPART) SLIDING SCALE If C... ACHS SC 07/10/17 21:00 08/09/17 20:59 07/15/17 12:32 2 UNITS Heparin Sodium/ Dextrose 500 ml @ 20 mls/hr Q24H PRN IV 07/10/17 23:45 08/09/17 23:44 07/16/17 01:33 20 MLS/HR Sodium Chloride 1,000 ml @ 100 mls/hr Q10H IV 07/11/17 07:00 08/10/17 06:59 Future Hold 07/12/17 03:45 100 MLS/HR Levothyroxine Sodium (Synthroid Tab) 137 mcg DAILYBB PO 07/12/17 06:00 08/11/17 05:59 07/16/17 06:05 137 MCG Magnesium Oxide (Mag-Ox Tab) 400 mg QAM PO 07/13/17 09:00 08/12/17 08:59 07/15/17 10:26 400 MG Acetaminophen (Tylenol Tab) 500 mg Q4H PRN PO 07/12/17 10:45 08/11/17 10:44 Diltiazem HCl (TIAzac CAP) 360 mg QAM PO 07/14/17 09:00 08/13/17 08:59 07/16/17 08:09 360 MG Enteral Nutritional Formula (Boost Glucose Control) 1 can DAILY PO 07/15/17 09:00 08/14/17 08:59 Warfarin Sodium (Coumadin Tab) 5 mg DAILY@16 PO 07/14/17 16:00 08/13/17 15:59 07/15/17 17:30 5 MG Aspirin (Aspirin Chew) 81 mg DAILY PO 07/15/17 09:00 08/14/17 08:59 07/15/17 10:26 81 MG Senna (Senokot Tab) 17.2 mg QAM PO 07/15/17 09:00 08/14/17 08:59 07/15/17 10:25 17.2 MG Ondansetron HCl (Zofran Tab) 4 mg Q6H PRN PO 07/15/17 08:00 08/14/17 07:59 Lactulose (Chronulac Syrup) 30 gm Q6HWA PRN PO 07/15/17 08:00 08/14/17 07:59 07/15/17 09:35 30 GM Acetaminophen 650 mg/Empty Bag 65 ml @ 260 mls/hr Q6H PRN IV 07/15/17 09:00 08/14/17 08:59 07/15/17 09:30 260 MLS/HR Potassium Chloride (Klor-Con M10) 20 meq BID PO 07/15/17 21:00 07/16/17 09:01 07/15/17 21:37 20 MEQ Amiodarone HCl (Cordarone Tab) 200 mg BID PO 07/15/17 09:45 08/12/17 09:44 07/16/17 08:10 200 MG Metoclopramide HCl (Reglan Inj) 10 mg Q6H IV. 07/15/17 10:00 08/14/17 09:59 07/16/17 04:34 10 MG Glycerin (Glycerin Adult Supp) 1 ea Q4H PRN MT 07/15/17 13:30 08/14/17 13:29 Metoprolol Tartrate (Lopressor Tab) 12.5 mg BID PO 07/15/17 21:00 08/14/17 20:59 07/16/17 08:16 12.5 MG Ceftriaxone Sodium 1 gm/ Dextrose 50 ml @ 100 mls/hr Q24H IV 07/15/17 14:30 07/17/17 14:29 07/15/17 14:28 100 MLS/HR Prochlorperazine Edisylate 5 mg/ Syringe 5 ml @ 5 mls/min Q6H PRN IV 07/15/17 18:30 08/14/17 18:29 Potassium Chloride/Sodium Chloride 1,000 ml @ 100 mls/hr Q10H IV 07/16/17 09:15 07/17/17 15:14 Potassium Chloride (Shalonda Ciel Elix) 40 meq NOW ONCE PO 07/16/17 09:00 07/16/17 09:01 Objective Vital Signs Date Time Temp Pulse Resp B/P (MAP) Pulse Ox O2 Delivery O2 Flow Rate FiO2 07/16/17 07:05 36.6 80 28 107/49 (68) 95 Nasal Cannula 2.0 07/16/17 06:10 36.9 07/16/17 04:01 38.0 66 16 116/65 (82) 95 07/16/17 04:00 Nasal Cannula 2.0 07/16/17 00:07 36.9 69 26 130/68 (88) 96 Room Air 07/15/17 23:59 Nasal Cannula 2.0 07/15/17 20:24 36.4 72 20 132/52 (78) 96 Room Air 2.0 07/15/17 20:00 Nasal Cannula 2.0 07/15/17 16:00 37.1 68 22 151/72 (98) 92 Room Air 07/15/17 16:00 Room Air 07/15/17 12:00 Room Air 07/15/17 11:25 37.2 106 28 107/65 (79) 91 Room Air Physical Exam General Appearance: WD/WN, no apparent distress Eyes: normal inspection, PERRL ENT: hearing grossly normal Neck: supple, no JVD Respiratory/Chest: lungs clear, normal breath sounds, no respiratory distress Cardiovascular: regular rate, rhythm, no murmur Abdomen: normal bowel sounds, non tender, soft, + pertinent finding (loose BM noted) Extremities: non-tender, normal inspection, no pedal edema Neurologic/Psychiatric: alert, normal mood/affect, oriented x 3 Skin: no rash Laboratory Results Last 24 Hours Test 07/15/17 11:04 07/15/17 16:26 07/15/17 20:26 07/16/17 06:15 Bedside Glucose 202 mg/dl 167 mg/dl 150 mg/dl White Blood Count 20.52 K/uL Red Blood Count 2.57 M/uL Hemoglobin 8.5 g/dL Hematocrit 25.4 % Mean Corpuscular Volume 98.8 fL Mean Corpuscular Hemoglobin 33.1 pg Mean Corpuscular Hemoglobin Concent 33.5 g/dl RDW Standard Deviation 47.7 fL RDW Coefficient of Variation 13.3 % Platelet Count 245 K/uL Mean Platelet Volume 9.5 fL Activated Partial Thromboplast Time 64.1 SECONDS Partial Thromboplastin Ratio 2.5 Test 07/16/17 06:32 07/16/17 07:10 Bedside Glucose 158 mg/dl Sodium Level 140 mmol/L Potassium Level 3.1 mmol/L Chloride Level 107 mmol/L Carbon Dioxide Level 25 mmol/L Anion Gap 8.0 mmol/L Blood Urea Nitrogen 25 mg/dl Creatinine 1.70 mg/dl Est Creatinine Clear Calc Drug Dose 30.9 ml/min Estimated GFR () 33.4 Estimated GFR (Non- 28.8 BUN/Creatinine Ratio 14.6 Random Glucose 144 mg/dl Calcium Level 7.2 mg/dl Total Bilirubin 0.3 mg/dl Aspartate Amino Transf (AST/SGOT) 7 U/L Alanine Aminotransferase (ALT/SGPT) 13 U/L Alkaline Phosphatase 71 U/L Troponin I 0.028 ng/ml Total Protein 4.9 gm/dl Albumin 1.7 gm/dl Globulin 3.1 gm/dl Albumin/Globulin Ratio 0.5 Assessment and Plan 77 yo F, on day 8 of admission for paroxysmal atrial fibrillation, HERMINIO, electrolyte abnormalities and now has diarrhea Hypokalemia - Will replete electrolytes aiming for 100mEq of K+ today - if cannot tolerate peripheral IV fluids will have to insert PICC line and give IV supplementation - Will try potassium elixer 40mEq and putting Kcl in her fluids Poor oral intake - Angelica clearly stated she does NOT want an NG tube or PEG tube for feeds Leukocytosis - Tmax 38.0 last night - WBCC continued to increase today - DDx: C Diff (Sample sent today) vs aspiration vs ?Wound infection vs from steve *Please call me if she has further fevers throughout the day Paroxysmal atrial fibrillation - Switched to PO Amiodarone 200mg BID and Diltiazem today - Anticoagulated with heparin drip & Coumadin - Will increase Coumadin to 7.5mg today Urinary tract infection - At baseline, is incontinent of urine and stool into her diaper due to CVA. Currently has Steve. - Urine shows Klebsiella and E Coli UTI - Discussed w/Pharmacy. Will avoid Levaquin due to prolonged QTc. Will continue Rocephin IV Prolonged QTc - Magnesium IV provided today - Recheck EKG daily Hyperkalemia, resolved - Had dialysis x 2 while in the ICU through neck port (removed) - Home meds on hold: Aldactone, Benazepril, and K+ Supplementation Type II Diabetes Mellitus - Metformin and Glipizide on hold - Insulin sliding scale - BSG AC and HS Hypothyroidism - Continue levothyroxine daily Hypertension - Hold home benazepril, Aldactone - Continue diltiazem as above History of CVA, possibly secondary to asymptomatic paroxysmal a/fib - Continue heparin drip, plus transition to PO anticoagulation as above - Continue Aspirin VTE: Heparin drip, SCDs Dispo: Eventually back to halfway Code status: DNR Daughter: Carmel Roca, lives out [place]. . Addendum 435PM: Spoke with the patient again, she again told me she really wants to go back to halfway tomorrow and if were to deteriorate does not want to come back to the hospital. I called her son and discussed todays events , all questions were answered. Resident Physician Supervision Note: I interviewed and examined the patient. Discussed with Dr. Nicholson and agree with findings and plan as documented in the note. Any exceptions or clarifications are listed here: None This patient was clinically worsening slightly one day prior which she is found to have C. difficile colitis this likely explains some of her subjective and objective changes otherwise things have been stable regarding her atrial fibrillation pre-existing UTI diabetes and anemia present on admission. Today her vitals show low-grade temp at 38 pulse 66 respiration 16 BP 116/65 Her cardiac exam is irregularly irregular her lungs are clear without wheezes or crackles her abdomen is normal active bowel sounds soft and mildly tender in the suprapubic area This patient initially presented with symptoms from UTI POA A. fib she now has developed C. difficile colitis with associated nausea we have initiated vancomycin therapy continuing antibiotics for UTI rate controlling agents for A. fib and conversion to oral amiodarone diltiazem and heparin transitioning to Coumadin Documented By: Byron Ochoa Resident Tracking Resident Involvement: Resident Care Provided Care Provided: Adult Hospital Medicine
[2017-07-16] MEDS: MAGNESIUM OXIDE 400 MG TAB PO SCH (09:00)
[2017-07-16] MEDS: CEROVITE ADV FORMULA TAB PO SCH (09:00)
[2017-07-16] MEDS: POTASSIUM CHLORIDE 10 MEQ TABCR PO SCH (09:00)
[2017-07-16] MEDS: ASPIRIN 81 MG CHEW PO SCH (09:00)
[2017-07-16] MEDS ORDERED: POTASSIUM CHLORIDE 20 MEQ/15 ML UDC PO ONE (09:00)
[2017-07-16] MEDS ORDERED: NSS + 20MEQ KCL 1000ML 1,000 ML IV SCH (09:15)
[2017-07-16] MEDS: POTASSIUM CHLORIDE INJ 40 MEQ in SODIUM CHLORIDE 0.9% 1000ML 1,000 ML IV SCH ×2 (10:32→19:16)
[2017-07-16] MEDS: VANCOMYCIN HCL 125 MG/2.5ML SOLN PO SCH ×3 (10:32→23:39)
[2017-07-16] MEDS: BOOST GLUCOSE CONTROL PO SCH (10:33)
[2017-07-16] MEDS: RASPBERRY SYRUP 5 ML UDP PO SCH ×3 (10:34→23:39)
[2017-07-16] MEDS: SENNA 8.6 MG TAB PO SCH (10:34)
[2017-07-16 13:17] LABS: HEMOGLOBIN 9.3 g/dL (12.0-16.0)
[2017-07-16 13:27] LABS: INR 1.7 (0.9-1.1)
[2017-07-16] MEDS: CEPHALEXIN MONOHYDRATE 500 MG CAP PO SCH ×2 (15:46→19:16)
[2017-07-16] MEDS ORDERED: WARFARIN SOD 7.5 MG TAB PO SCH (16:00)
--- NOTE | 2017-07-16 19:50 | Nephrology Progress Note ---
Nephrology Progress Note Date of Service: Jul 16, 2017. Subjective now ON on 2-3 L 02; new dx of c diff ON, remains on heparin gtt currently; states she is for d/c in am; T max ON = 38 Objective Date Time Temp Pulse Resp B/P (MAP) Pulse Ox O2 Delivery O2 Flow Rate FiO2 07/16/17 18:58 37.1 81 25 114/44 (67) 99 Nasal Cannula 2.0 07/16/17 16:00 Nasal Cannula 3.0 07/16/17 15:42 37.1 69 22 143/53 (83) 96 Nasal Cannula 3.0 07/16/17 12:00 36.5 64 30 129/55 (79) 95 Nasal Cannula 2.0 07/16/17 12:00 Nasal Cannula 3.0 07/16/17 08:00 Nasal Cannula 3.0 07/16/17 07:05 36.6 80 28 107/49 (68) 95 Nasal Cannula 2.0 07/16/17 06:10 36.9 07/16/17 04:01 38.0 66 16 116/65 (82) 95 07/16/17 04:00 Nasal Cannula 2.0 07/16/17 00:07 36.9 69 26 130/68 (88) 96 Room Air 07/15/17 23:59 Nasal Cannula 2.0 07/15/17 20:24 36.4 72 20 132/52 (78) 96 Room Air 2.0 07/15/17 20:00 Nasal Cannula 2.0 Physical Exam: General-in bed on 02nc, more tired, A& O x 3 but ? confusion, HOB at 75 degr Eyes-eomi ENT-mmm Neck-supple Lungs-coarse/ diminished Heart-irregular in 60s; trace BL edema Abdomen-steve w/ scant urine; NT, +BS Extremities-trace edema Neuro-R hemiparesis, more limited speech Current Inpatient Medications Medications (Trade) Dose Ordered Sig/Ld Route Start Time Stop Time Status Last Admin Dose Admin Acetaminophen (Tylenol Tab) 650 mg Q4H PRN PO 07/09/17 21:15 08/08/17 21:14 07/16/17 04:34 650 MG Glucose (Glucose 40% Gel) 15-30 GRAMS 15 GRAMS... UD PRN PO 07/09/17 22:45 08/08/17 22:44 Glucose (Glucose Chew Tab) 4-8 Tablets 4 Tabl... UD PRN PO 07/09/17 22:45 08/08/17 22:44 Dextrose (Dextrose 50% 50ML Syringe) 25-50ML OF 50% DW IV FOR... UD PRN IV 07/09/17 22:45 08/08/17 22:44 Glucagon (Glucagon Inj) 1 mg UD PRN SQ 07/09/17 22:45 08/08/17 22:44 Insulin Aspart (novoLOG ASPART) SLIDING SCALE If C... ACHS SC 07/10/17 21:00 08/09/17 20:59 07/16/17 12:31 1 UNITS Heparin Sodium/ Dextrose 500 ml @ 20 mls/hr Q24H PRN IV 07/10/17 23:45 08/09/17 23:44 07/16/17 01:33 20 MLS/HR Sodium Chloride 1,000 ml @ 100 mls/hr Q10H IV 07/11/17 07:00 08/10/17 06:59 Future Hold 07/12/17 03:45 100 MLS/HR Levothyroxine Sodium (Synthroid Tab) 137 mcg DAILYBB PO 07/12/17 06:00 08/11/17 05:59 07/16/17 06:05 137 MCG Magnesium Oxide (Mag-Ox Tab) 400 mg QAM PO 07/13/17 09:00 08/12/17 08:59 07/15/17 10:26 400 MG Acetaminophen (Tylenol Tab) 500 mg Q4H PRN PO 07/12/17 10:45 08/11/17 10:44 Diltiazem HCl (TIAzac CAP) 360 mg QAM PO 07/14/17 09:00 08/13/17 08:59 07/16/17 08:09 360 MG Enteral Nutritional Formula (Boost Glucose Control) 1 can DAILY PO 07/15/17 09:00 08/14/17 08:59 Aspirin (Aspirin Chew) 81 mg DAILY PO 07/15/17 09:00 08/14/17 08:59 07/15/17 10:26 81 MG Ondansetron HCl (Zofran Tab) 4 mg Q6H PRN PO 07/15/17 08:00 08/14/17 07:59 Acetaminophen 650 mg/Empty Bag 65 ml @ 260 mls/hr Q6H PRN IV 07/15/17 09:00 08/14/17 08:59 07/15/17 09:30 260 MLS/HR Amiodarone HCl (Cordarone Tab) 200 mg BID PO 07/15/17 09:45 08/12/17 09:44 07/16/17 19:17 200 MG Metoclopramide HCl (Reglan Inj) 10 mg Q6H IV. 07/15/17 10:00 08/14/17 09:59 07/16/17 19:28 10 MG Glycerin (Glycerin Adult Supp) 1 ea Q4H PRN IN 07/15/17 13:30 08/14/17 13:29 Metoprolol Tartrate (Lopressor Tab) 12.5 mg BID PO 07/15/17 21:00 08/14/17 20:59 07/16/17 19:17 12.5 MG Prochlorperazine Edisylate 5 mg/ Syringe 5 ml @ 5 mls/min Q6H PRN IV 07/15/17 18:30 08/14/17 18:29 Raspberry (Raspberry Syrup 5ml Cup) 5 ml Q6 PO 07/16/17 12:00 07/30/17 11:59 07/16/17 17:28 5 ML Vancomycin HCl (Vancomycin Oral Soln) 125 mg Q6 PO 07/16/17 12:00 07/30/17 11:59 07/16/17 17:29 125 MG Potassium Chloride 40 meq/ Sodium Chloride 1,020 ml @ 100 mls/hr [id number] IV 07/16/17 10:30 07/17/17 17:05 07/16/17 19:16 100 MLS/HR Cephalexin Monohydrate (Keflex Cap) 500 mg BID PO 07/16/17 15:00 07/16/17 21:01 07/16/17 19:16 500 MG Warfarin Sodium (Coumadin Tab) 7.5 mg DAILY@16 PO 07/16/17 16:00 08/15/17 15:59 07/16/17 15:45 7.5 MG Last 24 Hours Test 07/15/17 20:26 07/16/17 06:15 3/6/18 06:32 07/16/17 07:10 Bedside Glucose 150 mg/dl 158 mg/dl White Blood Count 20.52 K/uL Red Blood Count 2.57 M/uL Hemoglobin 8.5 g/dL Hematocrit 25.4 % Mean Corpuscular Volume 98.8 fL Mean Corpuscular Hemoglobin 33.1 pg Mean Corpuscular Hemoglobin Concent 33.5 g/dl RDW Standard Deviation 47.7 fL RDW Coefficient of Variation 13.3 % Platelet Count 245 K/uL Mean Platelet Volume 9.5 fL Activated Partial Thromboplast Time 64.1 SECONDS Partial Thromboplastin Ratio 2.5 Sodium Level 140 mmol/L Potassium Level 3.1 mmol/L Chloride Level 107 mmol/L Carbon Dioxide Level 25 mmol/L Anion Gap 8.0 mmol/L Blood Urea Nitrogen 25 mg/dl Creatinine 1.70 mg/dl Est Creatinine Clear Calc Drug Dose 30.9 ml/min Estimated GFR () 33.4 Estimated GFR (Non- 28.8 BUN/Creatinine Ratio 14.6 Random Glucose 144 mg/dl Calcium Level 7.2 mg/dl Total Bilirubin 0.3 mg/dl Aspartate Amino Transf (AST/SGOT) 7 U/L Alanine Aminotransferase (ALT/SGPT) 13 U/L Alkaline Phosphatase 71 U/L Troponin I 0.028 ng/ml Total Protein 4.9 gm/dl Albumin 1.7 gm/dl Globulin 3.1 gm/dl Albumin/Globulin Ratio 0.5 Test 07/16/17 11:22 07/16/17 13:01 07/16/17 16:09 Bedside Glucose 172 mg/dl 143 mg/dl Hemoglobin 9.3 g/dL Hematocrit 28.0 % Prothrombin Time 17.4 SECONDS Prothromb Time International Ratio 1.7 Date/Time Source Procedure Growth Status 07/16/17 07:35 Stool C.difficile Toxin B Gene (PCR) - Final Positive for C. difficile toxin B gene Complete Assessment & Plan 77 y/o F w/ NIDDM, hx of nephrotic range proteinuria, stroke w/ chronic R hemiparesis, HTN, HL, past urethral sling procedure had N/ V/ malaise worse midday today and sent to ER for eval where labs showed HERMINIO w/ K 9.1 at OSH, 8.2 here. Baseline creatinine 0.6. Severe hyperkalemia on presentation, likely induced by her outpatient medications and complicated by junctional cardiac rhythm at OSH. She needed 2 dialysis treatments to optimize K, which is currently acceptable NOW with hypokalemia getting repletion IV >> getting more dyspneic >> will lower IVF rate to 50 ml/hr Borderline oliguric acute renal failure, creatinine more than double her baseline, remains plateau'd: ischemic ATN -attributed to labile and often lower blood pressures 07/10-07/11 -on lasix/spironolactone as outpt - IV lasix prn only at this point -daily bmp Mild LV dysfunction > ? Takotsubo [employer]ING [employer] Hypomagnesemia; resolved on po mag Labile blood pressures most recently 07/11 w/ new onset a fib -on heparin gtt and coumadin -bp have been less labile past 48-72 hrs Abtx > for UTI +/- aspiration; tmax this am 38.0; on thickened liquids; blood cxs negative; does have steve and now C diff >>>REMOVE steve; note that ABTX for uti started 07/11 Appreciate consult.
[2017-07-17] MEDS: HEPARIN 25,000 UNIT/500ML D5W 500 ML IV PRN ×2 (02:14→06:44)
[2017-07-17 03:00] VITALS: BP 118/71; PULSE 72; TEMP 36.9; O2SAT 96
[2017-07-17] MEDS: METOCLOPRAMIDE HCL INJ 5 MG/ML 2 ML VIAL IV. SCH (04:44)
[2017-07-17 05:50] LABS: HEMATOCRIT 27.3 % (37-47); HEMOGLOBIN 8.9 g/dL (12.0-16.0); MEAN CELL VOLUME 99.3 fL (80-100); MEAN CORPUSCULAR HEMOGLOBIN 32.4 pg (25-34); MEAN CORPUSCULAR HGB CONC 32.6 g/dl (32-36); MEAN PLATELET VOLUME 9.1 fL (7.4-10.4); PLATELET COUNT 295 K/uL (130-400); RED CELL DISTRIBUTION WIDTH CV 13.4 % (11.5-14.5); RED CELL DISTRIBUTION WIDTH SD 48.2 fL (36.4-46.3); WHITE BLOOD COUNT 25.41 K/uL (4.8-10.8)
[2017-07-17] MEDS: VANCOMYCIN HCL 125 MG/2.5ML SOLN PO SCH ×2 (06:08→12:00)
[2017-07-17] MEDS: LEVOTHYROXINE 137 MCG TAB PO SCH (06:08)
[2017-07-17] MEDS: RASPBERRY SYRUP 5 ML UDP PO SCH ×2 (06:08→12:00)
[2017-07-17 06:14] LABS: INR 2.6 (0.9-1.1)
[2017-07-17 06:19] LABS: BASO % 0.2 %; BASO ABS # 0.06 K/uL (0-0.2); EOS % 0.2 %; EOS ABS # 0.06 K/uL (0-0.5); IG# 0.57 K/uL (0.00-0.02); LYMPH % 4.6 %; LYMPH ABS # 1.17 K/uL (1.2-3.4); MONO % 10.8 %; MONO ABS # 2.74 K/uL (0.11-0.59); NEUT ABS # 20.81 K/uL (1.4-6.5)
[2017-07-17 06:23] LABS: PTT PATIENT 74.2 SECONDS (21.0-31.0)
[2017-07-17 07:37] LABS: ALBUMIN 1.8 gm/dl (3.4-5.0); CALCIUM 7.1 mg/dl (8.5-10.1); CREATININE 1.73 mg/dl (0.60-1.20); POTASSIUM 3.4 mmol/L (3.5-5.1)
[2017-07-17 07:53] VITALS: BP 137/61; PULSE 75; TEMP 37.2; O2SAT 94
[2017-07-17] MEDS: MAGNESIUM OXIDE 400 MG TAB PO SCH (08:34)
[2017-07-17] MEDS: AMIODARONE 200 MG TAB PO SCH (08:35)
[2017-07-17] MEDS: METOPROLOL TARTRATE 25 MG TAB PO SCH (08:37)
[2017-07-17] MEDS: DILTIAZEM HCL (TIAzac) 180 MG CAPCR PO SCH (08:37)
[2017-07-17] MEDS: ASPIRIN 81 MG CHEW PO SCH (08:38)
[2017-07-17] MEDS: BOOST GLUCOSE CONTROL PO SCH (09:00)
[2017-07-17] MEDS: INSULIN ASPART 100 UNITS/ML 3 ML PEN SC SCH ×2 (09:06→14:32)
--- NOTE | 2017-07-17 10:00 | Cardiology Follow-Up ---
Subjective General Date of Service: Jul 17, 2017. Pt evaluation today including: conversation w/ patient, chart review, lab review History of Present Illness The patient is a 77 year old female Allergies Coded Allergies: Latex1 -Allergic Contact Dermititis (Verified Allergy, Intermediate, SKIN PEELS, 02/18/16) Sulfa Antibiotics (Verified Allergy, Unknown, "SKIN TURNS RED", 07/14/17) Codeine (Verified Adverse Reaction, Mild, MAKES HER SICK, 02/18/16) Social History Smoking Status: Never Smoker Hx Tobacco Use In Past Year?: No Hx Alcohol Use - Type And Amou: No Hx Substance Use - Type And Am: No Problem List Medical Problems: (1) Hypokalemia Status: Acute Review of Systems Respiratory: No shortness of breath Cardiac: No chest pain, No edema, No palpitations Physical Exam Vital Signs Last Vital Signs Documentation Date Time Temp Pulse Resp B/P (MAP) Pulse Ox O2 Delivery O2 Flow Rate FiO2 07/17/17 07:53 37.2 75 26 137/61 (86) 94 Room Air 07/17/17 04:45 3.0 07/11/17 16:00 50 Physical Exam Constitutional: General Apperance: obese Level of Distress: chronically ill Lungs: Respiratory effort: no dyspnea Auscultation: breath sounds normal, no wheezing, no rales/crackles, no rhonchi Cardiovascular: Heart Auscultation: RRR, no murmurs, no rubs, no gallops Abdomen: Bowel Sounds: normal Inspection & Palpation: soft, non-distended, no tenderness, guarding & rebound Extremities: no edema Assessment and Plan Assessment and Plan IMPRESSION: 1. Atrial fibrillation with a rapid ventricular response. 2. 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 3. Hypertension. 4. Hyperlipidemia. 5. 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 As noted in the consult. ?? 2015 stroke secondary to Asymptomatic Afib Difficult situation. As d/w primary service I would D/c amio which is likely prolonging the QT and even with amio she is not maintaining NSR, rate control strategy with CCB and BB Increase metoprolol to 25mg BID and increase as HR and BP allow Heparin to either coumadin with Goal INR 2-3 or NOAC once JEWELRY RACKER stabilizes D/W Nursing and house staff Laboratory Results Last 24 Hours Test 07/16/17 11:22 07/16/17 13:01 07/16/17 16:09 07/16/17 20:09 Bedside Glucose 172 mg/dl 143 mg/dl 167 mg/dl Hemoglobin 9.3 g/dL Hematocrit 28.0 % Prothrombin Time 17.4 SECONDS Prothromb Time International Ratio 1.7 Test 07/17/17 05:23 07/17/17 06:57 White Blood Count 25.41 K/uL Red Blood Count 2.75 M/uL Hemoglobin 8.9 g/dL Hematocrit 27.3 % Mean Corpuscular Volume 99.3 fL Mean Corpuscular Hemoglobin 32.4 pg Mean Corpuscular Hemoglobin Concent 32.6 g/dl Platelet Count 295 K/uL Mean Platelet Volume 9.1 fL Neutrophils (%) (Auto) 82.0 % Lymphocytes (%) (Auto) 4.6 % Monocytes (%) (Auto) 10.8 % Eosinophils (%) (Auto) 0.2 % Basophils (%) (Auto) 0.2 % Neutrophils # (Auto) 20.81 K/uL Lymphocytes # (Auto) 1.17 K/uL Monocytes # (Auto) 2.74 K/uL Eosinophils # (Auto) 0.06 K/uL Basophils # (Auto) 0.06 K/uL RDW Standard Deviation 48.2 fL RDW Coefficient of Variation 13.4 % Immature Granulocyte % (Auto) 2.2 % Immature Granulocyte # (Auto) 0.57 K/uL Dohle Bodies 1+ Basophilic Stippling OCCASIONAL Ovalocytes 1+ Echinocytes 1+ Prothrombin Time 27.2 SECONDS Prothromb Time International Ratio 2.6 Activated Partial Thromboplast Time 74.2 SECONDS Partial Thromboplastin Ratio 2.9 Sodium Level 141 mmol/L Potassium Level 3.4 mmol/L Chloride Level 110 mmol/L Carbon Dioxide Level 23 mmol/L Anion Gap 8.0 mmol/L Blood Urea Nitrogen 27 mg/dl Creatinine 1.73 mg/dl Est Creatinine Clear Calc Drug Dose 30.4 ml/min Estimated GFR () 32.7 Estimated GFR (Non- 28.2 BUN/Creatinine Ratio 15.8 Random Glucose 168 mg/dl Calcium Level 7.1 mg/dl Total Bilirubin 0.3 mg/dl Aspartate Amino Transf (AST/SGOT) 7 U/L Alanine Aminotransferase (ALT/SGPT) 12 U/L Alkaline Phosphatase 92 U/L Total Protein 5.0 gm/dl Albumin 1.8 gm/dl Globulin 3.2 gm/dl Albumin/Globulin Ratio 0.6 Bedside Glucose 192 mg/dl
[2017-07-17 11:47] VITALS: BP 134/66; PULSE 63; TEMP 37; O2SAT 97
[2017-07-17] MEDS ORDERED: LPR25 PO (11:51)
[2017-07-17] MEDS ORDERED: VANC1SUS PO (11:51)
--- NOTE | 2017-07-17 11:58 | Discharge Instructions ---
Discharge Instructions Date of Service Jul 17, 2017. Admission Reason for Admission: Hypokalemia, Bradycardia Discharge Discharge Diagnosis / Problem: Atrial fibrillation, C Diff Discharge Goals Goal(s): Improve disease control Activity Recommendations Activity Level: Bedrest Lifting Limitations: none Exercise/Sports Limitations: none . Additional Information Patient informed of condition: Yes Advance Directives: Yes DNR: Yes Level of Care: Other Communicable Disease: No Prognosis: Stable Instructions / Follow-Up Instructions / Follow-Up Mrs Roca was admitted and found to be hyperkalemic, requiring 2 rounds of dialysis. She went into atrial fibrillation with RVR, and rhythm control was attempted with amiodarone. She had extreme nausea with amiodarone and her QTc became increasingly prolonged, so amiodarone was stopped. She was placed on metoprolol and diltiazem for rate control, which should be titrated up as possible. She unfortunately developed C. Diff colitis, and was started on Vancomycin PO 125mg QID starting 07/16/17. Her bloodwork continued to display abnormalities but she expressed wish to return to her senior living and stop investigating causes of her symptoms. She expressed a desire to not return to the hospital if she worsened, but said she would consider dialysis if needed. We briefly discussed hospice services and she feels she is not ready for that yet. She was also placed on Warfarin for anticoagulation for a fib, and her INR on discharge was 2.7. Current Hospital Diet Patient's current hospital diet: Diabetes Type 2 Diet Discharge Diet Recommended Diet: Diabetes Type 2 Diet Pending Studies Studies pending at discharge: no Physician Orders On Transfer POLST Discussion: with POLST completion (POLST completed - DNR, comfort measures only, no PEG tube) Laboratory Results Hemoglobin A1c Test 07/10/17 05:14 Range/Units Estimated Average Glucose 123 mg/dl Hemoglobin A1c 5.9 H 4.5-5.6 % Medical Emergencies . Who to Call and When: Medical Emergencies: If at any time you feel your situation is an emergency, please call 911 immediately. . Non-Emergent Contact Non-Emergency issues call your: Primary Care Provider . . "Provider Documentation" section prepared by Angie Nicholson. . Core Measure Problem Core Measures: None
[2017-07-17] MEDS ORDERED: WARF5TAB7 PO (11:59)
[2017-07-17] MEDS ORDERED: CHOLPOW PO (12:02)
--- NOTE | 2017-07-17 12:05 | Discharge Summary ---
Discharge Summary Date of Service Jul 17, 2017. Discharge Summary Admission Date: Jul 09, 2017 at 20:44 Discharge Date: Jul 17, 2017 Discharge Disposition: Personal care Principal Diagnosis: Atrial fibrillation with RVR, Hyperkalemia, C Diff Immunizations: Have You Had Influenza Vaccine: Yes Influenza Vaccine Date: Feb 22, 2010 History of Tetanus Vaccine?: Yes History of Pneumococcal: Yes Pneumococcal Date: Apr 29, 2009 History of Hepatitis B Vaccine: No Consultations: Cardiology ICU Nephrology Medication Reconciliation New Medications: Cholestyramine (Bulk) (Cholestyramine) 1 Pow Pow 1 UNIT PO BID for 30 Days, #30 UNITS Warfarin Sod (Jantoven) 5 Mg Tab 5 MG PO DAILY for 30 Days, #30 TAB Metoprolol Tartrate (Lopressor) 25 Mg Tab 25 MG PO BID for 30 Days, #60 TAB Vancomycin HCl (Vancomycin HCl + Syrspend) 50 Mg/Ml Mary 125 MG PO Q6 for 13 Days Tx started 07/16/17 Continued Medications: Acetaminophen (Tylenol) 500 Mg Tab 1000 MG PO PRN, TAB Albuterol Sulfate (Albuterol Sulfate) 1.25 Mg/3 Ml Neb 2.5 MG INH Q6 for 15 Days, #150 ML Aspirin (Aspirin) 81 Mg Chw 81 MG PO DAILY for 30 Days, #30 TAB 3 Refills Diltiazem Hcl Ext Rel (Tiazac) 300 Mg Capcr 300 MG PO DAILY, CAP Levothyroxine Sodium (Levothyroxine Sodium) 137 Mcg Tab 137 MCG PO DAILY for 90 Days, #90 TAB 3 Refills Ondansetron Odt (Zofran Odt) 8 Mg Soltab 4 MG PO Q6 PRN for Nausea Potassium Chloride (Micro-K Ext Rel) 10 Meq Capcr 10 MEQ PO DAILY, CAP Ranitidine (Zantac) 150 Mg Tab 150 MG PO BID, TAB Spironolactone (Spironolactone) 25 Mg Tab 25 MG PO DAILY Tramadol HCl (Tramadol HCl) 50 Mg Tab 50 MG PO TID PRN for Pain Discontinued Medications: Atorvastatin (Lipitor) 40 Mg Tab 40 MG PO DAILY, TAB Benazepril (Lotensin) 40 Mg Tab 40 MG PO HS, 0 Refills Fish Oil ([place]-3) 1 Ea Cap 1 CAP PO BID, CAP Furosemide (Lasix) 40 Mg Tab 60 MG PO DAILY, TAB Glipizide (Glucotrol) 10 Mg Tab 10 MG PO DAILY, TAB Glipizide (Glucotrol) 5 Mg Tab 5 MG PO DAILY, TAB Metformin Ext Rel (Glucophage Ext Rel) 500 Mg Tab 1000 MG PO BID, TAB Multiple Vitamins W/ Minerals (Centrum Silver Adult 50+) 1 Tab Tab 1 TAB PO DAILY Discharge Exam Review of Systems: Constitutional: No fever, No chills, No weight loss, No weakness Eyes: No worsening of vision ENT: No hearing loss Respiratory: No cough, No sputum, No wheezing Cardiovascular: No chest pain, No orthopnea, No PND Abdomen: + diarrhea, No pain, No nausea, No vomiting, No constipation Musculoskeletal: No joint pain, No muscle pain Genitourinary - Female: + urinary incontinence, No dysuria, No urinary frequency, No urinary urgency, No urinary retention, No hematuria Neurologic: + weakness (to R side, at baseline), No memory loss, No paralysis Psychiatric: No depression symptoms, No anhedonism Endocrine: No fatigue Hematologic / Lymphatic: No abnormal bleeding/bruising Integumentary: No rash Physical Exam: General Appearance: WD/WN, no apparent distress Eyes: normal inspection, PERRL ENT: hearing grossly normal Neck: supple, no JVD Respiratory/Chest: lungs clear, normal breath sounds, no respiratory distress Cardiovascular: regular rate, rhythm, no murmur, normal peripheral pulses Abdomen / GI: normal bowel sounds, non tender, soft Extremities: no calf tenderness, no pedal edema Neurologic/Psychiatric: alert, normal mood/affect, oriented x 3 Skin: no rash Hospital Course HPI from Admitting Provider Dr Camejo: Patient is a 77 year old female with a past medical history of Right Sided CVA with hemiparesis in 2016, HTN, HLD, DM, Stage 2 CKD, and Hypothyroidism s/p treatment of thyroid cancer that presents as a Direct Admit from [facility] with Hyperkalemia. The patient reports having nausea and vomiting over the last week with minimal po intake. The patient also states that she has been having a productive cough but denies any shortness of breath, fevers, chills, or sweats. The patient was found to have a Potassium of 9.2 with a Creatinine of 1.4. The patient was given Sodium Bicarb 50ml, Calcium Cl 1gm, Dextrose 50% 50ml, Insulin Regular 2.5 units, Albuterol 1 amp, and 500ml of NS. The patient denies any chest pain, palpitations, shortness of breath, abdominal discomfort, or any other acute complaints. The patient at baseline has right sided hemiparesis, paralysis with sensation of the left lower extremity, and limited mobility of her left upper extremity. The patient is incontinent to urine and stool and has a steve placed at [facility] but does not have a chronic steve. The patient has only had 1 bowel movement over the last week and normally has 1 bowel movement daily. HOSPITAL COURSE: Mrs Roca was admitted and found to be hyperkalemic, requiring 2 rounds of dialysis. She went into atrial fibrillation with RVR, and rhythm control was attempted with amiodarone. She had extreme nausea with amiodarone and her QTc became increasingly prolonged, so amiodarone was stopped. She was placed on metoprolol and diltiazem for rate control, which should be titrated up as possible. She was also placed on Warfarin for anticoagulation for a fib, and her INR on discharge was 2.7. She unfortunately developed C. Diff colitis, and was started on Vancomycin PO 125mg QID starting 07/16/17. Her bloodwork continued to display abnormalities but she expressed wish to return to her fdc and stop investigating causes of her symptoms. She expressed a desire to not return to the hospital if she worsened, but said she would consider dialysis if needed. We briefly discussed hospice services and she feels she is not ready for that yet. She did request that I stop any non-essential medications since it was getting difficult to chew them. We discussed her common medications and elected to stop her Metformin & Glipizide (her A1c was 5.9% and it could contribute to diarrhea) and her statin. Problem List: Hypokalemia - Did not tolerate K elixer, will resume her home K+ sparing diuretic ( Spironolactone) and her hose K+ supplementation - Recommend rechecking a BMP within the week Poor oral intake - Angelica clearly stated she does NOT want an NG tube or PEG tube for feeds C Diff Colitis - Vancomycin PO started 07/16/17 - Contact precautions Paroxysmal atrial fibrillation - Amiodarone stopped due to QTc prolongation - Diltiazem and Metoprolol for rate control, increase as tolerated - INR 2.7 today, will continue w/coumadin 5mg but has only started this in the last 3 days and may need doses monitored / adjusted. Could consider switching to NOAC if her renal function improved. Urinary tract infection - At baseline, is incontinent of urine and stool into her diaper due to CVA. - Urine shows Klebsiella and E Coli UTI - Completed 7 days of UTI tx Prolonged QTc - Stopped Amiodarone on 07/17/17 Hyperkalemia, resolved - Had dialysis x 2 while in the ICU through neck port (removed) Type II Diabetes Mellitus - Metformin and Glipizide stopped - pt has an A1c of 5.9%, and has had chronic diarrhea, potentially worse by metformin. Hypothyroidism - Continue levothyroxine daily Hypertension - Continue diltiazem as above History of CVA, possibly secondary to asymptomatic paroxysmal a/fib - Continue Aspirin VTE: Heparin drip, SCDs Dispo: Eventually back to fdc Code status: DNR. POLST filled out, signed - pt DNR, DNI, no PEG tube, IV Abx for comfort Daughter: Carmel Roca, [place]. . Resident Physician Supervision Note: I interviewed and examined the patient. Discussed with Dr. Nicholson and agree with findings and plan as documented in the note. Any exceptions or clarifications are listed here: None This patient states that she does not want any more acute care and wants to go home. She did discuss and fill out a polst form. She did develop C. difficile here in our facility is being treated with oral vancomycin. She had atrial fibrillation which need to rate controlling agents however amiodarone caused prolonged QT interval and this was discontinued. Dr. Padilla and her ballistics teacher is in agreement with discontinuing the amiodarone at this point in time. And she is being treated for a urinary tract infection. Her vital signs are 37 2 pulse 75 respiration rate 2025 blood pressure 137/61 her cardiac exam is irregularly irregular with controlled ventricular rate her lungs are actually clear abdomen normoactive bowel sounds are Obviously the patient does not want any additional acute care and she will return to her fdc with form filled out to not return if she becomes acutely ill but more pursue comfort measures. We will continue to treat her active problems at this time including her C. difficile Documented By: Byron Ochoa Total Time Spent: Greater than 30 minutes This includes examination of the patient, discharge planning, medication reconciliation, and communication with other providers. Discharge Instructions Please refer to the electronic Patient Visit Report (Discharge Instructions) for additional information. Additional Copies To Ricardo Rodriguez M.D. Resident Tracking Resident Involvement: Resident Care Provided Care Provided: [facility]
[2017-07-17 13:09] LABS: PTT PATIENT 72.5 SECONDS (21.0-31.0)
[2017-07-17 15:09] VITALS: BP 134/66; PULSE 63; TEMP 37; O2SAT 97
--- NOTE | 2017-07-17 18:13 | Nephrology Progress Note ---
Nephrology Progress Note Date of Service: Jul 17, 2017. Subjective pt discharged before I examined her Objective Date Time Temp Pulse Resp B/P (MAP) Pulse Ox O2 Delivery O2 Flow Rate FiO2 07/17/17 15:09 37.0 63 28 97 Room Air 07/17/17 12:05 Room Air 07/17/17 11:47 37.0 63 28 134/66 (88) 97 Room Air 07/17/17 08:20 Room Air 07/17/17 07:53 37.2 75 26 137/61 (86) 94 Room Air 07/17/17 04:45 Nasal Cannula 3.0 07/17/17 03:00 36.9 72 29 118/71 (87) 96 Nasal Cannula 3.0 07/16/17 23:36 37.5 71 28 134/61 (85) 95 Nasal Cannula 3.0 07/16/17 23:30 Nasal Cannula 3.0 07/16/17 20:00 Nasal Cannula 3.0 07/16/17 18:58 37.1 81 25 114/44 (67) 99 Nasal Cannula 2.0 Current Inpatient Medications Medications (Trade) Dose Ordered Sig/Ld Route Start Time Stop Time Status Last Admin Dose Admin Acetaminophen (Tylenol Tab) 650 mg Q4H PRN PO 07/09/17 21:15 08/08/17 21:14 07/16/17 04:34 650 MG Glucose (Glucose 40% Gel) 15-30 GRAMS 15 GRAMS... UD PRN PO 07/09/17 22:45 08/08/17 22:44 Glucose (Glucose Chew Tab) 4-8 Tablets 4 Tabl... UD PRN PO 07/09/17 22:45 08/08/17 22:44 Dextrose (Dextrose 50% 50ML Syringe) 25-50ML OF 50% DW IV FOR... UD PRN IV 07/09/17 22:45 08/08/17 22:44 Glucagon (Glucagon Inj) 1 mg UD PRN SQ 07/09/17 22:45 08/08/17 22:44 Insulin Aspart (novoLOG ASPART) SLIDING SCALE If C... ACHS SC 07/10/17 21:00 08/09/17 20:59 07/17/17 14:32 6 UNITS Sodium Chloride 1,000 ml @ 100 mls/hr Q10H IV 07/11/17 07:00 08/10/17 06:59 Future Hold 07/12/17 03:45 100 MLS/HR Levothyroxine Sodium (Synthroid Tab) 137 mcg DAILYBB PO 07/12/17 06:00 08/11/17 05:59 07/17/17 06:08 137 MCG Magnesium Oxide (Mag-Ox Tab) 400 mg QAM PO 07/13/17 09:00 08/12/17 08:59 07/17/17 08:34 400 MG Acetaminophen (Tylenol Tab) 500 mg Q4H PRN PO 07/12/17 10:45 08/11/17 10:44 Diltiazem HCl (TIAzac CAP) 360 mg QAM PO 07/14/17 09:00 08/13/17 08:59 07/17/17 08:37 360 MG Enteral Nutritional Formula (Boost Glucose Control) 1 can DAILY PO 07/15/17 09:00 08/14/17 08:59 07/17/17 09:00 1 CAN Aspirin (Aspirin Chew) 81 mg DAILY PO 07/15/17 09:00 08/14/17 08:59 07/17/17 08:38 81 MG Ondansetron HCl (Zofran Tab) 4 mg Q6H PRN PO 07/15/17 08:00 08/14/17 07:59 Acetaminophen 650 mg/Empty Bag 65 ml @ 260 mls/hr Q6H PRN IV 07/15/17 09:00 08/14/17 08:59 07/15/17 09:30 260 MLS/HR Prochlorperazine Edisylate 5 mg/ Syringe 5 ml @ 5 mls/min Q6H PRN IV 07/15/17 18:30 08/14/17 18:29 Raspberry (Raspberry Syrup 5ml Cup) 5 ml Q6 PO 07/16/17 12:00 07/30/17 11:59 07/17/17 06:08 5 ML Vancomycin HCl (Vancomycin Oral Soln) 125 mg Q6 PO 07/16/17 12:00 07/30/17 11:59 07/17/17 06:08 125 MG Potassium Chloride 40 meq/ Sodium Chloride 1,020 ml @ 0 mls/hr [id number] IV 07/16/17 10:30 07/16/17 19:16 100 MLS/HR Metoprolol Tartrate (Lopressor Tab) 25 mg BID PO 07/17/17 21:00 08/14/17 20:59 Last 24 Hours Test 07/16/17 20:09 07/17/17 05:23 07/17/17 06:57 07/17/17 10:41 Bedside Glucose 167 mg/dl 192 mg/dl 199 mg/dl White Blood Count 25.41 K/uL Red Blood Count 2.75 M/uL Hemoglobin 8.9 g/dL Hematocrit 27.3 % Mean Corpuscular Volume 99.3 fL Mean Corpuscular Hemoglobin 32.4 pg Mean Corpuscular Hemoglobin Concent 32.6 g/dl Platelet Count 295 K/uL Mean Platelet Volume 9.1 fL Neutrophils (%) (Auto) 82.0 % Lymphocytes (%) (Auto) 4.6 % Monocytes (%) (Auto) 10.8 % Eosinophils (%) (Auto) 0.2 % Basophils (%) (Auto) 0.2 % Neutrophils # (Auto) 20.81 K/uL Lymphocytes # (Auto) 1.17 K/uL Monocytes # (Auto) 2.74 K/uL Eosinophils # (Auto) 0.06 K/uL Basophils # (Auto) 0.06 K/uL RDW Standard Deviation 48.2 fL RDW Coefficient of Variation 13.4 % Immature Granulocyte % (Auto) 2.2 % Immature Granulocyte # (Auto) 0.57 K/uL Dohle Bodies 1+ Basophilic Stippling OCCASIONAL Ovalocytes 1+ Echinocytes 1+ Prothrombin Time 27.2 SECONDS Prothromb Time International Ratio 2.6 Activated Partial Thromboplast Time 74.2 SECONDS Partial Thromboplastin Ratio 2.9 Sodium Level 141 mmol/L Potassium Level 3.4 mmol/L Chloride Level 110 mmol/L Carbon Dioxide Level 23 mmol/L Anion Gap 8.0 mmol/L Blood Urea Nitrogen 27 mg/dl Creatinine 1.73 mg/dl Est Creatinine Clear Calc Drug Dose 30.4 ml/min Estimated GFR () 32.7 Estimated GFR (Non- 28.2 BUN/Creatinine Ratio 15.8 Random Glucose 168 mg/dl Calcium Level 7.1 mg/dl Total Bilirubin 0.3 mg/dl Aspartate Amino Transf (AST/SGOT) 7 U/L Alanine Aminotransferase (ALT/SGPT) 12 U/L Alkaline Phosphatase 92 U/L Total Protein 5.0 gm/dl Albumin 1.8 gm/dl Globulin 3.2 gm/dl Albumin/Globulin Ratio 0.6 Test 07/17/17 12:36 Activated Partial Thromboplast Time 72.5 SECONDS Partial Thromboplastin Ratio 2.8
[2017-07-17] MEDS ORDERED: METOPROLOL TARTRATE 25 MG TAB PO SCH (21:00)
== END 2017-07-17 17:54 | DRG 640 ==
LOC: C.MSICU 20:44 → ENRESERV 07-12 16:58 → C.2E 07-12 17:47
PROVIDERS: ADMIT Internal Medicine; ATTEND Family Medicine
PROC: 02HV33Z Insertion of Infusion Device into Superior Vena Cava, Percutaneous Approach (ICD-10-PCS; principal; 2017-07-09)
DX: E87.5 Hyperkalemia (principal); N17.0 Acute kidney failure with tubular necrosis; I69.351 Hemiplegia and hemiparesis following cerebral infarction affecting right dominant side; I48.92 Unspecified atrial flutter; N39.0 Urinary tract infection, site not specified; A04.72 Enterocolitis due to Clostridium difficile, not specified as recurrent; I51.81 Takotsubo syndrome; T50.3X5A Adverse effect of electrolytic, caloric and water-balance agents, initial encounter; T50.0X5A Adverse effect of mineralocorticoids and their antagonists, initial encounter; T46.4X5A Adverse effect of angiotensin-converting-enzyme inhibitors, initial encounter; R00.1 Bradycardia, unspecified; B96.1 Klebsiella pneumoniae [K. pneumoniae] as the cause of diseases classified elsewhere; B96.20 Unspecified Escherichia coli [E. coli] as the cause of diseases classified elsewhere; E83.42 Hypomagnesemia; I48.0 Paroxysmal atrial fibrillation; I45.81 Long QT syndrome; T46.2X5A Adverse effect of other antidysrhythmic drugs, initial encounter; N18.2 Chronic kidney disease, stage 2 (mild); N18.3 Chronic kidney disease, stage 3 (moderate); I69.398 Other sequelae of cerebral infarction; R32 Unspecified urinary incontinence; I13.10 Hypertensive heart and chronic kidney disease without heart failure, with stage 1 through stage 4 chronic kidney disease, or unspecified chronic kidney disease; E89.0 Postprocedural hypothyroidism; E78.5 Hyperlipidemia, unspecified; E11.22 Type 2 diabetes mellitus with diabetic chronic kidney disease; R15.9 Full incontinence of feces; K21.9 Gastro-esophageal reflux disease without esophagitis; E66.9 Obesity, unspecified; Z51.81 Encounter for therapeutic drug level monitoring; Z79.899 Other long term (current) drug therapy; Z79.84 Long term (current) use of oral hypoglycemic drugs; Z79.82 Long term (current) use of aspirin; Z66 Do not resuscitate; Z85.850 Personal history of malignant neoplasm of thyroid; Z68.39 Body mass index [BMI] 39.0-39.9, adult; Z88.2 Allergy status to sulfonamides; Z88.5 Allergy status to narcotic agent; Z91.040 Latex allergy status